=== PATIENT | female | born 1960 | race Caucasian/White ===

== ENCOUNTER → 2018-02-24 13:02 | Outpatient (CLI) | payer OTHER, SELFPAY | PROVIDERS: PCP Family Medicine; Visit Provider Family Medicine | DX: M85.851 Other specified disorders of bone density and structure, right thigh (principal) | CPT/HCPCS: 77080 ==

== ENCOUNTER → 2018-08-31 10:33 | Outpatient (CLI) | payer OTHER, SELFPAY ==
--- NOTE | 2018-08-31 | DI.CT.S_ITS ---
PROCEDURE: CT SOFT TISSUE NECK WO/W CON INDICATIONS: LEFT SIDED CHRONIC SIALOADENITIS TECHNIQUE: Before and after the administration of intravenous contrast, 2.0 mm axial sections acquired through the neck and down to the pierre. Additional 2.0 mm coronal and sagittal reformats were generated of the contrast enhanced images. For radiation dose reduction, the following was used: automated exposure control. COMPARISON: None. FINDINGS: Image quality: Excellent. Parotid and submandibular glands: Parotid and submandibular glands are normal in size. A couple of small soft tissue nodules are present within right parotid gland. No sialolithiasis. Thyroid: Thyroid gland is normal in morphology. Small low density nodules in thyroid lobes are noted bilaterally. Lymph nodes: No enlarged lymph nodes seen throughout the neck. Vessels: Visualized vasculature appears patent. Neck spaces: The oropharynx, nasopharynx, and pharynx demonstrate no mucosal lesions. The vocal cords, false vocal cords, pyriform sinuses, epiglottis, vallecula, and tongue base all appear normal. Extramucosal spaces appear unremarkable. Glands: The parotid and submandibular glands appear normal. Miscellaneous: Visualized lungs appear clear. Superficial soft tissues appear normal. Bones: No suspicious bony lesions. There is moderate degenerative disc disease at C5-6. Visualized sinuses and mastoids appear unremarkable. IMPRESSION: 1. No sialolithiasis. 2. Small soft tissue nodules are present in the right parotid gland. Differential diagnoses include benign parotid tumors such as pleomorphic adenomas, small intraparotid lymph nodes and less likely malignant parotid neoplasms. Dictated by: Sussy Aguilar M.D. on 08/31/2018 at 13:08 Approved by: Sussy Aguilar M.D. on 08/31/2018 at 14:32
== END ==
PROVIDERS: PCP Family Medicine; Visit Provider Otolaryngology
DX: K11.23 Chronic sialoadenitis (principal); M50.322 Other cervical disc degeneration at C5-C6 level
CPT/HCPCS: 70492; Q9967

== ENCOUNTER 2019-09-05 16:45 | Outpatient (RCR) | payer OTHER, SELFPAY ==
--- NOTE | 2019-04-18 17:35 | PT.OIE ---
Current Diagnoses Medial epicondylitis, right elbow (04/18/19) Lateral epicondylitis, right elbow (04/18/19) Provider Visit Care Team Role Provider Type Taj Farley MD Primary Care Provider Physician Specialty: Family Practice Address: [address] [place], [address] Email: [email or web address] Kurt Huber DO Attending Provider Non-Staff Specialty: Orthopedics Address: [address] [place] [address], [id number] Email: Physical Therapy Initial Evaluation PT-OP-A Visit Information Start: 04/18/19 15:54 Freq: Status: Active Protocol: Document 04/18/19 16:47 EA (Rec: 04/18/19 17:22 EA [id number]) Out-Patient Physical Therapy Visit Information Visit Information Visit Type Initial Evaluation Visit Start Time 14:30 Visit Stop Time 15:05 Total Visit Minutes 35 Visit Number 1 Evaluation Information Evaluation Date 04/18/19 PT-OP-B Current Condition Start: 04/18/19 15:54 Freq: Status: Active Protocol: Document 04/18/19 16:47 EA (Rec: 04/18/19 17:22 EA [id number]) Current Condition History of Current Condition Onset Date 07/2018 Current Complaints gripping and lifting difficulty due to right elbow pain History of Current Condition Patient reports multiple injection to left elbow years ago due to tennis elbow diagnosis. She reports this condition recurs again last July/2018 but got better on October 2018 after steroid shots. She reports on 2018 she injured her elbow at work by banging her elbow at the wall and made re- aggravated the condition. She went to see her doctor few days after the injury and diagnoses to have left tennis elbow. Prior Treatments and Tests X-rays recently with not fracture identified per patient No formal PT treatment reports Future Testing and Treatments Planned Doctor's follow up next week. 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 Functional Limitations- Mobility/Gait Limited with hair combing, fixing upper undergarment Functional Limitations- Work/School Unable to comeback to work yet due to limitation Functional Limitations- Recreation/ Unable to perform cooking/baking Hobbies Personal Factors Other Personal Factors That May Effect Chronicity of the condition Therapy/Recovery PT-OP-C Subjective Start: 04/18/19 15:54 Freq: Status: Active Protocol: Document 04/18/19 16:47 EA (Rec: 04/18/19 17:22 EA [id number]) OP-PT Subjective Patient Comments Patient Comments I can't use my hair pin. She states that pain is somewhat burning and increased if I reach over my head or fix my hair. Patient Reported Progress Worse Patient Questionnaires Quick Dash- Upper Extremity Quick Dash UE Score 86 Quick Dash UE Impairment 80 to 99% Impaired (Score 80- 99) PT-OP-F Manual Assessment Start: 04/18/19 15:54 Freq: Status: Active Protocol: Document 04/18/19 16:47 EA (Rec: 04/18/19 17:22 EA [id number]) Manual Assessments Soft Tissue Assessment Soft Tissue Mobility Assessment Tight wrist extensors, radial deviators, pronators, R Joint Mobility Assessment Joint Mobility Assessment Normal PT-OP-J Posture/Palpation/Skin Start: 04/18/19 15:54 Freq: Status: Active Protocol: Document 04/18/19 16:47 EA (Rec: 04/18/19 17:22 EA [id number]) Posture Evaluation Comments Posture Comments WFL. Elbow slightly bent in standing Skin Assessment Other Assessments Skin Assessment Comments No signs of acute inflammation or skin discoloration noted. PT-OP-K Range of Motion Start: 04/18/19 15:54 Freq: Status: Active Protocol: Document 04/18/19 16:47 EA (Rec: 04/18/19 17:22 EA [id number]) Elbow/Forearm Range of Motion Elbow/Forearm Right Active Elbow Flexion (degrees) 135 Elbow Extension (degrees) 0 Elbow Hyperextension 5 Pronation (degrees) 80 Supination (degrees) 90 Wrist Goniometric Range of Motion Wrist Left Wrist ROM WFL Yes Right Wrist ROM WFL No Flexion Active (degrees) 45 Extension Active (degrees) 30 Ulnar Deviation Active (degrees) 30 Radial Deviation Active (degrees) 30 PT-OP-L Special Tests Start: 04/18/19 15:54 Freq: Status: Active Protocol: Document 04/18/19 16:47 EA (Rec: 04/18/19 17:22 EA [id number]) Special Tests Wrist/Hand Special Tests Lateral Epicondylitis Extended Test Results + PT-OP-M Strength Start: 04/18/19 15:54 Freq: Status: Active Protocol: Document 04/18/19 16:47 EA (Rec: 04/18/19 17:22 EA [id number]) Elbow/Forearm Strength Elbow and Forearm Manual Muscle Testing Left Flexion (C6) 5 Normal Extension (C7) 5 Normal Pronation 5 Normal Supination 5 Normal Right Flexion (C6) 4 Good Extension (C7) 4 Good Supination 3+ Fair+ Wrist Strength Wrist Manual Muscle Testing Left Reason Not Measured WFL Right Flexion (C7) 4- Good- Extension (C6) 3+ Fair+ Ulnar Deviation 3+ Fair+ Radial Deviation 3+ Fair+ PT-OP-Q Treatments Start: 04/18/19 15:54 Freq: Status: Active Protocol: Document 04/18/19 16:47 EA (Rec: 04/18/19 17:22 EA [id number]) Self-Care/Home Management Treatment Education Patient Education Home Exercise Program Joint Protection Pain Management Safety PT-OP-T Assessment and Plan Start: 04/18/19 15:54 Freq: Status: Active Protocol: Document 04/18/19 15:55 EA (Rec: 04/18/19 15:57 EA [id number]) Physical Therapy Assessment Rehab Potential Rehabilitation Potential Good Evaluation Complexity Number of Personal Factors/Comorbidities 0 Number of Body Systems Impaired 1-2 Clinical Presentation at Evaluation Evolving Impairments Impairments Activity Tolerance Functional Activities Pain ROM Soft Tissue Mobility Strength Goals Four Impairment Impaired ROM Safekeeping Clerk Goal (LTG) Patient will reach full wrist AROM to enable patient perform hand task without limitation LTG Duration 4 wks Three Impairment Right elbow Pain 7/10 Safekeeping Clerk Goal (LTG) Patient will subjectively report pain score of 2/10 to enable patient perform home task that requires wrist motions without limitation. LTG Duration 5 wks Two Impairment QuickDash score 89/100 Halfway Goal (LTG) Patient will have quickDash score of <25/100 LTG Duration 5 wks One Impairment No HEP in place Safekeeping Clerk Goal (LTG) Patient will perform HEP safely and independently. LTG Duration 3 wks Assessment Summary Assessment Pleasant 58 y/o F patient with referring diagnosis of right lateral epicondylitis. Today patient exhibited difficulty of right wrist motion in most directions. Lateral epicondylitis special tests and signs and symptoms are consistent with a referring diagnosis. Due to impaired wrist extensor function, patient unable to perform daily dominant hand tasks that requires wrist extension/ deviations that is supposed to be normal at her age. Patient would benefit to skilled PT with emphasis of regaining ROM, strengthening, and regular preventative education. Patient exhibits good potential for recovery and will likely get back to PLOF. Physical Therapy Plan Frequency and Duration Frequency of Treatment 2x/Week Duration of Treatment 8 wks Plan of Care Start Date 04/18/19 Plan of Care End Date 06/13/19 Therapeutic Interventions Therapeutic Interventions Home Exercise Program Joint Mobilizations Manual Therapy Patient/Caregiver Education Self-Care/Home Management Soft Tissue Mobilization Taping Therapeutic Exercises Modalities Cold Pack/Ice Massage Electric Stimulation Hot Packs Ultrasound Next Visit Focus/Plan Next Note Type Treatment Note
--- NOTE | 2019-04-18 17:35 | PT.OPPOC ---
Current Diagnoses Medial epicondylitis, right elbow (04/18/19) Lateral epicondylitis, right elbow (04/18/19) Provider Visit Care Team Role Provider Type Taj Farley MD Primary Care Provider Physician Specialty: Family Practice Address: [address] [place], [address] Email: [email or web address] Kurt Huber DO Attending Provider Non-Staff Specialty: Orthopedics Address: [address] [place] [address], [id number] Email: Plan Of Care PT-OP-T Assessment and Plan Start: 04/18/19 15:54 Freq: Status: Active Protocol: Document 04/18/19 15:55 EA (Rec: 04/18/19 15:57 EA [id number]) Physical Therapy Assessment Rehab Potential Rehabilitation Potential Good Evaluation Complexity Number of Personal Factors/Comorbidities 0 Number of Body Systems Impaired 1-2 Clinical Presentation at Evaluation Evolving Impairments Impairments Activity Tolerance Functional Activities Pain ROM Soft Tissue Mobility Strength Goals Four Impairment Impaired ROM Care Home Goal (LTG) Patient will reach full wrist AROM to enable patient perform hand task without limitation LTG Duration 4 wks Three Impairment Right elbow Pain 7/10 Hole Filler Goal (LTG) Patient will subjectively report pain score of 2/10 to enable patient perform home task that requires wrist motions without limitation. LTG Duration 5 wks Two Impairment QuickDash score 89/100 Hole Filler Goal (LTG) Patient will have quickDash score of <25/100 LTG Duration 5 wks One Impairment No HEP in place Care Home Goal (LTG) Patient will perform HEP safely and independently. LTG Duration 3 wks Assessment Summary Assessment Pleasant 58 y/o F patient with referring diagnosis of right lateral epicondylitis. Today patient exhibited difficulty of right wrist motion in most directions. Lateral epicondylitis special tests and signs and symptoms are consistent with a referring diagnosis. Due to impaired wrist extensor function, patient unable to perform daily dominant hand tasks that requires wrist extension/ deviations that is supposed to be normal at her age. Patient would benefit to skilled PT with emphasis of regaining ROM, strengthening, and regular preventative education. Patient exhibits good potential for recovery and will likely get back to PLOF. Physical Therapy Plan Frequency and Duration Frequency of Treatment 2x/Week Duration of Treatment 8 wks Plan of Care Start Date 04/18/19 Plan of Care End Date 06/13/19 Therapeutic Interventions Therapeutic Interventions Home Exercise Program Joint Mobilizations Manual Therapy Patient/Caregiver Education Self-Care/Home Management Soft Tissue Mobilization Taping Therapeutic Exercises Modalities Cold Pack/Ice Massage Electric Stimulation Hot Packs Ultrasound Next Visit Focus/Plan Next Note Type Treatment Note Plan of Care Dates Plan of Care Start Date 04/18/19 Plan of Care End Date 06/13/19 Please Sign and Return: I have reviewed this Plan of Care and certify that the skilled therapy services above are required to meet the patient?s needs. Physician Signature Date Printed Name and Credentials Clinical Instructor Signature Printed Name and Credentials
--- NOTE | 2019-04-24 15:15 | PT.OTN ---
Current Diagnoses Medial epicondylitis, right elbow (04/24/19) Lateral epicondylitis, right elbow (04/24/19) Physical Therapy Treatment Note PT-OP-A Visit Information Start: 04/18/19 15:54 Freq: Status: Active Protocol: Document 04/24/19 14:30 DCW (Rec: 04/24/19 15:15 DCW [id number]) Out-Patient Physical Therapy Visit Information Visit Information Visit Type Treatment Note Visit Start Time 14:30 Visit Stop Time 15:15 Total Visit Minutes 45 Visit Number 2 Evaluation Information Evaluation Date 04/18/19 PT-OP-B Current Condition Start: 04/18/19 15:54 Freq: Status: Active Protocol: Document 04/18/19 16:47 EA (Rec: 04/18/19 17:22 EA [id number]) Current Condition History of Current Condition Onset Date 07/2018 Current Complaints gripping and lifting difficulty due to right elbow pain History of Current Condition Patient reports multiple injection to left elbow years ago due to tennis elbow diagnosis. She reports this condition recurs again last July/2018 but got better on October 2018 after steroid shots. She reports on 2018 she injured her elbow at work by banging her elbow at the wall and made re- aggravated the condition. She went to see her doctor few days after the injury and diagnoses to have left tennis elbow. Prior Treatments and Tests X-rays recently with not fracture identified per patient No formal PT treament reports Future Testing and Treatments Planned Doctor's follow up next week. 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 Functional Limitations- Mobility/Gait Limited with hair combing, fixing upper undergarment Functional Limitations- Work/School Unable to comeback to work yet due to limitation Functional Limitations- Recreation/ Unable to perform cooking/ Hobbies baking Personal Factors Other Personal Factors That May Effect Chronicity of the condition Therapy/Recovery PT-OP-C Subjective Start: 04/18/19 15:54 Freq: Status: Active Protocol: Document 04/24/19 14:30 DCW (Rec: 04/24/19 15:15 DCW [id number]) OP-PT Subjective Patient Comments Patient Comments I squeezed my toothpaste tube today, which is a big milestone. PT-OP-F Manual Assessment Start: 04/18/19 15:54 Freq: Status: Active Protocol: Document 04/18/19 16:47 EA (Rec: 04/18/19 17:22 EA [id number]) Manual Assessments Soft Tissue Assessment Soft Tissue Mobility Assessment Tight wrist extensors, radial deviators, pronators, R Joint Mobility Assessment Joint Mobility Assessment Normal PT-OP-J Posture/Palpation/Skin Start: 04/18/19 15:54 Freq: Status: Active Protocol: Document 04/18/19 16:47 EA (Rec: 04/18/19 17:22 EA [id number]) Posture Evaluation Comments Posture Comments WFL. Elbow slightly bent in standing Skin Assessment Other Assessments Skin Assessment Comments No signs of acute inflammation or skin discoloration noted. PT-OP-K Range of Motion Start: 04/18/19 15:54 Freq: Status: Active Protocol: Document 04/18/19 16:47 EA (Rec: 04/18/19 17:22 EA [id number]) Elbow/Forearm Range of Motion Elbow/Forearm Right Active Elbow Flexion (degrees) 135 Elbow Extension (degrees) 0 Elbow Hyperextension 5 Pronation (degrees) 80 Supination (degrees) 90 Wrist Goniometric Range of Motion Wrist Left Wrist ROM WFL Yes Right Wrist ROM WFL No Flexion Active (degrees) 45 Extension Active (degrees) 30 Ulnar Deviation Active (degrees) 30 Radial Deviation Active (degrees) 30 PT-OP-L Special Tests Start: 04/18/19 15:54 Freq: Status: Active Protocol: Document 04/18/19 16:47 EA (Rec: 04/18/19 17:22 EA [id number]) Special Tests Wrist/Hand Special Tests Lateral Epicondylitis Extended Test Results + PT-OP-M Strength Start: 04/18/19 15:54 Freq: Status: Active Protocol: Document 04/18/19 16:47 EA (Rec: 04/18/19 17:22 EA [id number]) Elbow/Forearm Strength Elbow and Forearm Manual Muscle Testing Left Flexion (C6) 5 Normal Extension (C7) 5 Normal Pronation 5 Normal Supination 5 Normal Right Flexion (C6) 4 Good Extension (C7) 4 Good Supination 3+ Fair+ Wrist Strength Wrist Manual Muscle Testing Left Reason Not Measured WFL Right Flexion (C7) 4- Good- Extension (C6) 3+ Fair+ Ulnar Deviation 3+ Fair+ Radial Deviation 3+ Fair+ PT-OP-Q Treatments Start: 04/18/19 15:54 Freq: Status: Active Protocol: Document 04/24/19 14:30 DCW (Rec: 04/24/19 15:15 DCW [id number]) Therapeutic Exercises Sitting Exercises Landscape Painter Strengthening Sitting Exercise Name Putty Landscape Painter - Full fist, individual fingers, finger extension Side left Resistance Yellow Equipment Used T-putty Supination/Pronation Sitting Exercise Name Hammer Pronation/Supination Manual Therapy Treatment Soft Tissue Mobilization Common Extensor Tendon Body Location Common Extensor Tendon Mobilization Type Cross-Friction Sustained Pressure Intensity/Depth Superficial Taping Lat Epicondylitis Body Location R Lat Epicondylitis Type of Tape Kinesio Tape PT-OP-R Modalities Start: 04/18/19 15:54 Freq: Status: Active Protocol: Document 04/24/19 14:30 DCW (Rec: 04/24/19 15:15 DCW [id number]) Hot Pack/Cold Pack Treatment Ice Massage Location R Lat Epicondylitis Patient Position Sitting Treatment Duration (minutes) 5 PT-OP-T Assessment and Plan Start: 04/18/19 15:54 Freq: Status: Active Protocol: Document 04/24/19 14:30 DCW (Rec: 04/24/19 15:15 DCW [id number]) Physical Therapy Assessment Impairments Impairments Activity Tolerance Functional Activities Pain ROM Soft Tissue Mobility Strength Goals Four Impairment Impaired ROM Cement Grinding Mill Operator Goal (LTG) Patient will reach full wrist AROM to enable patient perform hand task without limitation LTG Duration 4 wks Three Impairment Right elbow Pain 7/10 Cement Grinding Mill Operator Goal (LTG) Patient will subjectively report pain score of 2/10 to enable patient perform home task that requires wrist motions without limitation. LTG Duration 5 wks Two Impairment QuickDash score 89/100 [facility] Goal (LTG) Patient will have quickDash score of <25/100 LTG Duration 5 wks One Impairment No HEP in place Cement Grinding Mill Operator Goal (LTG) Patient will perform HEP safely and independently. LTG Duration 3 wks Assessment Summary Assessment Pt progressing slowly with her current HEP, but beginning to see some progress. Pt motivated to try to do as much as she can to get herself better before returning to work in June. Physical Therapy Plan Frequency and Duration Frequency of Treatment 2x/Week Duration of Treatment 8 wks Plan of Care Start Date 04/18/19 Plan of Care End Date 06/13/19 Therapeutic Interventions Therapeutic Interventions Home Exercise Program Joint Mobilizations Manual Therapy Patient/Caregiver Education Self-Care/Home Management Soft Tissue Mobilization Taping Therapeutic Exercises Modalities Cold Pack/Ice Massage Electric Stimulation Hot Packs Ultrasound Next Visit Focus/Plan Next Note Type Treatment Note
--- NOTE | 2019-04-27 12:56 | PT.OTN ---
Current Diagnoses Medial epicondylitis, right elbow (04/27/19) Lateral epicondylitis, right elbow (04/27/19) Physical Therapy Treatment Note PT-OP-A Visit Information Start: 04/18/19 15:54 Freq: Status: Active Protocol: Document 04/27/19 10:30 AMB (Rec: 04/27/19 11:18 AMB [email or web address]) Out-Patient Physical Therapy Visit Information Visit Information Visit Type Treatment Note Visit Start Time 10:30 Visit Stop Time 11:15 Total Visit Minutes 45 Visit Number 3 PT-OP-B Current Condition Start: 04/18/19 15:54 Freq: Status: Active Protocol: Document 04/18/19 16:47 EA (Rec: 04/18/19 17:22 EA [id number]) Current Condition History of Current Condition Onset Date 07/2018 Current Complaints gripping and lifting difficulty due to right elbow pain History of Current Condition Patient reports multiple injection to left elbow years ago due to tennis elbow diagnosis. She reports this condition recurs again last July/2018 but got better on October 2018 after steroid shots. She reports on 2018 she injured her elbow at work by banging her elbow at the wall and made re- aggravated the condition. She went to see her doctor few days after the injury and diagnoses to have left tennis elbow. Prior Treatments and Tests X-rays recently with not fracture identified per patient No formal PT treament reports Future Testing and Treatments Planned Doctor's follow up next week. 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 Functional Limitations- Mobility/Gait Limited with hair combing, fixing upper undergarment Functional Limitations- Work/School Unable to comeback to work yet due to limitation Functional Limitations- Recreation/ Unable to perform cooking/ Hobbies baking Personal Factors Other Personal Factors That May Effect Chronicity of the condition Therapy/Recovery PT-OP-C Subjective Start: 04/18/19 15:54 Freq: Status: Active Protocol: Document 04/27/19 10:30 AMB (Rec: 04/27/19 11:18 AMB [email or web address]) OP-PT Subjective Patient Comments Patient Comments Pt has noticed that extending her elbow and opening her hand continue to be painful She saw the ortho surgeon who increased the number of reps of her exercises, but told her to avoid lifting weights for now. PT-OP-F Manual Assessment Start: 04/18/19 15:54 Freq: Status: Active Protocol: Document 04/18/19 16:47 EA (Rec: 04/18/19 17:22 EA [id number]) Manual Assessments Soft Tissue Assessment Soft Tissue Mobility Assessment Tight wrist extensors, radial deviators, pronators, R Joint Mobility Assessment Joint Mobility Assessment Normal PT-OP-J Posture/Palpation/Skin Start: 04/18/19 15:54 Freq: Status: Active Protocol: Document 04/18/19 16:47 EA (Rec: 04/18/19 17:22 EA [id number]) Posture Evaluation Comments Posture Comments WFL. Elbow slightly bent in standing Skin Assessment Other Assessments Skin Assessment Comments No signs of acute inflammation or skin discoloration noted. PT-OP-K Range of Motion Start: 04/18/19 15:54 Freq: Status: Active Protocol: Document 04/18/19 16:47 EA (Rec: 04/18/19 17:22 EA [id number]) Elbow/Forearm Range of Motion Elbow/Forearm Right Active Elbow Flexion (degrees) 135 Elbow Extension (degrees) 0 Elbow Hyperextension 5 Pronation (degrees) 80 Supination (degrees) 90 Wrist Goniometric Range of Motion Wrist Left Wrist ROM WFL Yes Right Wrist ROM WFL No Flexion Active (degrees) 45 Extension Active (degrees) 30 Ulnar Deviation Active (degrees) 30 Radial Deviation Active (degrees) 30 PT-OP-L Special Tests Start: 04/18/19 15:54 Freq: Status: Active Protocol: Document 04/18/19 16:47 EA (Rec: 04/18/19 17:22 EA [id number]) Special Tests Wrist/Hand Special Tests Lateral Epicondylitis Extended Test Results + PT-OP-M Strength Start: 04/18/19 15:54 Freq: Status: Active Protocol: Document 04/18/19 16:47 EA (Rec: 04/18/19 17:22 EA [id number]) Elbow/Forearm Strength Elbow and Forearm Manual Muscle Testing Left Flexion (C6) 5 Normal Extension (C7) 5 Normal Pronation 5 Normal Supination 5 Normal Right Flexion (C6) 4 Good Extension (C7) 4 Good Supination 3+ Fair+ Wrist Strength Wrist Manual Muscle Testing Left Reason Not Measured WFL Right Flexion (C7) 4- Good- Extension (C6) 3+ Fair+ Ulnar Deviation 3+ Fair+ Radial Deviation 3+ Fair+ PT-OP-Q Treatments Start: 04/18/19 15:54 Freq: Status: Active Protocol: Document 04/27/19 12:37 AMB (Rec: 04/27/19 12:56 AMB [email or web address]) Therapeutic Exercises Sitting Exercises 2 Sitting Exercise Name wrist extensor stretch Reps/Minutes 30x2 1 Sitting Exercise Name wrist extension Resistance AROM Reps/Minutes 2x8 Supination/Pronation Sitting Exercise Name Pronation/Supination Resistance AROM Reps/Minutes 2x8 Manual Therapy Treatment Soft Tissue Mobilization Common Extensor Tendon Body Location Common Extensor Tendon Mobilization Type Cross-Friction Sustained Pressure Intensity/Depth Superficial Taping Lat Epicondylitis Body Location R Lat Epicondylitis Type of Tape Kinesio Tape PT-OP-R Modalities Start: 04/18/19 15:54 Freq: Status: Active Protocol: Document 04/27/19 12:37 AMB (Rec: 04/27/19 12:56 AMB [email or web address]) Hot Pack/Cold Pack Treatment Ice Massage Location R Lat Epicondylitis Patient Position Sitting Treatment Duration (minutes) 5 Ultrasound Therapy Treatment Right Forearm Treatment Duration (minutes) 7 Patient Position Sitting Coupling Medium Ultrasound Gel Frequency Setting (mHz) 3 Mode Setting Pulsed Duty Cycle 50% Intensity Setting (w/cm2) 1.2 PT-OP-T Assessment and Plan Start: 04/18/19 15:54 Freq: Status: Active Protocol: Document 04/27/19 10:30 AMB (Rec: 04/27/19 11:18 AMB [email or web address]) Physical Therapy Assessment Assessment Summary Assessment Pt overall seeing progress but concerned that she needs to go back to work in 7 weeks and the repetitive strains that that will entail. Physical Therapy Plan Next Visit Focus/Plan Next Note Type Treatment Note Next Visit Plan Continue with ultrasound, manual therapy, slowly progress HEP
--- NOTE | 2019-04-30 12:57 | PT.OTN ---
Current Diagnoses Medial epicondylitis, right elbow (04/30/19) Lateral epicondylitis, right elbow (04/30/19) Physical Therapy Treatment Note PT-OP-A Visit Information Start: 04/18/19 15:54 Freq: Status: Active Protocol: Document 04/30/19 09:45 AMB (Rec: 04/30/19 11:25 AMB [id number]) Out-Patient Physical Therapy Visit Information Visit Information Visit Type Treatment Note Visit Start Time 09:45 Visit Stop Time 10:30 Total Visit Minutes 45 Visit Number 4 PT-OP-B Current Condition Start: 04/18/19 15:54 Freq: Status: Active Protocol: Document 04/18/19 16:47 EA (Rec: 04/18/19 17:22 EA [id number]) Current Condition History of Current Condition Onset Date 07/2018 Current Complaints gripping and lifting difficulty due to right elbow pain History of Current Condition Patient reports multiple injection to left elbow years ago due to tennis elbow diagnosis. She reports this condition recurs again last July/2018 but got better on October 2018 after steroid shots. She reports on 2018 she injured her elbow at work by banging her elbow at the wall and made re- aggravated the condition. She went to see her doctor few days after the injury and diagnoses to have left tennis elbow. Prior Treatments and Tests X-rays recently with not fracture identified per patient No formal PT treament reports Future Testing and Treatments Planned Doctor's follow up next week. 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 PT-OP-F Manual Assessment Start: 04/18/19 15:54 Freq: Status: Active Protocol: Document 04/18/19 16:47 EA (Rec: 04/18/19 17:22 EA [id number]) Manual Assessments Soft Tissue Assessment Soft Tissue Mobility Assessment Tight wrist extensors, radial deviators, pronators, R Joint Mobility Assessment Joint Mobility Assessment Normal PT-OP-J Posture/Palpation/Skin Start: 04/18/19 15:54 Freq: Status: Active Protocol: Document 04/18/19 16:47 EA (Rec: 04/18/19 17:22 EA [id number]) Posture Evaluation Comments Posture Comments WFL. Elbow slightly bent in standing Skin Assessment Other Assessments Skin Assessment Comments No signs of acute inflammation or skin discoloration noted. PT-OP-K Range of Motion Start: 04/18/19 15:54 Freq: Status: Active Protocol: Document 04/18/19 16:47 EA (Rec: 04/18/19 17:22 EA [id number]) Elbow/Forearm Range of Motion Elbow/Forearm Right Active Elbow Flexion (degrees) 135 Elbow Extension (degrees) 0 Elbow Hyperextension 5 Pronation (degrees) 80 Supination (degrees) 90 Wrist Goniometric Range of Motion Wrist Left Wrist ROM WFL Yes Right Wrist ROM WFL No Flexion Active (degrees) 45 Extension Active (degrees) 30 Ulnar Deviation Active (degrees) 30 Radial Deviation Active (degrees) 30 PT-OP-L Special Tests Start: 04/18/19 15:54 Freq: Status: Active Protocol: Document 04/18/19 16:47 EA (Rec: 04/18/19 17:22 EA [id number]) Special Tests Wrist/Hand Special Tests Lateral Epicondylitis Extended Test Results + PT-OP-M Strength Start: 04/18/19 15:54 Freq: Status: Active Protocol: Document 04/18/19 16:47 EA (Rec: 04/18/19 17:22 EA [id number]) Elbow/Forearm Strength Elbow and Forearm Manual Muscle Testing Left Flexion (C6) 5 Normal Extension (C7) 5 Normal Pronation 5 Normal Supination 5 Normal Right Flexion (C6) 4 Good Extension (C7) 4 Good Supination 3+ Fair+ Wrist Strength Wrist Manual Muscle Testing Left Reason Not Measured WFL Right Flexion (C7) 4- Good- Extension (C6) 3+ Fair+ Ulnar Deviation 3+ Fair+ Radial Deviation 3+ Fair+ PT-OP-Q Treatments Start: 04/18/19 15:54 Freq: Status: Active Protocol: Document 04/30/19 09:45 AMB (Rec: 04/30/19 12:56 AMB [email or web address]) Therapeutic Exercises Sitting Exercises 3 Sitting Exercise Name 3-way bicep curl Resistance AROM Comments 10 ea 2 Sitting Exercise Name wrist extensor stretch Reps/Minutes 30x2 1 Sitting Exercise Name wrist extension Resistance AROM Reps/Minutes 2x10 Supination/Pronation Sitting Exercise Name Pronation/Supination Resistance AROM Reps/Minutes 2x10 Manual Therapy Treatment Soft Tissue Mobilization Common Extensor Tendon Body Location Common Extensor Tendon Mobilization Type Cross-Friction Sustained Pressure Intensity/Depth Superficial Taping Lat Epicondylitis Body Location R Lat Epicondylitis Type of Tape Kinesio Tape PT-OP-R Modalities Start: 04/18/19 15:54 Freq: Status: Active Protocol: Document 04/30/19 09:45 AMB (Rec: 04/30/19 12:56 AMB [email or web address]) Ultrasound Therapy Treatment Right Forearm Treatment Duration (minutes) 7 Patient Position Sitting Coupling Medium Ultrasound Gel Frequency Setting (mHz) 3 Mode Setting Pulsed Duty Cycle 50% Intensity Setting (w/cm2) 1.2 PT-OP-T Assessment and Plan Start: 04/18/19 15:54 Freq: Status: Active Protocol: Document 04/30/19 09:45 AMB (Rec: 04/30/19 12:56 AMB [email or web address]) Physical Therapy Assessment Assessment Summary Assessment Added 3-way bicep curl AROM today pt tolerated well with the exception of end range flexion which increased pain. Overall pt is improving but slowly. Physical Therapy Plan Next Visit Focus/Plan Next Note Type Treatment Note Next Visit Plan Continue with ultrasound, manual therapy, slowly progress HEP
--- NOTE | 2019-05-03 15:24 | PT.OTN ---
Current Diagnoses Medial epicondylitis, right elbow (05/03/19) Lateral epicondylitis, right elbow (05/03/19) Physical Therapy Treatment Note PT-OP-A Visit Information Start: 04/18/19 15:54 Freq: Status: Active Protocol: Document 05/03/19 10:30 AMB (Rec: 05/03/19 12:57 AMB [email or web address]) Out-Patient Physical Therapy Visit Information Visit Information Visit Type Treatment Note Visit Start Time 09:45 Visit Stop Time 10:30 Total Visit Minutes 45 Visit Number 5 PT-OP-B Current Condition Start: 04/18/19 15:54 Freq: Status: Active Protocol: Document 04/18/19 16:47 EA (Rec: 04/18/19 17:22 EA [id number]) Current Condition History of Current Condition Onset Date 07/2018 Current Complaints gripping and lifting difficulty due to right elbow pain History of Current Condition Patient reports multiple injection to left elbow years ago due to tennis elbow diagnosis. She reports this condition recurs again last July/2018 but got better on October 2018 after steroid shots. She reports on 2018 she injured her elbow at work by banging her elbow at the wall and made re- aggravated the condition. She went to see her doctor few days after the injury and diagnoses to have left tennis elbow. Prior Treatments and Tests X-rays recently with not fracture identified per patient No formal PT treament reports Future Testing and Treatments Planned Doctor's follow up next week. 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 Functional Limitations- Mobility/Gait Limited with hair combing, fixing upper undergarment Functional Limitations- Work/School Unable to comeback to work yet due to limitation Functional Limitations- Recreation/ Unable to perform cooking/ Hobbies baking Personal Factors Other Personal Factors That May Effect Chronicity of the condition Therapy/Recovery PT-OP-C Subjective Start: 04/18/19 15:54 Freq: Status: Active Protocol: Document 05/03/19 10:30 AMB (Rec: 05/03/19 12:57 AMB [email or web address]) OP-PT Subjective Patient Comments Patient Comments Pt feels that she may have overdone it because she gripped a gatorade yesterday and it really hurt, she also used the yellow theraputty for about 15 minutes and that increased her pain PT-OP-F Manual Assessment Start: 04/18/19 15:54 Freq: Status: Active Protocol: Document 04/18/19 16:47 EA (Rec: 04/18/19 17:22 EA [id number]) Manual Assessments Soft Tissue Assessment Soft Tissue Mobility Assessment Tight wrist extensors, radial deviators, pronators, R Joint Mobility Assessment Joint Mobility Assessment Normal PT-OP-J Posture/Palpation/Skin Start: 04/18/19 15:54 Freq: Status: Active Protocol: Document 04/18/19 16:47 EA (Rec: 04/18/19 17:22 EA [id number]) Posture Evaluation Comments Posture Comments WFL. Elbow slightly bent in standing Skin Assessment Other Assessments Skin Assessment Comments No signs of acute inflammation or skin discoloration noted. PT-OP-K Range of Motion Start: 04/18/19 15:54 Freq: Status: Active Protocol: Document 04/18/19 16:47 EA (Rec: 04/18/19 17:22 EA [id number]) Elbow/Forearm Range of Motion Elbow/Forearm Right Active Elbow Flexion (degrees) 135 Elbow Extension (degrees) 0 Elbow Hyperextension 5 Pronation (degrees) 80 Supination (degrees) 90 Wrist Goniometric Range of Motion Wrist Left Wrist ROM WFL Yes Right Wrist ROM WFL No Flexion Active (degrees) 45 Extension Active (degrees) 30 Ulnar Deviation Active (degrees) 30 Radial Deviation Active (degrees) 30 PT-OP-L Special Tests Start: 04/18/19 15:54 Freq: Status: Active Protocol: Document 04/18/19 16:47 EA (Rec: 04/18/19 17:22 EA [id number]) Special Tests Wrist/Hand Special Tests Lateral Epicondylitis Extended Test Results + PT-OP-M Strength Start: 04/18/19 15:54 Freq: Status: Active Protocol: Document 04/18/19 16:47 EA (Rec: 04/18/19 17:22 EA [id number]) Elbow/Forearm Strength Elbow and Forearm Manual Muscle Testing Left Flexion (C6) 5 Normal Extension (C7) 5 Normal Pronation 5 Normal Supination 5 Normal Right Flexion (C6) 4 Good Extension (C7) 4 Good Supination 3+ Fair+ Wrist Strength Wrist Manual Muscle Testing Left Reason Not Measured WFL Right Flexion (C7) 4- Good- Extension (C6) 3+ Fair+ Ulnar Deviation 3+ Fair+ Radial Deviation 3+ Fair+ PT-OP-Q Treatments Start: 04/18/19 15:54 Freq: Status: Active Protocol: Document 05/03/19 10:30 AMB (Rec: 05/03/19 12:57 AMB [email or web address]) Therapeutic Exercises Sitting Exercises 4 Sitting Exercise Name wrist flexion Resistance AROM Reps/Minutes 2x10 2 Sitting Exercise Name wrist extensor stretch Reps/Minutes 30x2 1 Sitting Exercise Name wrist extension Resistance AROM Reps/Minutes 2x10 Supination/Pronation Sitting Exercise Name Pronation/Supination Resistance AROM Reps/Minutes 2x10 Manual Therapy Treatment Soft Tissue Mobilization Common Extensor Tendon Body Location Common Extensor Tendon Mobilization Type Cross-Friction Sustained Pressure Intensity/Depth Superficial Joint Mobilizations 1 Joint radioulnar Direction PAs Grade II Other Other Manual Treatments PROM for elbow flexion PT-OP-R Modalities Start: 04/18/19 15:54 Freq: Status: Active Protocol: Document 05/03/19 10:30 AMB (Rec: 05/03/19 13:01 AMB [email or web address]) Hot Pack/Cold Pack Treatment Cold Pack Location R elbow Patient Position Sitting Treatment Duration (minutes) 7 Ultrasound Therapy Treatment Right Forearm Treatment Duration (minutes) 7 Patient Position Sitting Coupling Medium Ultrasound Gel Frequency Setting (mHz) 3 Mode Setting Pulsed Duty Cycle 50% Intensity Setting (w/cm2) 1.2 PT-OP-T Assessment and Plan Start: 04/18/19 15:54 Freq: Status: Active Protocol: Document 05/03/19 10:30 AMB (Rec: 05/03/19 12:57 AMB [email or web address]) Physical Therapy Assessment Assessment Summary Assessment Reassured pt that she has not permanently injured arm and to continue to try to move elbow through full ROM. Try to use theraputty for brief periods of time throughout day rather than all at once. Physical Therapy Plan Next Visit Focus/Plan Next Note Type Treatment Note Next Visit Plan Pt's ortho instructed her to increase number of reps, but not weight at this time.
--- NOTE | 2019-05-08 16:40 | PT.OTN ---
Current Diagnoses Medial epicondylitis, right elbow (05/08/19) Lateral epicondylitis, right elbow (05/08/19) Physical Therapy Treatment Note PT-OP-A Visit Information Start: 04/18/19 15:54 Freq: Status: Active Protocol: Document 05/08/19 16:25 GGD (Rec: 05/08/19 16:40 GGD [email or web address]) Out-Patient Physical Therapy Visit Information Visit Information Visit Type Treatment Note Visit Start Time 15:15 Visit Stop Time 16:05 Total Visit Minutes 50 Visit Number 6 Number of STEAM FINISHER Visits 1 PT-OP-B Current Condition Start: 04/18/19 15:54 Freq: Status: Active Protocol: Document 04/18/19 16:47 EA (Rec: 04/18/19 17:22 EA [id number]) Current Condition History of Current Condition Onset Date 07/2018 Current Complaints gripping and lifting difficulty due to right elbow pain History of Current Condition Patient reports multiple injection to left elbow years ago due to tennis elbow diagnosis. She reports this condition recurs again last July/2018 but got better on October 2018 after steroid shots. She reports on 2018 she injured her elbow at work by banging her elbow at the wall and made re- aggravated the condition. She went to see her doctor few days after the injury and diagnoses to have left tennis elbow. Prior Treatments and Tests X-rays recently with not fracture identified per patient No formal PT treament reports Future Testing and Treatments Planned Doctor's follow up next week. 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 Functional Limitations- Mobility/Gait Limited with hair combing, fixing upper undergarment Functional Limitations- Work/School Unable to comeback to work yet due to limitation Functional Limitations- Recreation/ Unable to perform cooking/ Hobbies baking Personal Factors Other Personal Factors That May Effect Chronicity of the condition Therapy/Recovery PT-OP-C Subjective Start: 04/18/19 15:54 Freq: Status: Active Protocol: Document 05/08/19 16:25 GGD (Rec: 05/08/19 16:40 GGD [email or web address]) OP-PT Subjective Patient Comments Patient Comments Pt states she feeling better this week. She is now able lift her coffee cup. PT-OP-F Manual Assessment Start: 04/18/19 15:54 Freq: Status: Active Protocol: Document 04/18/19 16:47 EA (Rec: 04/18/19 17:22 EA [id number]) Manual Assessments Soft Tissue Assessment Soft Tissue Mobility Assessment Tight wrist extensors, radial deviators, pronators, R Joint Mobility Assessment Joint Mobility Assessment Normal PT-OP-J Posture/Palpation/Skin Start: 04/18/19 15:54 Freq: Status: Active Protocol: Document 04/18/19 16:47 EA (Rec: 04/18/19 17:22 EA [id number]) Posture Evaluation Comments Posture Comments WFL. Elbow slightly bent in standing Skin Assessment Other Assessments Skin Assessment Comments No signs of acute inflammation or skin discoloration noted. PT-OP-K Range of Motion Start: 04/18/19 15:54 Freq: Status: Active Protocol: Document 04/18/19 16:47 EA (Rec: 04/18/19 17:22 EA [id number]) Elbow/Forearm Range of Motion Elbow/Forearm Right Active Elbow Flexion (degrees) 135 Elbow Extension (degrees) 0 Elbow Hyperextension 5 Pronation (degrees) 80 Supination (degrees) 90 Wrist Goniometric Range of Motion Wrist Left Wrist ROM WFL Yes Right Wrist ROM WFL No Flexion Active (degrees) 45 Extension Active (degrees) 30 Ulnar Deviation Active (degrees) 30 Radial Deviation Active (degrees) 30 PT-OP-L Special Tests Start: 04/18/19 15:54 Freq: Status: Active Protocol: Document 04/18/19 16:47 EA (Rec: 04/18/19 17:22 EA [id number]) Special Tests Wrist/Hand Special Tests Lateral Epicondylitis Extended Test Results + PT-OP-M Strength Start: 04/18/19 15:54 Freq: Status: Active Protocol: Document 04/18/19 16:47 EA (Rec: 04/18/19 17:22 EA [id number]) Elbow/Forearm Strength Elbow and Forearm Manual Muscle Testing Left Flexion (C6) 5 Normal Extension (C7) 5 Normal Pronation 5 Normal Supination 5 Normal Right Flexion (C6) 4 Good Extension (C7) 4 Good Supination 3+ Fair+ Wrist Strength Wrist Manual Muscle Testing Left Reason Not Measured WFL Right Flexion (C7) 4- Good- Extension (C6) 3+ Fair+ Ulnar Deviation 3+ Fair+ Radial Deviation 3+ Fair+ PT-OP-Q Treatments Start: 04/18/19 15:54 Freq: Status: Active Protocol: Document 05/08/19 16:25 GGD (Rec: 05/08/19 16:40 GGD [email or web address]) Therapeutic Exercises Sitting Exercises 4 Sitting Exercise Name wrist flexion Resistance AROM Reps/Minutes 2x10 Comments 5 x with level 1 band 3 Sitting Exercise Name 3-way bicep curl Resistance AROM Comments 10 ea 2 Sitting Exercise Name wrist extensor stretch Reps/Minutes 30x2 1 Sitting Exercise Name wrist extension Resistance AROM Reps/Minutes 2x10 Comments 5x with level 1 band Supination/Pronation Sitting Exercise Name Pronation/Supination Resistance AROM Reps/Minutes 2x10 Manual Therapy Treatment Soft Tissue Mobilization Common Extensor Tendon Body Location Common Extensor Tendon Mobilization Type Cross-Friction Sustained Pressure Intensity/Depth Superficial Joint Mobilizations 1 Joint radioulnar Direction PAs Grade II Other Other Manual Treatments PROM for elbow flexion PT-OP-R Modalities Start: 04/18/19 15:54 Freq: Status: Active Protocol: Document 05/08/19 16:25 GGD (Rec: 05/08/19 16:40 GGD [email or web address]) Hot Pack/Cold Pack Treatment Cold Pack Location R elbow Patient Position Sitting Treatment Duration (minutes) 10 Ultrasound Therapy Treatment Right Forearm Treatment Duration (minutes) 8 Patient Position Sitting Coupling Medium Ultrasound Gel Frequency Setting (mHz) 3 Mode Setting Pulsed Duty Cycle 50% Intensity Setting (w/cm2) 1.2 PT-OP-T Assessment and Plan Start: 04/18/19 15:54 Freq: Status: Active Protocol: Document 05/08/19 16:25 GGD (Rec: 05/08/19 16:40 GGD [email or web address]) Physical Therapy Assessment Assessment Summary Assessment Pt had improve tolerance to exercise. She is tender with palpation. She tolerated light strengthening with theraband without ict trainer. She was unable to tolerate griping exercise. Physical Therapy Plan Frequency and Duration Frequency of Treatment 2x/Week Duration of Treatment 8 wks Plan of Care Start Date 04/18/19 Plan of Care End Date 06/13/19 Next Visit Focus/Plan Next Note Type Treatment Note Next Visit Plan Pt's ortho instructed her to increase number of reps, but not weight at this time.
--- NOTE | 2019-05-10 16:28 | PT.OTN ---
Current Diagnoses Medial epicondylitis, right elbow (05/10/19) Lateral epicondylitis, right elbow (05/10/19) Physical Therapy Treatment Note PT-OP-A Visit Information Start: 04/18/19 15:54 Freq: Status: Active Protocol: Document 05/10/19 15:15 HH (Rec: 05/10/19 16:28 HH [email or web address]) Out-Patient Physical Therapy Visit Information Visit Information Visit Type Treatment Note Visit Start Time 15:15 Visit Stop Time 16:00 Total Visit Minutes 45 Visit Number 7 Number of DIRECTOR CORRECTIONAL AGENCY Visits 0 PT-OP-B Current Condition Start: 04/18/19 15:54 Freq: Status: Active Protocol: Document 04/18/19 16:47 EA (Rec: 04/18/19 17:22 EA [id number]) Current Condition History of Current Condition Onset Date 07/2018 Current Complaints gripping and lifting difficulty due to right elbow pain History of Current Condition Patient reports multiple injection to left elbow years ago due to tennis elbow diagnosis. She reports this condition recurs again last July/2018 but got better on October 2018 after steroid shots. She reports on 2018 she injured her elbow at work by banging her elbow at the wall and made re- aggravated the condition. She went to see her doctor few days after the injury and diagnoses to have left tennis elbow. Prior Treatments and Tests X-rays recently with not fracture identified per patient No formal PT treament reports Future Testing and Treatments Planned Doctor's follow up next week. 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 Functional Limitations- Mobility/Gait Limited with hair combing, fixing upper undergarment Functional Limitations- Work/School Unable to comeback to work yet due to limitation Functional Limitations- Recreation/ Unable to perform cooking/ Hobbies baking Personal Factors Other Personal Factors That May Effect Chronicity of the condition Therapy/Recovery PT-OP-C Subjective Start: 04/18/19 15:54 Freq: Status: Active Protocol: Document 05/10/19 15:15 HH (Rec: 05/10/19 16:28 HH [email or web address]) OP-PT Subjective Patient Comments Patient Comments Pt states she feeling better this week. She states her biceps got very sore with twitching sensation for the past few days. PT-OP-F Manual Assessment Start: 04/18/19 15:54 Freq: Status: Active Protocol: Document 04/18/19 16:47 EA (Rec: 04/18/19 17:22 EA [id number]) Manual Assessments Soft Tissue Assessment Soft Tissue Mobility Assessment Tight wrist extensors, radial deviators, pronators, R Joint Mobility Assessment Joint Mobility Assessment Normal PT-OP-J Posture/Palpation/Skin Start: 04/18/19 15:54 Freq: Status: Active Protocol: Document 04/18/19 16:47 EA (Rec: 04/18/19 17:22 EA [id number]) Posture Evaluation Comments Posture Comments WFL. Elbow slightly bent in standing Skin Assessment Other Assessments Skin Assessment Comments No signs of acute inflammation or skin discoloration noted. PT-OP-K Range of Motion Start: 04/18/19 15:54 Freq: Status: Active Protocol: Document 04/18/19 16:47 EA (Rec: 04/18/19 17:22 EA [id number]) Elbow/Forearm Range of Motion Elbow/Forearm Right Active Elbow Flexion (degrees) 135 Elbow Extension (degrees) 0 Elbow Hyperextension 5 Pronation (degrees) 80 Supination (degrees) 90 Wrist Goniometric Range of Motion Wrist Left Wrist ROM WFL Yes Right Wrist ROM WFL No Flexion Active (degrees) 45 Extension Active (degrees) 30 Ulnar Deviation Active (degrees) 30 Radial Deviation Active (degrees) 30 PT-OP-L Special Tests Start: 04/18/19 15:54 Freq: Status: Active Protocol: Document 04/18/19 16:47 EA (Rec: 04/18/19 17:22 EA [id number]) Special Tests Wrist/Hand Special Tests Lateral Epicondylitis Extended Test Results + PT-OP-M Strength Start: 04/18/19 15:54 Freq: Status: Active Protocol: Document 04/18/19 16:47 EA (Rec: 04/18/19 17:22 EA [id number]) Elbow/Forearm Strength Elbow and Forearm Manual Muscle Testing Left Flexion (C6) 5 Normal Extension (C7) 5 Normal Pronation 5 Normal Supination 5 Normal Right Flexion (C6) 4 Good Extension (C7) 4 Good Supination 3+ Fair+ Wrist Strength Wrist Manual Muscle Testing Left Reason Not Measured WFL Right Flexion (C7) 4- Good- Extension (C6) 3+ Fair+ Ulnar Deviation 3+ Fair+ Radial Deviation 3+ Fair+ PT-OP-Q Treatments Start: 04/18/19 15:54 Freq: Status: Active Protocol: Document 05/10/19 15:15 HH (Rec: 05/10/19 16:28 HH [email or web address]) Therapeutic Exercises Sitting Exercises wrist flexion ext 2 Sitting Exercise Name concentric/ eccentric Equipment Used manual resistance Reps/Minutes 10 secs hold x 3 Comments full range wrist flexion ext Reps/Minutes 10 secs hold x 3 Comments isometrics at neutral Supination/Pronation Sitting Exercise Name Pronation/Supination Reps/Minutes 10 secs hold x 3 Comments isometrics at neutral Manual Therapy Treatment Soft Tissue Mobilization Common Extensor Tendon Body Location Common Extensor Tendon Mobilization Type Instrument Assisted Intensity/Depth Superficial Nerve Glides PNF D1 Body Position Standing Reps/Duration 10 mins Comments cues on pronation supination and flexion radial nerve glide Body Position Supine Reps/Duration 5 mins Comments with cervical lateral flexion PT-OP-R Modalities Start: 04/18/19 15:54 Freq: Status: Active Protocol: Document 05/08/19 16:25 GGD (Rec: 05/08/19 16:40 GGD [email or web address]) Hot Pack/Cold Pack Treatment Cold Pack Location R elbow Patient Position Sitting Treatment Duration (minutes) 10 Ultrasound Therapy Treatment Right Forearm Treatment Duration (minutes) 8 Patient Position Sitting Coupling Medium Ultrasound Gel Frequency Setting (mHz) 3 Mode Setting Pulsed Duty Cycle 50% Intensity Setting (w/cm2) 1.2 PT-OP-T Assessment and Plan Start: 04/18/19 15:54 Freq: Status: Active Protocol: Document 05/10/19 15:15 HH (Rec: 05/10/19 16:28 HH [email or web address]) Physical Therapy Assessment Assessment Summary Assessment Pt gary session very well with less pain during passive wrist flexion and making a invasive physician. Introduced PNF D1 pattern to facilitate nerve glide to her as HEP Physical Therapy Plan Next Visit Focus/Plan Next Note Type Treatment Note Next Visit Plan Pt's ortho instructed her to increase number of reps, but not weight at this time.
--- NOTE | 2019-05-15 16:06 | PT.OTN ---
Current Diagnoses Medial epicondylitis, right elbow (05/15/19) Lateral epicondylitis, right elbow (05/15/19) Physical Therapy Treatment Note PT-OP-A Visit Information Start: 04/18/19 15:54 Freq: Status: Active Protocol: Document 05/15/19 09:45 AMB (Rec: 05/15/19 13:01 AMB [email or web address]) Out-Patient Physical Therapy Visit Information Visit Information Visit Type Treatment Note Visit Start Time 09:45 Visit Stop Time 10:30 Total Visit Minutes 45 Visit Number 8 Number of THIRD HAND Visits 0 PT-OP-B Current Condition Start: 04/18/19 15:54 Freq: Status: Active Protocol: Document 04/18/19 16:47 EA (Rec: 04/18/19 17:22 EA [id number]) Current Condition History of Current Condition Onset Date 07/2018 Current Complaints gripping and lifting difficulty due to right elbow pain History of Current Condition Patient reports multiple injection to left elbow years ago due to tennis elbow diagnosis. She reports this condition recurs again last July/2018 but got better on October 2018 after steroid shots. She reports on 2018 she injured her elbow at work by banging her elbow at the wall and made re- aggravated the condition. She went to see her doctor few days after the injury and diagnoses to have left tennis elbow. Prior Treatments and Tests X-rays recently with not fracture identified per patient No formal PT treament reports Future Testing and Treatments Planned Doctor's follow up next week. 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 Functional Limitations- Mobility/Gait Limited with hair combing, fixing upper undergarment Functional Limitations- Work/School Unable to comeback to work yet due to limitation Functional Limitations- Recreation/ Unable to perform cooking/ Hobbies baking Personal Factors Other Personal Factors That May Effect Chronicity of the condition Therapy/Recovery PT-OP-C Subjective Start: 04/18/19 15:54 Freq: Status: Active Protocol: Document 05/15/19 09:45 AMB (Rec: 05/15/19 13:01 AMB [email or web address]) OP-PT Subjective Patient Comments Patient Comments Pt comes to her appointment very upset and frustrated. She states I just want to cut off my arm, this is taking away my career. She has an TRACY on Tuesday scheduled, but is still dealing with this not being an established L&I claim yet. She woke up with bad pain at 3am, and reports pain was about 7/10 when she got up this morning, current pain 5/10 when not moving. PT-OP-F Manual Assessment Start: 04/18/19 15:54 Freq: Status: Active Protocol: Document 04/18/19 16:47 EA (Rec: 04/18/19 17:22 EA [id number]) Manual Assessments Soft Tissue Assessment Soft Tissue Mobility Assessment Tight wrist extensors, radial deviators, pronators, R Joint Mobility Assessment Joint Mobility Assessment Normal PT-OP-J Posture/Palpation/Skin Start: 04/18/19 15:54 Freq: Status: Active Protocol: Document 04/18/19 16:47 EA (Rec: 04/18/19 17:22 EA [id number]) Posture Evaluation Comments Posture Comments WFL. Elbow slightly bent in standing Skin Assessment Other Assessments Skin Assessment Comments No signs of acute inflammation or skin discoloration noted. PT-OP-K Range of Motion Start: 04/18/19 15:54 Freq: Status: Active Protocol: Document 04/18/19 16:47 EA (Rec: 04/18/19 17:22 EA [id number]) Elbow/Forearm Range of Motion Elbow/Forearm Right Active Elbow Flexion (degrees) 135 Elbow Extension (degrees) 0 Elbow Hyperextension 5 Pronation (degrees) 80 Supination (degrees) 90 Wrist Goniometric Range of Motion Wrist Left Wrist ROM WFL Yes Right Wrist ROM WFL No Flexion Active (degrees) 45 Extension Active (degrees) 30 Ulnar Deviation Active (degrees) 30 Radial Deviation Active (degrees) 30 PT-OP-L Special Tests Start: 04/18/19 15:54 Freq: Status: Active Protocol: Document 04/18/19 16:47 EA (Rec: 04/18/19 17:22 EA [id number]) Special Tests Wrist/Hand Special Tests Lateral Epicondylitis Extended Test Results + PT-OP-M Strength Start: 04/18/19 15:54 Freq: Status: Active Protocol: Document 04/18/19 16:47 EA (Rec: 04/18/19 17:22 EA [id number]) Elbow/Forearm Strength Elbow and Forearm Manual Muscle Testing Left Flexion (C6) 5 Normal Extension (C7) 5 Normal Pronation 5 Normal Supination 5 Normal Right Flexion (C6) 4 Good Extension (C7) 4 Good Supination 3+ Fair+ Wrist Strength Wrist Manual Muscle Testing Left Reason Not Measured WFL Right Flexion (C7) 4- Good- Extension (C6) 3+ Fair+ Ulnar Deviation 3+ Fair+ Radial Deviation 3+ Fair+ PT-OP-Q Treatments Start: 04/18/19 15:54 Freq: Status: Active Protocol: Document 05/15/19 09:45 AMB (Rec: 05/15/19 16:05 AMB [email or web address]) Therapeutic Exercises Sitting Exercises 2 Sitting Exercise Name wrist extensor stretch Reps/Minutes 30x2 1 Sitting Exercise Name wrist extension Resistance AROM Reps/Minutes 2x10 Supination/Pronation Sitting Exercise Name Pronation/Supination Reps/Minutes 10 secs hold x 3 Comments isometrics at neutral Manual Therapy Treatment Soft Tissue Mobilization Common Extensor Tendon Body Location Common Extensor Tendon Mobilization Type Myofascial Release Strumming Intensity/Depth Superficial Taping Lat Epicondylitis Body Location R Lat Epicondylitis Type of Tape Kinesio Tape PT-OP-R Modalities Start: 04/18/19 15:54 Freq: Status: Active Protocol: Document 05/15/19 09:45 AMB (Rec: 05/15/19 16:05 AMB [email or web address]) Ultrasound Therapy Treatment Right Forearm Treatment Duration (minutes) 8 Patient Position Sitting Coupling Medium Ultrasound Gel Frequency Setting (mHz) 3 Mode Setting Pulsed Duty Cycle 50% Intensity Setting (w/cm2) 1.2 PT-OP-T Assessment and Plan Start: 04/18/19 15:54 Freq: Status: Active Protocol: Document 05/15/19 09:45 AMB (Rec: 05/15/19 16:05 AMB [email or web address]) Physical Therapy Assessment Assessment Summary Assessment While pt had previously been stating she was feeling like she was getting better, today she came in very upset that she is not getting better yet. She did not report pain at rest by the end of the session . Significant education in pain management performed today. Physical Therapy Plan Next Visit Focus/Plan Next Note Type Treatment Note Next Visit Plan Check in with pt next visit, as this last visit was significantly different than prior visits
--- NOTE | 2019-05-17 10:30 | PT.OTN ---
Current Diagnoses Medial epicondylitis, right elbow (05/17/19) Lateral epicondylitis, right elbow (05/17/19) Physical Therapy Treatment Note PT-OP-A Visit Information Start: 04/18/19 15:54 Freq: Status: Active Protocol: Document 05/17/19 08:15 AMB (Rec: 05/17/19 10:30 AMB [email or web address]) Out-Patient Physical Therapy Visit Information Visit Information Visit Type Treatment Note Visit Start Time 09:45 Visit Stop Time 10:30 Total Visit Minutes 45 Visit Number 9 Number of DRUG INSPECTOR Visits 0 PT-OP-B Current Condition Start: 04/18/19 15:54 Freq: Status: Active Protocol: Document 04/18/19 16:47 EA (Rec: 04/18/19 17:22 EA [id number]) Current Condition History of Current Condition Onset Date 07/2018 Current Complaints gripping and lifting difficulty due to right elbow pain History of Current Condition Patient reports multiple injection to left elbow years ago due to tennis elbow diagnosis. She reports this condition recurs again last July/2018 but got better on October 2018 after steroid shots. She reports on 2018 she injured her elbow at work by banging her elbow at the wall and made re- aggravated the condition. She went to see her doctor few days after the injury and diagnoses to have left tennis elbow. Prior Treatments and Tests X-rays recently with not fracture identified per patient No formal PT treament reports Future Testing and Treatments Planned Doctor's follow up next week. 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 Functional Limitations- Mobility/Gait Limited with hair combing, fixing upper undergarment Functional Limitations- Work/School Unable to comeback to work yet due to limitation Functional Limitations- Recreation/ Unable to perform cooking/ Hobbies baking Personal Factors Other Personal Factors That May Effect Chronicity of the condition Therapy/Recovery PT-OP-C Subjective Start: 04/18/19 15:54 Freq: Status: Active Protocol: Document 05/17/19 08:15 AMB (Rec: 05/17/19 10:30 AMB [id number]) OP-PT Subjective Patient Comments Patient Comments Pt is doing better today, but states she has not done her exercises yet today because they hurt. PT-OP-F Manual Assessment Start: 04/18/19 15:54 Freq: Status: Active Protocol: Document 04/18/19 16:47 EA (Rec: 04/18/19 17:22 EA [id number]) Manual Assessments Soft Tissue Assessment Soft Tissue Mobility Assessment Tight wrist extensors, radial deviators, pronators, R Joint Mobility Assessment Joint Mobility Assessment Normal PT-OP-J Posture/Palpation/Skin Start: 04/18/19 15:54 Freq: Status: Active Protocol: Document 04/18/19 16:47 EA (Rec: 04/18/19 17:22 EA [id number]) Posture Evaluation Comments Posture Comments WFL. Elbow slightly bent in standing Skin Assessment Other Assessments Skin Assessment Comments No signs of acute inflammation or skin discoloration noted. PT-OP-K Range of Motion Start: 04/18/19 15:54 Freq: Status: Active Protocol: Document 04/18/19 16:47 EA (Rec: 04/18/19 17:22 EA [id number]) Elbow/Forearm Range of Motion Elbow/Forearm Right Active Elbow Flexion (degrees) 135 Elbow Extension (degrees) 0 Elbow Hyperextension 5 Pronation (degrees) 80 Supination (degrees) 90 Wrist Goniometric Range of Motion Wrist Left Wrist ROM WFL Yes Right Wrist ROM WFL No Flexion Active (degrees) 45 Extension Active (degrees) 30 Ulnar Deviation Active (degrees) 30 Radial Deviation Active (degrees) 30 PT-OP-L Special Tests Start: 04/18/19 15:54 Freq: Status: Active Protocol: Document 04/18/19 16:47 EA (Rec: 04/18/19 17:22 EA [id number]) Special Tests Wrist/Hand Special Tests Lateral Epicondylitis Extended Test Results + PT-OP-M Strength Start: 04/18/19 15:54 Freq: Status: Active Protocol: Document 04/18/19 16:47 EA (Rec: 04/18/19 17:22 EA [id number]) Elbow/Forearm Strength Elbow and Forearm Manual Muscle Testing Left Flexion (C6) 5 Normal Extension (C7) 5 Normal Pronation 5 Normal Supination 5 Normal Right Flexion (C6) 4 Good Extension (C7) 4 Good Supination 3+ Fair+ Wrist Strength Wrist Manual Muscle Testing Left Reason Not Measured WFL Right Flexion (C7) 4- Good- Extension (C6) 3+ Fair+ Ulnar Deviation 3+ Fair+ Radial Deviation 3+ Fair+ PT-OP-Q Treatments Start: 04/18/19 15:54 Freq: Status: Active Protocol: Document 05/17/19 08:15 AMB (Rec: 05/17/19 10:30 AMB [id number]) Therapeutic Exercises Sitting Exercises wrist flexion ext 2 Sitting Exercise Name concentric/ eccentric Equipment Used manual resistance Reps/Minutes 10 secs hold x 3 Comments full range wrist flexion ext Reps/Minutes 10 secs hold x 3 Comments isometrics at neutral 2 Sitting Exercise Name wrist extensor stretch Reps/Minutes 30x2 1 Sitting Exercise Name wrist extension Resistance AROM Reps/Minutes 2x10 Supination/Pronation Sitting Exercise Name Pronation/Supination Reps/Minutes 10 secs hold x 3 Comments isometrics at neutral Manual Therapy Treatment Soft Tissue Mobilization Common Extensor Tendon Body Location Common Extensor Tendon Taping Lat Epicondylitis Body Location R Lat Epicondylitis Type of Tape Kinesio Tape Nerve Glides PNF D1 Body Position Standing Reps/Duration 10 mins Comments cues on pronation supination and flexion PT-OP-R Modalities Start: 04/18/19 15:54 Freq: Status: Active Protocol: Document 05/17/19 08:15 AMB (Rec: 05/17/19 10:30 AMB [id number]) Ultrasound Therapy Treatment Right Forearm Treatment Duration (minutes) 8 Patient Position Sitting Coupling Medium Ultrasound Gel Frequency Setting (mHz) 3 Mode Setting Pulsed Duty Cycle 50% Intensity Setting (w/cm2) 1.2 PT-OP-T Assessment and Plan Start: 04/18/19 15:54 Freq: Status: Active Protocol: Document 05/17/19 08:15 AMB (Rec: 05/17/19 10:30 AMB [email or web address]) Physical Therapy Assessment Assessment Summary Assessment Pt had been trying to do her exercises 4-5x/day per her ortho surgeon, but advised her today, to do a few exercises at a time every hour to break them up more so that she can tolerate her daily activities without so much pain. Getting an TRACY Tuesday. 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
--- NOTE | 2019-05-21 12:01 | PT.OTN ---
Current Diagnoses Medial epicondylitis, right elbow (05/21/19) Lateral epicondylitis, right elbow (05/21/19) Physical Therapy Treatment Note PT-OP-A Visit Information Start: 04/18/19 15:54 Freq: Status: Active Protocol: Document 05/21/19 11:15 DCW (Rec: 05/21/19 12:01 DCW [id number]) Out-Patient Physical Therapy Visit Information Visit Information Visit Type Treatment Note Visit Start Time 11:15 Visit Stop Time 12:00 Total Visit Minutes 45 Visit Number 10 Number of PBX TECHNICIAN Visits 0 PT-OP-B Current Condition Start: 04/18/19 15:54 Freq: Status: Active Protocol: Document 04/18/19 16:47 EA (Rec: 04/18/19 17:22 EA [id number]) Current Condition History of Current Condition Onset Date 07/2018 Current Complaints gripping and lifting difficulty due to right elbow pain History of Current Condition Patient reports multiple injection to left elbow years ago due to tennis elbow diagnosis. She reports this condition recurs again last July/2018 but got better on October 2018 after steroid shots. She reports on 2018 she injured her elbow at work by banging her elbow at the wall and made re- aggravated the condition. She went to see her doctor few days after the injury and diagnoses to have left tennis elbow. Prior Treatments and Tests X-rays recently with not fracture identified per patient No formal PT treament reports Future Testing and Treatments Planned Doctor's follow up next week. 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 Functional Limitations- Mobility/Gait Limited with hair combing, fixing upper undergarment Functional Limitations- Work/School Unable to comeback to work yet due to limitation Functional Limitations- Recreation/ Unable to perform cooking/ Hobbies baking Personal Factors Other Personal Factors That May Effect Chronicity of the condition Therapy/Recovery PT-OP-C Subjective Start: 04/18/19 15:54 Freq: Status: Active Protocol: Document 05/21/19 11:15 DCW (Rec: 05/21/19 12:01 DCW [id number]) OP-PT Subjective Patient Comments Patient Comments Pt notes that following a longer car ride (>30 min), holding her arm with sustained elbow flexion results in a lot of stiffness and pain. 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 PT-OP-F Manual Assessment Start: 04/18/19 15:54 Freq: Status: Active Protocol: Document 04/18/19 16:47 EA (Rec: 04/18/19 17:22 EA [id number]) Manual Assessments Soft Tissue Assessment Soft Tissue Mobility Assessment Tight wrist extensors, radial deviators, pronators, R Joint Mobility Assessment Joint Mobility Assessment Normal PT-OP-J Posture/Palpation/Skin Start: 04/18/19 15:54 Freq: Status: Active Protocol: Document 04/18/19 16:47 EA (Rec: 04/18/19 17:22 EA [id number]) Posture Evaluation Comments Posture Comments WFL. Elbow slightly bent in standing Skin Assessment Other Assessments Skin Assessment Comments No signs of acute inflammation or skin discoloration noted. PT-OP-K Range of Motion Start: 04/18/19 15:54 Freq: Status: Active Protocol: Document 04/18/19 16:47 EA (Rec: 04/18/19 17:22 EA [id number]) Elbow/Forearm Range of Motion Elbow/Forearm Right Active Elbow Flexion (degrees) 135 Elbow Extension (degrees) 0 Elbow Hyperextension 5 Pronation (degrees) 80 Supination (degrees) 90 Wrist Goniometric Range of Motion Wrist Left Wrist ROM WFL Yes Right Wrist ROM WFL No Flexion Active (degrees) 45 Extension Active (degrees) 30 Ulnar Deviation Active (degrees) 30 Radial Deviation Active (degrees) 30 PT-OP-L Special Tests Start: 04/18/19 15:54 Freq: Status: Active Protocol: Document 04/18/19 16:47 EA (Rec: 04/18/19 17:22 EA [id number]) Special Tests Wrist/Hand Special Tests Lateral Epicondylitis Extended Test Results + PT-OP-M Strength Start: 04/18/19 15:54 Freq: Status: Active Protocol: Document 04/18/19 16:47 EA (Rec: 04/18/19 17:22 EA [id number]) Elbow/Forearm Strength Elbow and Forearm Manual Muscle Testing Left Flexion (C6) 5 Normal Extension (C7) 5 Normal Pronation 5 Normal Supination 5 Normal Right Flexion (C6) 4 Good Extension (C7) 4 Good Supination 3+ Fair+ Wrist Strength Wrist Manual Muscle Testing Left Reason Not Measured WFL Right Flexion (C7) 4- Good- Extension (C6) 3+ Fair+ Ulnar Deviation 3+ Fair+ Radial Deviation 3+ Fair+ PT-OP-Q Treatments Start: 04/18/19 15:54 Freq: Status: Active Protocol: Document 05/21/19 11:15 DCW (Rec: 05/21/19 12:01 DCW [id number]) Therapeutic Exercises Sitting Exercises wrist flexion ext 2 Sitting Exercise Name concentric/ eccentric Equipment Used manual resistance Reps/Minutes 10 secs hold x 3 Comments full range wrist flexion ext Reps/Minutes 10 secs hold x 3 Comments isometrics at neutral 2 Sitting Exercise Name wrist extensor stretch Reps/Minutes 30x2 1 Sitting Exercise Name wrist extension Resistance AROM Reps/Minutes 2x10 Supination/Pronation Sitting Exercise Name Pronation/Supination Reps/Minutes 10 secs hold x 3 Comments isometrics at neutral Manual Therapy Treatment Soft Tissue Mobilization Common Extensor Tendon Body Location Common Extensor Tendon Mobilization Type Cross-Friction Sustained Pressure Intensity/Depth Superficial Joint Mobilizations 1 Joint radioulnar Direction PAs Grade II Taping Lat Epicondylitis Body Location R Lat Epicondylitis Type of Tape Kinesio Tape PT-OP-R Modalities Start: 04/18/19 15:54 Freq: Status: Active Protocol: Document 05/21/19 11:15 DCW (Rec: 05/21/19 12:01 DCW [id number]) Hot Pack/Cold Pack Treatment Ice Massage Location R Lateral Epicondyle Patient Position Sitting Treatment Duration (minutes) 5 Ultrasound Therapy Treatment Right Forearm Treatment Duration (minutes) 8 Patient Position Sitting Coupling Medium Ultrasound Gel Frequency Setting (mHz) 3 Mode Setting Pulsed Duty Cycle 50% Intensity Setting (w/cm2) 1.2 PT-OP-T Assessment and Plan Start: 04/18/19 15:54 Freq: Status: Active Protocol: Document 05/21/19 11:15 DCW (Rec: 05/21/19 12:01 DCW [id number]) Physical Therapy Assessment Goals Four Impairment Impaired ROM Pattern Fitter Goal (LTG) Patient will reach full wrist AROM to enable patient perform hand task without limitation LTG Duration 4 wks Three Impairment Right elbow Pain 7/10 [facility] Goal (LTG) Patient will subjectively report pain score of 2/10 to enable patient perform home task that requires wrist motions without limitation. LTG Duration 5 wks Two Impairment QuickDash score 89/100 Pattern Fitter Goal (LTG) Patient will have quickDash score of <25/100 LTG Duration 5 wks One Impairment No HEP in place Pattern Fitter Goal (LTG) Patient will perform HEP safely and independently. 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
--- NOTE | 2019-05-23 12:01 | PT.OTN ---
Current Diagnoses Medial epicondylitis, right elbow (05/23/19) Lateral epicondylitis, right elbow (05/23/19) Physical Therapy Treatment Note PT-OP-A Visit Information Start: 04/18/19 15:54 Freq: Status: Active Protocol: Document 05/23/19 11:06 EA (Rec: 05/23/19 11:14 EA [id number]) Out-Patient Physical Therapy Visit Information Visit Information Visit Type Treatment Note Visit Start Time 10:30 Visit Stop Time 11:19 Total Visit Minutes 49 Visit Number 11 PT-OP-B Current Condition Start: 04/18/19 15:54 Freq: Status: Active Protocol: Document 04/18/19 16:47 EA (Rec: 04/18/19 17:22 EA [id number]) Current Condition History of Current Condition Onset Date 07/2018 Current Complaints gripping and lifting difficulty due to right elbow pain History of Current Condition Patient reports multiple injection to left elbow years ago due to tennis elbow diagnosis. She reports this condition recurs again last July/2018 but got better on October 2018 after steroid shots. She reports on 2018 she injured her elbow at work by banging her elbow at the wall and made re- aggravated the condition. She went to see her doctor few days after the injury and diagnoses to have left tennis elbow. Prior Treatments and Tests X-rays recently with not fracture identified per patient No formal PT treament reports Future Testing and Treatments Planned Doctor's follow up next week. 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 Functional Limitations- Mobility/Gait Limited with hair combing, fixing upper undergarment Functional Limitations- Work/School Unable to comeback to work yet due to limitation Functional Limitations- Recreation/ Unable to perform cooking/ Hobbies baking Personal Factors Other Personal Factors That May Effect Chronicity of the condition Therapy/Recovery PT-OP-C Subjective Start: 04/18/19 15:54 Freq: Status: Active Protocol: Document 05/23/19 11:06 EA (Rec: 05/23/19 11:14 EA [id number]) OP-PT Subjective Patient Comments Patient Comments Pt reports able to use right hand to shift gears when driving; states she has not been doing that in a long time . PT-OP-F Manual Assessment Start: 04/18/19 15:54 Freq: Status: Active Protocol: Document 04/18/19 16:47 EA (Rec: 04/18/19 17:22 EA [id number]) Manual Assessments Soft Tissue Assessment Soft Tissue Mobility Assessment Tight wrist extensors, radial deviators, pronators, R Joint Mobility Assessment Joint Mobility Assessment Normal PT-OP-J Posture/Palpation/Skin Start: 04/18/19 15:54 Freq: Status: Active Protocol: Document 04/18/19 16:47 EA (Rec: 04/18/19 17:22 EA [id number]) Posture Evaluation Comments Posture Comments WFL. Elbow slightly bent in standing Skin Assessment Other Assessments Skin Assessment Comments No signs of acute inflammation or skin discoloration noted. PT-OP-K Range of Motion Start: 04/18/19 15:54 Freq: Status: Active Protocol: Document 04/18/19 16:47 EA (Rec: 04/18/19 17:22 EA [id number]) Elbow/Forearm Range of Motion Elbow/Forearm Right Active Elbow Flexion (degrees) 135 Elbow Extension (degrees) 0 Elbow Hyperextension 5 Pronation (degrees) 80 Supination (degrees) 90 Wrist Goniometric Range of Motion Wrist Left Wrist ROM WFL Yes Right Wrist ROM WFL No Flexion Active (degrees) 45 Extension Active (degrees) 30 Ulnar Deviation Active (degrees) 30 Radial Deviation Active (degrees) 30 PT-OP-L Special Tests Start: 04/18/19 15:54 Freq: Status: Active Protocol: Document 04/18/19 16:47 EA (Rec: 04/18/19 17:22 EA [id number]) Special Tests Wrist/Hand Special Tests Lateral Epicondylitis Extended Test Results + PT-OP-M Strength Start: 04/18/19 15:54 Freq: Status: Active Protocol: Document 04/18/19 16:47 EA (Rec: 04/18/19 17:22 EA [id number]) Elbow/Forearm Strength Elbow and Forearm Manual Muscle Testing Left Flexion (C6) 5 Normal Extension (C7) 5 Normal Pronation 5 Normal Supination 5 Normal Right Flexion (C6) 4 Good Extension (C7) 4 Good Supination 3+ Fair+ Wrist Strength Wrist Manual Muscle Testing Left Reason Not Measured WFL Right Flexion (C7) 4- Good- Extension (C6) 3+ Fair+ Ulnar Deviation 3+ Fair+ Radial Deviation 3+ Fair+ PT-OP-Q Treatments Start: 04/18/19 15:54 Freq: Status: Active Protocol: Document 05/23/19 11:06 EA (Rec: 05/23/19 11:14 EA [id number]) Therapeutic Exercises Sitting Exercises wrist flexion ext 2 Sitting Exercise Name concentric/ eccentric Equipment Used manual resistance Reps/Minutes 10 secs hold x 3 Comments full range wrist flexion ext Reps/Minutes 10 secs hold x 3 Comments isometrics at neutral 4 Sitting Exercise Name Elbow flexion Reps/Minutes 2# x 12 reps Comments patient to stab elbow fo reduce discomfort 3 Sitting Exercise Name Wrist flexion Equipment Used 1-2 # Reps/Minutes x12 reps x 2 2 Sitting Exercise Name wrist extensor stretch Reps/Minutes 30x2 1 Sitting Exercise Name wrist extension Resistance AROM Reps/Minutes 2x10 Supination/Pronation Sitting Exercise Name Pronation/Supination Resistance 1-2# Reps/Minutes 10 secs hold x 2 Manual Therapy Treatment Soft Tissue Mobilization Common Extensor Tendon Body Location Common Extensor Tendon Mobilization Type Cross-Friction Sustained Pressure Intensity/Depth Superficial Joint Mobilizations 1 Joint radioulnar Direction PAs Grade II PT-OP-R Modalities Start: 04/18/19 15:54 Freq: Status: Active Protocol: Document 05/23/19 11:06 EA (Rec: 05/23/19 11:14 EA [id number]) Hot Pack/Cold Pack Treatment Cold Pack Location R elbow Patient Position Sitting Treatment Duration (minutes) 10 PT-OP-T Assessment and Plan Start: 04/18/19 15:54 Freq: Status: Active Protocol: Document 05/23/19 11:06 EA (Rec: 05/23/19 11:14 EA [id number]) Physical Therapy Assessment Assessment Summary Assessment Pt cont. to show improvement as resistance isotonic exercises is gradually tolerated except with wrist extension which patient refused to perform due to increased of pain. 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
--- NOTE | 2019-05-28 12:04 | PT.OTN ---
Current Diagnoses Medial epicondylitis, right elbow (05/28/19) Lateral epicondylitis, right elbow (05/28/19) Physical Therapy Treatment Note PT-OP-A Visit Information Start: 04/18/19 15:54 Freq: Status: Active Protocol: Document 05/28/19 11:15 DCW (Rec: 05/28/19 12:03 DCW [id number]) Out-Patient Physical Therapy Visit Information Visit Information Visit Type Treatment Note Visit Start Time 11:15 Visit Stop Time 12:00 Total Visit Minutes 45 Visit Number 12 Number of WINDOWS APPLICATION ADMINISTRATOR Visits 0 PT-OP-B Current Condition Start: 04/18/19 15:54 Freq: Status: Active Protocol: Document 04/18/19 16:47 EA (Rec: 04/18/19 17:22 EA [id number]) Current Condition History of Current Condition Onset Date 07/2018 Current Complaints gripping and lifting difficulty due to right elbow pain History of Current Condition Patient reports multiple injection to left elbow years ago due to tennis elbow diagnosis. She reports this condition recurs again last July/2018 but got better on October 2018 after steroid shots. She reports on 2018 she injured her elbow at work by banging her elbow at the wall and made re- aggravated the condition. She went to see her doctor few days after the injury and diagnoses to have left tennis elbow. Prior Treatments and Tests X-rays recently with not fracture identified per patient No formal PT treament reports Future Testing and Treatments Planned Doctor's follow up next week. 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 Functional Limitations- Mobility/Gait Limited with hair combing, fixing upper undergarment Functional Limitations- Work/School Unable to comeback to work yet due to limitation Functional Limitations- Recreation/ Unable to perform cooking/ Hobbies baking Personal Factors Other Personal Factors That May Effect Chronicity of the condition Therapy/Recovery PT-OP-C Subjective Start: 04/18/19 15:54 Freq: Status: Active Protocol: Document 05/28/19 11:15 DCW (Rec: 05/28/19 12:03 DCW [id number]) OP-PT Subjective Patient Comments Patient Comments Pt feels like it has plateaued recently, just not getting any better or worse at all, and is ready for the next jump forward in function. PT-OP-F Manual Assessment Start: 04/18/19 15:54 Freq: Status: Active Protocol: Document 04/18/19 16:47 EA (Rec: 04/18/19 17:22 EA [id number]) Manual Assessments Soft Tissue Assessment Soft Tissue Mobility Assessment Tight wrist extensors, radial deviators, pronators, R Joint Mobility Assessment Joint Mobility Assessment Normal PT-OP-J Posture/Palpation/Skin Start: 04/18/19 15:54 Freq: Status: Active Protocol: Document 04/18/19 16:47 EA (Rec: 04/18/19 17:22 EA [id number]) Posture Evaluation Comments Posture Comments WFL. Elbow slightly bent in standing Skin Assessment Other Assessments Skin Assessment Comments No signs of acute inflammation or skin discoloration noted. PT-OP-K Range of Motion Start: 04/18/19 15:54 Freq: Status: Active Protocol: Document 04/18/19 16:47 EA (Rec: 04/18/19 17:22 EA [id number]) Elbow/Forearm Range of Motion Elbow/Forearm Right Active Elbow Flexion (degrees) 135 Elbow Extension (degrees) 0 Elbow Hyperextension 5 Pronation (degrees) 80 Supination (degrees) 90 Wrist Goniometric Range of Motion Wrist Left Wrist ROM WFL Yes Right Wrist ROM WFL No Flexion Active (degrees) 45 Extension Active (degrees) 30 Ulnar Deviation Active (degrees) 30 Radial Deviation Active (degrees) 30 PT-OP-L Special Tests Start: 04/18/19 15:54 Freq: Status: Active Protocol: Document 04/18/19 16:47 EA (Rec: 04/18/19 17:22 EA [id number]) Special Tests Wrist/Hand Special Tests Lateral Epicondylitis Extended Test Results + PT-OP-M Strength Start: 04/18/19 15:54 Freq: Status: Active Protocol: Document 04/18/19 16:47 EA (Rec: 04/18/19 17:22 EA [id number]) Elbow/Forearm Strength Elbow and Forearm Manual Muscle Testing Left Flexion (C6) 5 Normal Extension (C7) 5 Normal Pronation 5 Normal Supination 5 Normal Right Flexion (C6) 4 Good Extension (C7) 4 Good Supination 3+ Fair+ Wrist Strength Wrist Manual Muscle Testing Left Reason Not Measured WFL Right Flexion (C7) 4- Good- Extension (C6) 3+ Fair+ Ulnar Deviation 3+ Fair+ Radial Deviation 3+ Fair+ PT-OP-Q Treatments Start: 04/18/19 15:54 Freq: Status: Active Protocol: Document 05/28/19 11:15 DCW (Rec: 05/28/19 12:03 DCW [id number]) Therapeutic Exercises Sitting Exercises wrist flexion ext 2 Sitting Exercise Name concentric/ eccentric Equipment Used manual resistance Reps/Minutes 10 secs hold x 3 Comments full range wrist flexion ext Reps/Minutes 10 secs hold x 3 Comments isometrics at neutral Manual Therapy Treatment Soft Tissue Mobilization Common Extensor Tendon Body Location Common Extensor Tendon Mobilization Type Cross-Friction Sustained Pressure Intensity/Depth Superficial Joint Mobilizations 1 Joint radioulnar Direction PAs Grade II Taping Lat Epicondylitis Body Location R Lat Epicondylitis Type of Tape Kinesio Tape PT-OP-R Modalities Start: 04/18/19 15:54 Freq: Status: Active Protocol: Document 05/28/19 11:15 DCW (Rec: 05/28/19 12:03 DCW [id number]) Hot Pack/Cold Pack Treatment Ice Massage Location R Lateral Epicondyle Patient Position Sitting Treatment Duration (minutes) 5 Ultrasound Therapy Treatment Right Forearm Treatment Duration (minutes) 8 Patient Position Sitting Coupling Medium Ultrasound Gel Frequency Setting (mHz) 3 Mode Setting Pulsed Duty Cycle 50% Intensity Setting (w/cm2) 1.2 PT-OP-T Assessment and Plan Start: 04/18/19 15:54 Freq: Status: Active Protocol: Document 05/28/19 11:15 DCW (Rec: 05/28/19 12:03 DCW [id number]) Physical Therapy Assessment Goals Four Impairment Impaired ROM Market Development Manager Goal (LTG) Patient will reach full wrist AROM to enable patient perform hand task without limitation LTG Duration 4 wks Three Impairment Right elbow Pain 7/10 Market Development Manager Goal (LTG) Patient will subjectively report pain score of 2/10 to enable patient perform home task that requires wrist motions without limitation. LTG Duration 5 wks Two Impairment QuickDash score 89/100 [facility] Goal (LTG) Patient will have quickDash score of <25/100 LTG Duration 5 wks One Impairment No HEP in place [facility] Goal (LTG) Patient will perform HEP safely and independently. LTG Duration 3 wks Assessment Summary Assessment Pt much more tender to isotonic resistance today, becoming obviously frustrated at her lack of progress. 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
--- NOTE | 2019-06-05 11:16 | PT.OTN ---
Current Diagnoses Medial epicondylitis, right elbow (06/05/19) Lateral epicondylitis, right elbow (06/05/19) Physical Therapy Treatment Note PT-OP-A Visit Information Start: 04/18/19 15:54 Freq: Status: Active Protocol: Document 06/05/19 10:30 DCW (Rec: 06/05/19 11:15 DCW [id number]) Out-Patient Physical Therapy Visit Information Visit Information Visit Type Treatment Note Visit Start Time 10:30 Visit Stop Time 11:15 Total Visit Minutes 45 Visit Number 13 Number of CHAIN PEGGER Visits 0 PT-OP-B Current Condition Start: 04/18/19 15:54 Freq: Status: Active Protocol: Document 04/18/19 16:47 EA (Rec: 04/18/19 17:22 EA [id number]) Current Condition History of Current Condition Onset Date 07/2018 Current Complaints gripping and lifting difficulty due to right elbow pain History of Current Condition Patient reports multiple injection to left elbow years ago due to tennis elbow diagnosis. She reports this condition recurs again last July/2018 but got better on October 2018 after steroid shots. She reports on 2018 she injured her elbow at work by banging her elbow at the wall and made re- aggravated the condition. She went to see her doctor few days after the injury and diagnoses to have left tennis elbow. Prior Treatments and Tests X-rays recently with not fracture identified per patient No formal PT treament reports Future Testing and Treatments Planned Doctor's follow up next week. 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 Functional Limitations- Mobility/Gait Limited with hair combing, fixing upper undergarment Functional Limitations- Work/School Unable to comeback to work yet due to limitation Functional Limitations- Recreation/ Unable to perform cooking/ Hobbies baking Personal Factors Other Personal Factors That May Effect Chronicity of the condition Therapy/Recovery PT-OP-C Subjective Start: 04/18/19 15:54 Freq: Status: Active Protocol: Document 06/05/19 10:30 DCW (Rec: 06/05/19 11:15 DCW [id number]) OP-PT Subjective Patient Comments Patient Comments I had a really good three days, but then I spent 4 hours doing stuff on the computer, and now it's really fired up. I've been up since three this morning because it just wouldn 't stop hurting. PT-OP-F Manual Assessment Start: 04/18/19 15:54 Freq: Status: Active Protocol: Document 04/18/19 16:47 EA (Rec: 04/18/19 17:22 EA [id number]) Manual Assessments Soft Tissue Assessment Soft Tissue Mobility Assessment Tight wrist extensors, radial deviators, pronators, R Joint Mobility Assessment Joint Mobility Assessment Normal PT-OP-J Posture/Palpation/Skin Start: 04/18/19 15:54 Freq: Status: Active Protocol: Document 04/18/19 16:47 EA (Rec: 04/18/19 17:22 EA [id number]) Posture Evaluation Comments Posture Comments WFL. Elbow slightly bent in standing Skin Assessment Other Assessments Skin Assessment Comments No signs of acute inflammation or skin discoloration noted. PT-OP-K Range of Motion Start: 04/18/19 15:54 Freq: Status: Active Protocol: Document 04/18/19 16:47 EA (Rec: 04/18/19 17:22 EA [id number]) Elbow/Forearm Range of Motion Elbow/Forearm Right Active Elbow Flexion (degrees) 135 Elbow Extension (degrees) 0 Elbow Hyperextension 5 Pronation (degrees) 80 Supination (degrees) 90 Wrist Goniometric Range of Motion Wrist Left Wrist ROM WFL Yes Right Wrist ROM WFL No Flexion Active (degrees) 45 Extension Active (degrees) 30 Ulnar Deviation Active (degrees) 30 Radial Deviation Active (degrees) 30 PT-OP-L Special Tests Start: 04/18/19 15:54 Freq: Status: Active Protocol: Document 04/18/19 16:47 EA (Rec: 04/18/19 17:22 EA [id number]) Special Tests Wrist/Hand Special Tests Lateral Epicondylitis Extended Test Results + PT-OP-M Strength Start: 04/18/19 15:54 Freq: Status: Active Protocol: Document 04/18/19 16:47 EA (Rec: 04/18/19 17:22 EA [id number]) Elbow/Forearm Strength Elbow and Forearm Manual Muscle Testing Left Flexion (C6) 5 Normal Extension (C7) 5 Normal Pronation 5 Normal Supination 5 Normal Right Flexion (C6) 4 Good Extension (C7) 4 Good Supination 3+ Fair+ Wrist Strength Wrist Manual Muscle Testing Left Reason Not Measured WFL Right Flexion (C7) 4- Good- Extension (C6) 3+ Fair+ Ulnar Deviation 3+ Fair+ Radial Deviation 3+ Fair+ PT-OP-Q Treatments Start: 04/18/19 15:54 Freq: Status: Active Protocol: Document 06/05/19 10:30 DCW (Rec: 06/05/19 11:15 DCW [id number]) Therapeutic Exercises Sitting Exercises wrist flexion ext 2 Sitting Exercise Name concentric/ eccentric Equipment Used manual resistance Reps/Minutes 10 secs hold x 3 Comments full range wrist flexion ext Reps/Minutes 10 secs hold x 3 Comments isometrics at neutral Manual Therapy Treatment Soft Tissue Mobilization Common Extensor Tendon Body Location Common Extensor Tendon Mobilization Type Cross-Friction,Sustained Pressure Intensity/Depth Superficial Joint Mobilizations 1 Joint radioulnar Direction PAs Grade II PT-OP-R Modalities Start: 04/18/19 15:54 Freq: Status: Active Protocol: Document 06/05/19 10:30 DCW (Rec: 06/05/19 11:15 DCW [id number]) Hot Pack/Cold Pack Treatment Ice Massage Location R Lateral Epicondyle Patient Position Sitting Treatment Duration (minutes) 5 Ultrasound Therapy Treatment Right Forearm Treatment Duration (minutes) 8 Patient Position Sitting Coupling Medium Ultrasound Gel Frequency Setting (mHz) 3 Mode Setting Pulsed Duty Cycle 50% Intensity Setting (w/cm2) 1.2 PT-OP-T Assessment and Plan Start: 04/18/19 15:54 Freq: Status: Active Protocol: Document 06/05/19 10:30 DCW (Rec: 06/05/19 11:15 DCW [id number]) Physical Therapy Assessment Goals Four Impairment Impaired ROM Sorter Lumber Straightener Goal (LTG) Patient will reach full wrist AROM to enable patient perform hand task without limitation LTG Duration 4 wks Three Impairment Right elbow Pain 7/10 Sorter Lumber Straightener Goal (LTG) Patient will subjectively report pain score of 2/10 to enable patient perform home task that requires wrist motions without limitation. LTG Duration 5 wks Two Impairment QuickDash score 89/100 Correction Goal (LTG) Patient will have quickDash score of <25/100 LTG Duration 5 wks One Impairment No HEP in place Sorter Lumber Straightener Goal (LTG) Patient will perform HEP safely and independently. LTG Duration 3 wks Assessment Summary Assessment Pt is showing progress, less tenderness with isotonic resistance. Discussed importance of proper ergonomics and posture when sitting at her computer, pt admits that she sits at a desk that is too high and with her elbows out to the side. 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
--- NOTE | 2019-06-07 11:30 | PT.OTN ---
Current Diagnoses Medial epicondylitis, right elbow (06/07/19) Lateral epicondylitis, right elbow (06/07/19) Physical Therapy Treatment Note PT-OP-A Visit Information Start: 04/18/19 15:54 Freq: Status: Active Protocol: Document 06/07/19 10:30 DCW (Rec: 06/07/19 11:30 DCW [id number]) Out-Patient Physical Therapy Visit Information Visit Information Visit Type Treatment Note Visit Start Time 10:30 Visit Stop Time 11:15 Total Visit Minutes 45 Visit Number 14 Number of IS TECHNICIAN Visits 0 PT-OP-B Current Condition Start: 04/18/19 15:54 Freq: Status: Active Protocol: Document 04/18/19 16:47 EA (Rec: 04/18/19 17:22 EA [id number]) Current Condition History of Current Condition Onset Date 07/2018 Current Complaints gripping and lifting difficulty due to right elbow pain History of Current Condition Patient reports multiple injection to left elbow years ago due to tennis elbow diagnosis. She reports this condition recurs again last July/2018 but got better on October 2018 after steroid shots. She reports on 2018 she injured her elbow at work by banging her elbow at the wall and made re- aggravated the condition. She went to see her doctor few days after the injury and diagnoses to have left tennis elbow. Prior Treatments and Tests X-rays recently with not fracture identified per patient No formal PT treament reports Future Testing and Treatments Planned Doctor's follow up next week. 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 Functional Limitations- Mobility/Gait Limited with hair combing, fixing upper undergarment Functional Limitations- Work/School Unable to comeback to work yet due to limitation Functional Limitations- Recreation/ Unable to perform cooking/ Hobbies baking Personal Factors Other Personal Factors That May Effect Chronicity of the condition Therapy/Recovery PT-OP-C Subjective Start: 04/18/19 15:54 Freq: Status: Active Protocol: Document 06/07/19 10:30 DCW (Rec: 06/07/19 11:30 DCW [id number]) OP-PT Subjective Patient Comments Patient Comments Pt recently saw Dr Huber, who reportedly told her she seems to be getting worse, changed her lifting restriction back to 1#, and recommended a Tenex procedure. Pt is very upset by this, feels like she is going to lose her job if she cannot lift more than one pound, and PT-OP-F Manual Assessment Start: 04/18/19 15:54 Freq: Status: Active Protocol: Document 04/18/19 16:47 EA (Rec: 04/18/19 17:22 EA [id number]) Manual Assessments Soft Tissue Assessment Soft Tissue Mobility Assessment Tight wrist extensors, radial deviators, pronators, R Joint Mobility Assessment Joint Mobility Assessment Normal PT-OP-J Posture/Palpation/Skin Start: 04/18/19 15:54 Freq: Status: Active Protocol: Document 04/18/19 16:47 EA (Rec: 04/18/19 17:22 EA [id number]) Posture Evaluation Comments Posture Comments WFL. Elbow slightly bent in standing Skin Assessment Other Assessments Skin Assessment Comments No signs of acute inflammation or skin discoloration noted. PT-OP-K Range of Motion Start: 04/18/19 15:54 Freq: Status: Active Protocol: Document 04/18/19 16:47 EA (Rec: 04/18/19 17:22 EA [id number]) Elbow/Forearm Range of Motion Elbow/Forearm Right Active Elbow Flexion (degrees) 135 Elbow Extension (degrees) 0 Elbow Hyperextension 5 Pronation (degrees) 80 Supination (degrees) 90 Wrist Goniometric Range of Motion Wrist Left Wrist ROM WFL Yes Right Wrist ROM WFL No Flexion Active (degrees) 45 Extension Active (degrees) 30 Ulnar Deviation Active (degrees) 30 Radial Deviation Active (degrees) 30 PT-OP-L Special Tests Start: 04/18/19 15:54 Freq: Status: Active Protocol: Document 04/18/19 16:47 EA (Rec: 04/18/19 17:22 EA [id number]) Special Tests Wrist/Hand Special Tests Lateral Epicondylitis Extended Test Results + PT-OP-M Strength Start: 04/18/19 15:54 Freq: Status: Active Protocol: Document 04/18/19 16:47 EA (Rec: 04/18/19 17:22 EA [id number]) Elbow/Forearm Strength Elbow and Forearm Manual Muscle Testing Left Flexion (C6) 5 Normal Extension (C7) 5 Normal Pronation 5 Normal Supination 5 Normal Right Flexion (C6) 4 Good Extension (C7) 4 Good Supination 3+ Fair+ Wrist Strength Wrist Manual Muscle Testing Left Reason Not Measured WFL Right Flexion (C7) 4- Good- Extension (C6) 3+ Fair+ Ulnar Deviation 3+ Fair+ Radial Deviation 3+ Fair+ PT-OP-Q Treatments Start: 04/18/19 15:54 Freq: Status: Active Protocol: Document 06/07/19 10:30 DCW (Rec: 06/07/19 11:30 DCW [id number]) Therapeutic Exercises Sitting Exercises Welfare Officer Strengthening Sitting Exercise Name Flexibar (Red) Comments Twisting, Flexing Manual Therapy Treatment Soft Tissue Mobilization Common Extensor Tendon Body Location Common Extensor Tendon Mobilization Type Cross-Friction,Sustained Pressure Intensity/Depth Superficial Joint Mobilizations 1 Joint radioulnar Direction PAs Grade II Self-Care/Home Management Treatment Activities Self-Care/Home Management Activities Occupational lifting assessment - Floor to waist lifting (10#), Carrying (5#), Waist to shoulder lifting (1#) PT-OP-R Modalities Start: 04/18/19 15:54 Freq: Status: Active Protocol: Document 06/07/19 10:30 DCW (Rec: 06/07/19 11:30 DCW [id number]) Hot Pack/Cold Pack Treatment Ice Massage Location R Lateral Epicondyle Patient Position Sitting Treatment Duration (minutes) 5 PT-OP-T Assessment and Plan Start: 04/18/19 15:54 Freq: Status: Active Protocol: Document 06/07/19 10:30 DCW (Rec: 06/07/19 11:30 DCW [id number]) Physical Therapy Assessment Goals Four Impairment Impaired ROM Mcfp Goal (LTG) Patient will reach full wrist AROM to enable patient perform hand task without limitation LTG Duration 4 wks Three Impairment Right elbow Pain 7/10 Furniture Maker Goal (LTG) Patient will subjectively report pain score of 2/10 to enable patient perform home task that requires wrist motions without limitation. LTG Duration 5 wks Two Impairment QuickDash score 89/100 Furniture Maker Goal (LTG) Patient will have quickDash score of <25/100 LTG Duration 5 wks One Impairment No HEP in place Furniture Maker Goal (LTG) Patient will perform HEP safely and independently. LTG Duration 3 wks Assessment Summary Assessment Pt frustrated by new lifting restrictions, felt that they were too restrictive and she would not be able to go back to her job. Requested to attempt to try lifting more weight so that she could request Dr Huber to relax her restrictions a little bit. 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
--- NOTE | 2019-06-11 11:16 | PT.OTN ---
Current Diagnoses Medial epicondylitis, right elbow (06/11/19) Lateral epicondylitis, right elbow (06/11/19) Physical Therapy Treatment Note PT-OP-A Visit Information Start: 04/18/19 15:54 Freq: Status: Active Protocol: Document 06/11/19 10:30 DCW (Rec: 06/11/19 11:16 DCW [id number]) Out-Patient Physical Therapy Visit Information Visit Information Visit Type Treatment Note Visit Start Time 10:30 Visit Stop Time 11:15 Total Visit Minutes 45 Visit Number 15 Number of DATA REPORTING ANALYST Visits 0 PT-OP-B Current Condition Start: 04/18/19 15:54 Freq: Status: Active Protocol: Document 04/18/19 16:47 EA (Rec: 04/18/19 17:22 EA [id number]) Current Condition History of Current Condition Onset Date 07/2018 Current Complaints gripping and lifting difficulty due to right elbow pain History of Current Condition Patient reports multiple injection to left elbow years ago due to tennis elbow diagnosis. She reports this condition recurs again last July/2018 but got better on October 2018 after steroid shots. She reports on 2018 she injured her elbow at work by banging her elbow at the wall and made re- aggravated the condition. She went to see her doctor few days after the injury and diagnoses to have left tennis elbow. Prior Treatments and Tests X-rays recently with not fracture identified per patient No formal PT treament reports Future Testing and Treatments Planned Doctor's follow up next week. 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 Functional Limitations- Mobility/Gait Limited with hair combing, fixing upper undergarment Functional Limitations- Work/School Unable to comeback to work yet due to limitation Functional Limitations- Recreation/ Unable to perform cooking/ Hobbies baking Personal Factors Other Personal Factors That May Effect Chronicity of the condition Therapy/Recovery PT-OP-C Subjective Start: 04/18/19 15:54 Freq: Status: Active Protocol: Document 06/11/19 10:30 DCW (Rec: 06/11/19 11:16 DCW [id number]) OP-PT Subjective Patient Comments Patient Comments Pt notes she can still make it mad, but it seems to recover more quickly than it used to. PT-OP-F Manual Assessment Start: 04/18/19 15:54 Freq: Status: Active Protocol: Document 04/18/19 16:47 EA (Rec: 04/18/19 17:22 EA [id number]) Manual Assessments Soft Tissue Assessment Soft Tissue Mobility Assessment Tight wrist extensors, radial deviators, pronators, R Joint Mobility Assessment Joint Mobility Assessment Normal PT-OP-J Posture/Palpation/Skin Start: 04/18/19 15:54 Freq: Status: Active Protocol: Document 04/18/19 16:47 EA (Rec: 04/18/19 17:22 EA [id number]) Posture Evaluation Comments Posture Comments WFL. Elbow slightly bent in standing Skin Assessment Other Assessments Skin Assessment Comments No signs of acute inflammation or skin discoloration noted. PT-OP-K Range of Motion Start: 04/18/19 15:54 Freq: Status: Active Protocol: Document 04/18/19 16:47 EA (Rec: 04/18/19 17:22 EA [id number]) Elbow/Forearm Range of Motion Elbow/Forearm Right Active Elbow Flexion (degrees) 135 Elbow Extension (degrees) 0 Elbow Hyperextension 5 Pronation (degrees) 80 Supination (degrees) 90 Wrist Goniometric Range of Motion Wrist Left Wrist ROM WFL Yes Right Wrist ROM WFL No Flexion Active (degrees) 45 Extension Active (degrees) 30 Ulnar Deviation Active (degrees) 30 Radial Deviation Active (degrees) 30 PT-OP-L Special Tests Start: 04/18/19 15:54 Freq: Status: Active Protocol: Document 04/18/19 16:47 EA (Rec: 04/18/19 17:22 EA [id number]) Special Tests Wrist/Hand Special Tests Lateral Epicondylitis Extended Test Results + PT-OP-M Strength Start: 04/18/19 15:54 Freq: Status: Active Protocol: Document 04/18/19 16:47 EA (Rec: 04/18/19 17:22 EA [id number]) Elbow/Forearm Strength Elbow and Forearm Manual Muscle Testing Left Flexion (C6) 5 Normal Extension (C7) 5 Normal Pronation 5 Normal Supination 5 Normal Right Flexion (C6) 4 Good Extension (C7) 4 Good Supination 3+ Fair+ Wrist Strength Wrist Manual Muscle Testing Left Reason Not Measured WFL Right Flexion (C7) 4- Good- Extension (C6) 3+ Fair+ Ulnar Deviation 3+ Fair+ Radial Deviation 3+ Fair+ PT-OP-Q Treatments Start: 04/18/19 15:54 Freq: Status: Active Protocol: Document 06/11/19 10:30 DCW (Rec: 06/11/19 11:16 DCW [id number]) Therapeutic Exercises Sitting Exercises 1 Sitting Exercise Name 4-way wrist strengthening Side right Resistance Lv 1 Equipment Used T-band Photogrammetric Tech Strengthening Sitting Exercise Name Flexibar (Red) Comments Twisting, Flexing Supination/Pronation Sitting Exercise Name Pronation/Supination Resistance Hammer Manual Therapy Treatment Soft Tissue Mobilization Common Extensor Tendon Body Location Common Extensor Tendon Mobilization Type Cross-Friction,Sustained Pressure Intensity/Depth Superficial Joint Mobilizations 1 Joint radioulnar Direction PAs Grade II PT-OP-R Modalities Start: 04/18/19 15:54 Freq: Status: Active Protocol: Document 06/11/19 10:30 DCW (Rec: 06/11/19 11:16 DCW [id number]) Hot Pack/Cold Pack Treatment Ice Massage Location R Lateral Epicondyle Patient Position Sitting Treatment Duration (minutes) 5 Ultrasound Therapy Treatment Right Forearm Treatment Duration (minutes) 8 Patient Position Sitting Coupling Medium Ultrasound Gel Frequency Setting (mHz) 3 Mode Setting Pulsed Duty Cycle 50% Intensity Setting (w/cm2) 1.2 PT-OP-T Assessment and Plan Start: 04/18/19 15:54 Freq: Status: Active Protocol: Document 06/11/19 10:30 DCW (Rec: 06/11/19 11:16 DCW [id number]) Physical Therapy Assessment Goals Four Impairment Impaired ROM Retirement Goal (LTG) Patient will reach full wrist AROM to enable patient perform hand task without limitation LTG Duration 4 wks Three Impairment Right elbow Pain 7/10 Customer Data Technician Goal (LTG) Patient will subjectively report pain score of 2/10 to enable patient perform home task that requires wrist motions without limitation. LTG Duration 5 wks Two Impairment QuickDash score 89/100 Retirement Goal (LTG) Patient will have quickDash score of <25/100 LTG Duration 5 wks One Impairment No HEP in place Retirement Goal (LTG) Patient will perform HEP safely and independently. LTG Duration 3 wks Assessment Summary Assessment Pt tolerated addition of light strengthening exercises well, no increased pain. Physical Therapy Plan Frequency and Duration Frequency of Treatment 2x/Week Duration of Treatment 8 wks Plan of Care Start Date 04/18/19 Plan of Care End Date 06/13/19 Next Visit Focus/Plan Next Note Type Treatment Note Next Visit Plan Progress isometrics and stretching as tolerance allows , continue to improve supervisor grove.
--- NOTE | 2019-06-22 15:27 | PT.OTN ---
Current Diagnoses Medial epicondylitis, right elbow (06/22/19) Lateral epicondylitis, right elbow (06/22/19) Physical Therapy Treatment Note PT-OP-A Visit Information Start: 04/18/19 15:54 Freq: Status: Active Protocol: Document 06/22/19 14:32 HH (Rec: 06/22/19 15:27 HH [email or web address]) Out-Patient Physical Therapy Visit Information Visit Information Visit Type Treatment Note Visit Start Time 14:32 Visit Stop Time 15:18 Total Visit Minutes 46 Visit Number 16 Number of BODY WIRER Visits 0 PT-OP-B Current Condition Start: 04/18/19 15:54 Freq: Status: Active Protocol: Document 04/18/19 16:47 EA (Rec: 04/18/19 17:22 EA [id number]) Current Condition History of Current Condition Onset Date 07/2018 Current Complaints gripping and lifting difficulty due to right elbow pain History of Current Condition Patient reports multiple injection to left elbow years ago due to tennis elbow diagnosis. She reports this condition recurs again last July/2018 but got better on October 2018 after steroid shots. She reports on 2018 she injured her elbow at work by banging her elbow at the wall and made re- aggravated the condition. She went to see her doctor few days after the injury and diagnoses to have left tennis elbow. Prior Treatments and Tests X-rays recently with not fracture identified per patient No formal PT treament reports Future Testing and Treatments Planned Doctor's follow up next week. 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 Functional Limitations- Mobility/Gait Limited with hair combing, fixing upper undergarment Functional Limitations- Work/School Unable to comeback to work yet due to limitation Functional Limitations- Recreation/ Unable to perform cooking/ Hobbies baking Personal Factors Other Personal Factors That May Effect Chronicity of the condition Therapy/Recovery PT-OP-C Subjective Start: 04/18/19 15:54 Freq: Status: Active Protocol: Document 06/22/19 14:32 HH (Rec: 06/22/19 15:27 HH [email or web address]) OP-PT Subjective Patient Comments Patient Comments Im the same and i decided to do sx [facility] tx with Dr. Grande next 06/27 that he found out i have bone spur and scar tissue on my elbow and there will be no PT for 3 weeks so i could start PT from 07/17. Patient Reported Progress Same PT-OP-F Manual Assessment Start: 04/18/19 15:54 Freq: Status: Active Protocol: Document 04/18/19 16:47 EA (Rec: 04/18/19 17:22 EA [id number]) Manual Assessments Soft Tissue Assessment Soft Tissue Mobility Assessment Tight wrist extensors, radial deviators, pronators, R Joint Mobility Assessment Joint Mobility Assessment Normal PT-OP-J Posture/Palpation/Skin Start: 04/18/19 15:54 Freq: Status: Active Protocol: Document 04/18/19 16:47 EA (Rec: 04/18/19 17:22 EA [id number]) Posture Evaluation Comments Posture Comments WFL. Elbow slightly bent in standing Skin Assessment Other Assessments Skin Assessment Comments No signs of acute inflammation or skin discoloration noted. PT-OP-K Range of Motion Start: 04/18/19 15:54 Freq: Status: Active Protocol: Document 04/18/19 16:47 EA (Rec: 04/18/19 17:22 EA [id number]) Elbow/Forearm Range of Motion Elbow/Forearm Right Active Elbow Flexion (degrees) 135 Elbow Extension (degrees) 0 Elbow Hyperextension 5 Pronation (degrees) 80 Supination (degrees) 90 Wrist Goniometric Range of Motion Wrist Left Wrist ROM WFL Yes Right Wrist ROM WFL No Flexion Active (degrees) 45 Extension Active (degrees) 30 Ulnar Deviation Active (degrees) 30 Radial Deviation Active (degrees) 30 PT-OP-L Special Tests Start: 04/18/19 15:54 Freq: Status: Active Protocol: Document 04/18/19 16:47 EA (Rec: 04/18/19 17:22 EA [id number]) Special Tests Wrist/Hand Special Tests Lateral Epicondylitis Extended Test Results + PT-OP-M Strength Start: 04/18/19 15:54 Freq: Status: Active Protocol: Document 07/17/19 16:47 EA (Rec: 04/18/19 17:22 EA [id number]) Elbow/Forearm Strength Elbow and Forearm Manual Muscle Testing Left Flexion (C6) 5 Normal Extension (C7) 5 Normal Pronation 5 Normal Supination 5 Normal Right Flexion (C6) 4 Good Extension (C7) 4 Good Supination 3+ Fair+ Wrist Strength Wrist Manual Muscle Testing Left Reason Not Measured WFL Right Flexion (C7) 4- Good- Extension (C6) 3+ Fair+ Ulnar Deviation 3+ Fair+ Radial Deviation 3+ Fair+ PT-OP-Q Treatments Start: 04/18/19 15:54 Freq: Status: Active Protocol: Document 06/22/19 14:32 HH (Rec: 06/22/19 15:27 HH [email or web address]) Therapeutic Exercises Sitting Exercises active pron and sup Sitting Exercise Name with shoulder ER and IR Side bilateral Reps/Minutes 4 mins 1 Sitting Exercise Name 4-way wrist strengthening Side right Resistance Lv 1 Equipment Used T-band Delivery Rn Strengthening Sitting Exercise Name Flexibar (Red) Reps/Minutes 10 secs holdx 5 for each motion Comments Twisting, Flexing Supination/Pronation Sitting Exercise Name Pronation/Supination Resistance Hammer Reps/Minutes 6 circles x 5 Manual Therapy Treatment Soft Tissue Mobilization Common Extensor Tendon Body Location Common Extensor Tendon Mobilization Type Cross-Friction,Sustained Pressure Intensity/Depth Superficial PT-OP-R Modalities Start: 04/18/19 15:54 Freq: Status: Active Protocol: Document 06/22/19 14:32 HH (Rec: 06/22/19 15:27 [email or web address]) Ultrasound Therapy Treatment Right Forearm Treatment Duration (minutes) 8 Patient Position Sitting Coupling Medium Ultrasound Gel Frequency Setting (mHz) 3 Mode Setting Pulsed Duty Cycle 50% Intensity Setting (w/cm2) 1.2 PT-OP-T Assessment and Plan Start: 04/18/19 15:54 Freq: Status: Active Protocol: Document 06/22/19 14:32 HH (Rec: 06/22/19 15:27 [email or web address]) Physical Therapy Assessment Goals Four Impairment Impaired ROM Fpc Goal (LTG) Patient will reach full wrist AROM to enable patient perform hand task without limitation LTG Duration 4 wks Three Impairment Right elbow Pain 7/10 Fpc Goal (LTG) Patient will subjectively report pain score of 2/10 to enable patient perform home task that requires wrist motions without limitation. LTG Duration 5 wks Two Impairment QuickDash score 89/100 Fpc Goal (LTG) Patient will have quickDash score of <25/100 LTG Duration 5 wks One Impairment No HEP in place Fpc Goal (LTG) Patient will perform HEP safely and independently. LTG Duration 3 wks Assessment Summary Assessment Pt gary ligth strengthening ex with c/o soreness only. Pt will receive [facility] Tx next tue and no PT until 07/17 . Post op guidelines is in the chart Physical Therapy Plan Next Visit Focus/Plan Next Note Type Re-Evaluation Next Visit Plan follow post op guidelines at 3 weeks: being stretching and eccentric ex no lifting objects with arm/ hand >5 pounds for 6 weeks may gradually resume normal use of arm/hand at 6 weeks ast ol and subject to physician approval
--- NOTE | 2019-07-17 16:54 | PT.OTN ---
Current Diagnoses Medial epicondylitis, right elbow (07/17/19) Lateral epicondylitis, right elbow (07/17/19) Physical Therapy Treatment Note PT-OP-A Visit Information Start: 04/18/19 15:54 Freq: Status: Active Protocol: Document 07/17/19 16:00 DCW (Rec: 07/17/19 16:54 DCW [id number]) Out-Patient Physical Therapy Visit Information Visit Information Visit Type Treatment Note Visit Start Time 16:00 Visit Stop Time 16:45 Total Visit Minutes 45 Visit Number 17 Number of MARKET CONSULTANT Visits 0 Evaluation Information Evaluation Date 04/18/19 PT-OP-B Current Condition Start: 04/18/19 15:54 Freq: Status: Active Protocol: Document 07/17/19 16:00 DCW (Rec: 07/17/19 16:13 DCW [id number]) Current Condition History of Current Condition Onset Date 07/2018 Current Complaints gripping and lifting difficulty due to right elbow pain History of Current Condition Patient reports multiple injection to left elbow years ago due to tennis elbow diagnosis. She reports this condition recurs again last July/2018 but got better on October 2018 after steroid shots. She reports on 2018 she injured her elbow at work by banging her elbow at the wall and made re- aggravated the condition. She went to see her doctor few days after the injury and diagnoses to have left tennis elbow. ADDENDUM 07/17/19: Three weeks ago, pt underwent a [facility] procedure for her Lateral epicondylitis. Per procedure protocol, pt was off therapy for three weeks, and can now begin stretching and modalities, hold off on strengthening for two more weeks. Prior Treatments and Tests X-rays recently with not fracture identified per patient [facility] on 06/27/19 PT-OP-C Subjective Start: 04/18/19 15:54 Freq: Status: Active Protocol: Document 06/22/19 14:32 HH (Rec: 06/22/19 15:27 HH [email or web address]) OP-PT Subjective Patient Comments Patient Comments Im the same and i decided to do sx [facility] tx with Dr. Grande next wed 06/27 that he found out i have bone spur and scar tissue on my elbow and there will be no PT for 3 weeks so i could start PT from 07/17. Patient Reported Progress Same PT-OP-F Manual Assessment Start: 04/18/19 15:54 Freq: Status: Active Protocol: Document 07/17/19 16:00 DCW (Rec: 07/17/19 16:13 DCW [id number]) Manual Assessments Soft Tissue Assessment Soft Tissue Mobility Assessment Edema and increased tone along lateral extensors origin PT-OP-J Posture/Palpation/Skin Start: 04/18/19 15:54 Freq: Status: Active Protocol: Document 04/18/19 16:47 EA (Rec: 04/18/19 17:22 EA [id number]) Posture Evaluation Comments Posture Comments WFL. Elbow slightly bent in standing Skin Assessment Other Assessments Skin Assessment Comments No signs of acute inflammation or skin discoloration noted. PT-OP-K Range of Motion Start: 04/18/19 15:54 Freq: Status: Active Protocol: Document 07/17/19 16:00 DCW (Rec: 07/17/19 16:13 DCW [id number]) Elbow/Forearm Range of Motion Elbow/Forearm Right Active Elbow Flexion (degrees) 135 Elbow Extension (degrees) 0 Elbow Hyperextension 5 Pronation (degrees) 80 Supination (degrees) 90 Elbow/Forearm ROM Limitations Comments Pain with full flexion Wrist Goniometric Range of Motion Wrist Right Flexion Active (degrees) 80 Extension Active (degrees) 50 Ulnar Deviation Active (degrees) 30 Radial Deviation Active (degrees) 45 PT-OP-L Special Tests Start: 04/18/19 15:54 Freq: Status: Active Protocol: Document 04/18/19 16:47 EA (Rec: 04/18/19 17:22 EA [id number]) Special Tests Wrist/Hand Special Tests Lateral Epicondylitis Extended Test Results + PT-OP-M Strength Start: 04/18/19 15:54 Freq: Status: Active Protocol: Document 07/17/19 16:00 DCW (Rec: 07/17/19 16:13 DCW [id number]) Wrist Strength Wrist Manual Muscle Testing Right Flexion (C7) 5 Normal Extension (C6) 4+ Good+ Ulnar Deviation 4+ Good+ Radial Deviation 4+ Good+ Hand Dairy Specialist/Pinch Strength Hand Strength Right Dairy Specialist (lbs) 21.67 Comments 3-trial avg (20, 25, 20 lbs) Left Dairy Specialist (lbs) 57.3 Comments 3-trial avg (55, 57, 60 lbs) PT-OP-Q Treatments Start: 04/18/19 15:54 Freq: Status: Active Protocol: Document 07/17/19 16:00 DCW (Rec: 07/17/19 16:54 DCW [id number]) Manual Therapy Treatment Soft Tissue Mobilization Common Extensor Tendon Body Location Common Extensor Tendon Mobilization Type Cross-Friction,Sustained Pressure Intensity/Depth Superficial Joint Mobilizations 1 Joint radioulnar Direction PAs Grade II PT-OP-R Modalities Start: 04/18/19 15:54 Freq: Status: Active Protocol: Document 07/17/19 16:00 DCW (Rec: 07/17/19 16:54 DCW [id number]) Hot Pack/Cold Pack Treatment Ice Massage Location R Lateral Epicondyle Patient Position Sitting Treatment Duration (minutes) 5 Ultrasound Therapy Treatment Right Forearm Treatment Duration (minutes) 8 Patient Position Sitting Coupling Medium Ultrasound Gel Frequency Setting (mHz) 3 Mode Setting Pulsed Duty Cycle 50% Intensity Setting (w/cm2) 1.2 PT-OP-T Assessment and Plan Start: 04/18/19 15:54 Freq: Status: Active Protocol: Document 07/17/19 16:00 DCW (Rec: 07/17/19 16:54 DCW [id number]) Physical Therapy Assessment Goals Four Impairment Impaired ROM Internal Controls Consultant Goal (LTG) Patient will reach full wrist AROM to enable patient perform hand task without limitation LTG Duration 4 wks Three Impairment Right elbow Pain 7/10 Group Home Goal (LTG) Patient will subjectively report pain score of 2/10 to enable patient perform home task that requires wrist motions without limitation. LTG Duration 5 wks Two Impairment QuickDash score 89/100 Internal Controls Consultant Goal (LTG) Patient will have quickDash score of <25/100 LTG Duration 5 wks One Impairment No HEP in place Internal Controls Consultant Goal (LTG) Patient will perform HEP safely and independently. LTG Duration 3 wks Assessment Summary Assessment Pt doing very well three weeks s/p Tenex procedure. Pt showing increased elbow and wrist ROM, trench digger helper strength, and decreased tenderness. Per [facility]ex protocol, pt to work on stretching and modalities for the next two weeks, and then transition to strengthening. Physical Therapy Plan Frequency and Duration Frequency of Treatment 2x/Week Duration of Treatment 8 weeks Plan of Care Start Date 07/17/19 Plan of Care End Date 12/10/19 Next Visit Focus/Plan Next Note Type Treatment Note Next Visit Plan Stretching and modalities, transition to strengthening in two weeks.
--- NOTE | 2019-07-17 16:55 | PT.OPPOC ---
Current Diagnoses Medial epicondylitis, right elbow (07/17/19) Lateral epicondylitis, right elbow (07/17/19) Visit Care Team Role Provider Type Taj Farley MD Primary Care Provider Non-Staff Specialty: [facility] Address: [address] [place], [address] Email: [email or web address] Kurt Huber DO Attending Provider Non-Staff Specialty: Orthopedics Address: [facility] [place], [address] Email: Plan Of Care PT-OP-T Assessment and Plan Start: 04/18/19 15:54 Freq: Status: Active Protocol: Document 07/17/19 16:00 DCW (Rec: 07/17/19 16:54 DCW [id number]) Physical Therapy Assessment Goals Four Impairment Impaired ROM Longterm Goal (LTG) Patient will reach full wrist AROM to enable patient perform hand task without limitation LTG Duration 4 wks Three Impairment Right elbow Pain 7/10 Cnc Machine Setter Goal (LTG) Patient will subjectively report pain score of 2/10 to enable patient perform home task that requires wrist motions without limitation. LTG Duration 5 wks Two Impairment QuickDash score 89/100 Cnc Machine Setter Goal (LTG) Patient will have quickDash score of <25/100 LTG Duration 5 wks One Impairment No HEP in place Cnc Machine Setter Goal (LTG) Patient will perform HEP safely and independently. LTG Duration 3 wks Assessment Summary Assessment Pt doing very well three weeks s/p Tenex procedure. Pt showing increased elbow and wrist ROM, test administrator strength, and decreased tenderness. Per Tenex protocol, pt to work on stretching and modalities for the next two weeks, and then transition to strengthening. Physical Therapy Plan Frequency and Duration Frequency of Treatment 2x/Week Duration of Treatment 8 weeks Plan of Care Start Date 07/17/19 Plan of Care End Date 09/11/19 Next Visit Focus/Plan Next Note Type Treatment Note Next Visit Plan Stretching and modalities, transition to strengthening in two weeks. Plan of Care Dates Plan of Care Start Date 07/17/19 Plan of Care End Date 09/11/19
--- NOTE | 2019-07-24 17:46 | PT.OTN ---
Current Diagnoses Medial epicondylitis, right elbow (07/24/19) Lateral epicondylitis, right elbow (07/24/19) Physical Therapy Treatment Note PT-OP-A Visit Information Start: 04/18/19 15:54 Freq: Status: Active Protocol: Document 07/24/19 16:00 DCW (Rec: 07/24/19 16:45 DCW [id number]) Out-Patient Physical Therapy Visit Information Visit Information Visit Type Treatment Note Visit Start Time 16:00 Visit Stop Time 16:45 Total Visit Minutes 45 Visit Number 18 Number of BODY DESIGN CHECKER Visits 0 Evaluation Information Evaluation Date 04/18/19 PT-OP-B Current Condition Start: 04/18/19 15:54 Freq: Status: Active Protocol: Document 07/17/19 16:00 DCW (Rec: 07/17/19 16:13 DCW [id number]) Current Condition History of Current Condition Onset Date 07/2018 Current Complaints gripping and lifting difficulty due to right elbow pain History of Current Condition Patient reports multiple injection to left elbow years ago due to tennis elbow diagnosis. She reports this condition recurs again last July/2018 but got better on October 2018 after steroid shots. She reports on 2018 she injured her elbow at work by banging her elbow at the wall and made re- aggravated the condition. She went to see her doctor few days after the injury and diagnoses to have left tennis elbow. ADDENDUM 07/17/19: Three weeks ago, pt underwent a Tenex procedure for her Lateral epicondylitis. Per procedure protocol, pt was off therapy for three weeks, and can now begin stretching and modalities, hold off on strengthening for two more weeks. Prior Treatments and Tests X-rays recently with not fracture identified per patient Tenex on 06/27/19 PT-OP-C Subjective Start: 04/18/19 15:54 Freq: Status: Active Protocol: Document 07/24/19 16:00 DCW (Rec: 07/24/19 16:45 DCW [id number]) OP-PT Subjective Patient Comments Patient Comments Dr. Huber transferred my care to Dr. Grande, the one who did the Tenex procedure. Pt notes that she was told pt should work on getting her arm straight, and start strengthening next week. PT-OP-F Manual Assessment Start: 04/18/19 15:54 Freq: Status: Active Protocol: Document 07/17/19 16:00 DCW (Rec: 07/17/19 16:13 DCW [id number]) Manual Assessments Soft Tissue Assessment Soft Tissue Mobility Assessment Edema and increased tone along lateral extensors origin PT-OP-J Posture/Palpation/Skin Start: 04/18/19 15:54 Freq: Status: Active Protocol: Document 04/18/19 16:47 EA (Rec: 04/18/19 17:22 EA [id number]) Posture Evaluation Comments Posture Comments WFL. Elbow slightly bent in standing Skin Assessment Other Assessments Skin Assessment Comments No signs of acute inflammation or skin discoloration noted. PT-OP-K Range of Motion Start: 04/18/19 15:54 Freq: Status: Active Protocol: Document 07/17/19 16:00 DCW (Rec: 07/17/19 16:13 DCW [id number]) Elbow/Forearm Range of Motion Elbow/Forearm Right Active Elbow Flexion (degrees) 135 Elbow Extension (degrees) 0 Elbow Hyperextension 5 Pronation (degrees) 80 Supination (degrees) 90 Elbow/Forearm ROM Limitations Comments Pain with full flexion Wrist Goniometric Range of Motion Wrist Right Flexion Active (degrees) 80 Extension Active (degrees) 50 Ulnar Deviation Active (degrees) 30 Radial Deviation Active (degrees) 45 PT-OP-L Special Tests Start: 04/18/19 15:54 Freq: Status: Active Protocol: Document 04/18/19 16:47 EA (Rec: 04/18/19 17:22 EA [id number]) Special Tests Wrist/Hand Special Tests Lateral Epicondylitis Extended Test Results + PT-OP-M Strength Start: 04/18/19 15:54 Freq: Status: Active Protocol: Document 07/17/19 16:00 DCW (Rec: 07/17/19 16:13 DCW [id number]) Wrist Strength Wrist Manual Muscle Testing Right Flexion (C7) 5 Normal Extension (C6) 4+ Good+ Ulnar Deviation 4+ Good+ Radial Deviation 4+ Good+ Hand Loan Processing Supervisor/Pinch Strength Hand Strength Right Loan Processing Supervisor (lbs) 21.67 Comments 3-trial avg (20, 25, 20 lbs) Left Loan Processing Supervisor (lbs) 57.3 Comments 3-trial avg (55, 57, 60 lbs) PT-OP-Q Treatments Start: 04/18/19 15:54 Freq: Status: Active Protocol: Document 07/24/19 16:00 DCW (Rec: 07/24/19 17:46 DCW [id number]) Manual Therapy Treatment Soft Tissue Mobilization Biceps Body Location Biceps Mobilization Type Myofascial Release,Sustained Pressure,Trigger Point Release ,Other Common Extensor Tendon Body Location Common Extensor Tendon Mobilization Type Cross-Friction,Sustained Pressure Intensity/Depth Superficial Joint Mobilizations 1 Joint radioulnar Direction PAs Grade II Nerve Glides radial nerve glide Body Position Sitting Reps/Duration 5 mins Comments with cervical lateral flexion PT-OP-R Modalities Start: 04/18/19 15:54 Freq: Status: Active Protocol: Document 07/24/19 16:00 DCW (Rec: 07/24/19 17:46 DCW [id number]) Hot Pack/Cold Pack Treatment Ice Massage Location R Lateral Epicondyle Patient Position Sitting Treatment Duration (minutes) 5 Ultrasound Therapy Treatment Right Forearm Treatment Duration (minutes) 8 Patient Position Sitting Coupling Medium Ultrasound Gel Frequency Setting (mHz) 3 Mode Setting Pulsed Duty Cycle 50% Intensity Setting (w/cm2) 1.2 PT-OP-T Assessment and Plan Start: 04/18/19 15:54 Freq: Status: Active Protocol: Document 07/24/19 16:00 DCW (Rec: 07/24/19 17:46 DCW [id number]) Physical Therapy Assessment Goals Four Impairment Impaired ROM Detention Goal (LTG) Patient will reach full wrist AROM to enable patient perform hand task without limitation LTG Duration 4 wks Three Impairment Right elbow Pain 7/10 Detention Goal (LTG) Patient will subjectively report pain score of 2/10 to enable patient perform home task that requires wrist motions without limitation. LTG Duration 5 wks Two Impairment QuickDash score 89/100 Detention Goal (LTG) Patient will have quickDash score of <25/100 LTG Duration 5 wks One Impairment No HEP in place Joint Cutter Machine Goal (LTG) Patient will perform HEP safely and independently. LTG Duration 3 wks Assessment Summary Assessment Pt responded well to stretching, right elbow getting to full extension. PT does display tightness throught biceps, likely due to recent lack of use. Physical Therapy Plan Frequency and Duration Frequency of Treatment 2x/Week Duration of Treatment 8 weeks Plan of Care Start Date 07/17/19 Plan of Care End Date 09/11/19 Next Visit Focus/Plan Next Note Type Treatment Note Next Visit Plan Stretching and modalities, transition to strengthening in two weeks.
--- NOTE | 2019-08-08 16:01 | PT.OTN ---
Current Diagnoses Medial epicondylitis, right elbow (08/08/19) Lateral epicondylitis, right elbow (08/08/19) Physical Therapy Treatment Note PT-OP-A Visit Information Start: 04/18/19 15:54 Freq: Status: Active Protocol: Document 08/08/19 15:15 DCW (Rec: 08/08/19 16:01 DCW [id number]) Out-Patient Physical Therapy Visit Information Visit Information Visit Type Treatment Note Visit Start Time 15:15 Visit Stop Time 16:00 Total Visit Minutes 45 Visit Number 19 Number of MANAGER ELECTRICAL Visits 0 Evaluation Information Evaluation Date 04/18/19 PT-OP-B Current Condition Start: 04/18/19 15:54 Freq: Status: Active Protocol: Document 07/17/19 16:00 DCW (Rec: 07/17/19 16:13 DCW [id number]) Current Condition History of Current Condition Onset Date 07/2018 Current Complaints gripping and lifting difficulty due to right elbow pain History of Current Condition Patient reports multiple injection to left elbow years ago due to tennis elbow diagnosis. She reports this condition recurs again last July/2018 but got better on October 2018 after steroid shots. She reports on 2018 she injured her elbow at work by banging her elbow at the wall and made re- aggravated the condition. She went to see her doctor few days after the injury and diagnoses to have left tennis elbow. ADDENDUM 07/17/19: Three weeks ago, pt underwent a Tenex procedure for her Lateral epicondylitis. Per procedure protocol, pt was off therapy for three weeks, and can now begin stretching and modalities, hold off on strengthening for two more weeks. Prior Treatments and Tests X-rays recently with not fracture identified per patient Tenex on 06/27/19 PT-OP-C Subjective Start: 04/18/19 15:54 Freq: Status: Active Protocol: Document 08/08/19 15:15 DCW (Rec: 08/08/19 16:01 DCW [id number]) OP-PT Subjective Patient Comments Patient Comments Pt feels like she has been improving a lot since the Tenex, ready to work on strengthening. PT-OP-F Manual Assessment Start: 04/18/19 15:54 Freq: Status: Active Protocol: Document 07/17/19 16:00 DCW (Rec: 07/17/19 16:13 DCW [id number]) Manual Assessments Soft Tissue Assessment Soft Tissue Mobility Assessment Edema and increased tone along lateral extensors origin PT-OP-J Posture/Palpation/Skin Start: 04/18/19 15:54 Freq: Status: Active Protocol: Document 04/18/19 16:47 EA (Rec: 04/18/19 17:22 EA [id number]) Posture Evaluation Comments Posture Comments WFL. Elbow slightly bent in standing Skin Assessment Other Assessments Skin Assessment Comments No signs of acute inflammation or skin discoloration noted. PT-OP-K Range of Motion Start: 04/18/19 15:54 Freq: Status: Active Protocol: Document 07/17/19 16:00 DCW (Rec: 07/17/19 16:13 DCW [id number]) Elbow/Forearm Range of Motion Elbow/Forearm Right Active Elbow Flexion (degrees) 135 Elbow Extension (degrees) 0 Elbow Hyperextension 5 Pronation (degrees) 80 Supination (degrees) 90 Elbow/Forearm ROM Limitations Comments Pain with full flexion Wrist Goniometric Range of Motion Wrist Right Flexion Active (degrees) 80 Extension Active (degrees) 50 Ulnar Deviation Active (degrees) 30 Radial Deviation Active (degrees) 45 PT-OP-L Special Tests Start: 04/18/19 15:54 Freq: Status: Active Protocol: Document 04/18/19 16:47 EA (Rec: 04/18/19 17:22 EA [id number]) Special Tests Wrist/Hand Special Tests Lateral Epicondylitis Extended Test Results + PT-OP-M Strength Start: 04/18/19 15:54 Freq: Status: Active Protocol: Document 08/08/19 15:15 DCW (Rec: 08/08/19 16:01 DCW [id number]) Hand Senior C Software Engineer/Pinch Strength Hand Strength Right Senior C Software Engineer (lbs) 45.00 Comments 3-trial avg (45, 45,45 lbs) PT-OP-Q Treatments Start: 04/18/19 15:54 Freq: Status: Active Protocol: Document 08/08/19 15:15 DCW (Rec: 08/08/19 16:01 DCW [id number]) Therapeutic Exercises Sitting Exercises wrist flexion ext Sitting Exercise Name Wrist Ext Side right Resistance 4# 4 Sitting Exercise Name Biceps Curls Side right Equipment Used 4# 3 Sitting Exercise Name Wrist flexion Equipment Used 4# Reps/Minutes x12 reps x 2 2 Sitting Exercise Name wrist extensor stretch Reps/Minutes 30x2 1 Sitting Exercise Name Ulnar Deviation Side right Resistance 4# Senior C Software Engineer Strengthening Sitting Exercise Name Thera-Putty Side right Resistance Green Supination/Pronation Sitting Exercise Name Pronation/Supination Resistance Hammer Standing Exercises Internal Rotation Standing Exercise Name Shoulder IR Side right Resistance Lv 1 Equipment Used T-band External Rotation Standing Exercise Name Shoulder ER Side right Resistance Lv 1 Equipment Used T-band Abduction Standing Exercise Name Shoulder Abduction Side right Resistance Lv 1 Equipment Used T-band Flexion Standing Exercise Name Shoulder flexion Side right Resistance Lv 1 Equipment Used T-band PT-OP-R Modalities Start: 04/18/19 15:54 Freq: Status: Active Protocol: Document 07/24/19 16:00 DCW (Rec: 07/24/19 17:46 DCW [id number]) Hot Pack/Cold Pack Treatment Ice Massage Location R Lateral Epicondyle Patient Position Sitting Treatment Duration (minutes) 5 Ultrasound Therapy Treatment Right Forearm Treatment Duration (minutes) 8 Patient Position Sitting Coupling Medium Ultrasound Gel Frequency Setting (mHz) 3 Mode Setting Pulsed Duty Cycle 50% Intensity Setting (w/cm2) 1.2 PT-OP-T Assessment and Plan Start: 04/18/19 15:54 Freq: Status: Active Protocol: Document 08/08/19 15:15 DCW (Rec: 08/08/19 16:01 DCW [id number]) Physical Therapy Assessment Impairments Impairments Activity Tolerance,Functional Activities,Pain,ROM,Soft Tissue Mobility,Strength Goals Four Impairment Impaired ROM Automatic Paint Sprayer Operator Goal (LTG) Patient will reach full wrist AROM to enable patient perform hand task without limitation LTG Duration 4 wks Three Impairment Right elbow Pain 7/10 Automatic Paint Sprayer Operator Goal (LTG) Patient will subjectively report pain score of 2/10 to enable patient perform home task that requires wrist motions without limitation. LTG Duration 5 wks Two Impairment QuickDash score 89/100 Automatic Paint Sprayer Operator Goal (LTG) Patient will have quickDash score of <25/100 LTG Duration 5 wks One Impairment No HEP in place Skilled Nursing Goal (LTG) Patient will perform HEP safely and independently. 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 Physical Therapy Plan Frequency and Duration Frequency of Treatment 2x/Week Duration of Treatment 8 weeks Plan of Care Start Date 07/17/19 Plan of Care End Date 09/11/19 Next Visit Focus/Plan Next Note Type Treatment Note Next Visit Plan Strengthening on wrist, elbow, and shoulder, begin to transition to HEP
--- NOTE | 2019-08-21 16:46 | PT.OTN ---
Current Diagnoses Medial epicondylitis, right elbow (08/21/19) Lateral epicondylitis, right elbow (08/21/19) Physical Therapy Treatment Note PT-OP-A Visit Information Start: 04/18/19 15:54 Freq: Status: Active Protocol: Document 08/21/19 16:00 DCW (Rec: 08/21/19 16:46 DCW [id number]) Out-Patient Physical Therapy Visit Information Visit Information Visit Type Treatment Note Visit Start Time 16:00 Visit Stop Time 16:45 Total Visit Minutes 45 Visit Number 20 Number of STATE ATTORNEY Visits 0 Evaluation Information Evaluation Date 04/18/19 PT-OP-B Current Condition Start: 04/18/19 15:54 Freq: Status: Active Protocol: Document 07/17/19 16:00 DCW (Rec: 07/17/19 16:13 DCW [id number]) Current Condition History of Current Condition Onset Date 07/2018 Current Complaints gripping and lifting difficulty due to right elbow pain History of Current Condition Patient reports multiple injection to left elbow years ago due to tennis elbow diagnosis. She reports this condition recurs again last July/2018 but got better on October 2018 after steroid shots. She reports on 2018 she injured her elbow at work by banging her elbow at the wall and made re- aggravated the condition. She went to see her doctor few days after the injury and diagnoses to have left tennis elbow. ADDENDUM 07/17/19: Three weeks ago, pt underwent a Tenex procedure for her Lateral epicondylitis. Per procedure protocol, pt was off therapy for three weeks, and can now begin stretching and modalities, hold off on strengthening for two more weeks. Prior Treatments and Tests X-rays recently with not fracture identified per patient Tenex on 06/27/19 PT-OP-C Subjective Start: 04/18/19 15:54 Freq: Status: Active Protocol: Document 08/21/19 16:00 DCW (Rec: 08/21/19 16:46 DCW [id number]) OP-PT Subjective Patient Comments Patient Comments Pt reports she felt fairly sore following her last appointment, with the addition of strengthening exercises, but felt better after a few days. Notes she has not been doing well recently, work has just been murder on it, despite the fact that she is supposed to be on light duty. PT-OP-F Manual Assessment Start: 04/18/19 15:54 Freq: Status: Active Protocol: Document 07/17/19 16:00 DCW (Rec: 07/17/19 16:13 DCW [id number]) Manual Assessments Soft Tissue Assessment Soft Tissue Mobility Assessment Edema and increased tone along lateral extensors origin PT-OP-J Posture/Palpation/Skin Start: 04/18/19 15:54 Freq: Status: Active Protocol: Document 04/18/19 16:47 EA (Rec: 04/18/19 17:22 EA [id number]) Posture Evaluation Comments Posture Comments WFL. Elbow slightly bent in standing Skin Assessment Other Assessments Skin Assessment Comments No signs of acute inflammation or skin discoloration noted. PT-OP-K Range of Motion Start: 04/18/19 15:54 Freq: Status: Active Protocol: Document 07/17/19 16:00 DCW (Rec: 07/17/19 16:13 DCW [id number]) Elbow/Forearm Range of Motion Elbow/Forearm Right Active Elbow Flexion (degrees) 135 Elbow Extension (degrees) 0 Elbow Hyperextension 5 Pronation (degrees) 80 Supination (degrees) 90 Elbow/Forearm ROM Limitations Comments Pain with full flexion Wrist Goniometric Range of Motion Wrist Right Flexion Active (degrees) 80 Extension Active (degrees) 50 Ulnar Deviation Active (degrees) 30 Radial Deviation Active (degrees) 45 PT-OP-L Special Tests Start: 04/18/19 15:54 Freq: Status: Active Protocol: Document 04/18/19 16:47 EA (Rec: 04/18/19 17:22 EA [id number]) Special Tests Wrist/Hand Special Tests Lateral Epicondylitis Extended Test Results + PT-OP-M Strength Start: 04/18/19 15:54 Freq: Status: Active Protocol: Document 08/08/19 15:15 DCW (Rec: 08/08/19 16:01 DCW [id number]) Hand Tractor Engine Assembler/Pinch Strength Hand Strength Right Tractor Engine Assembler (lbs) 45.00 Comments 3-trial avg (45, 45,45 lbs) PT-OP-Q Treatments Start: 04/18/19 15:54 Freq: Status: Active Protocol: Document 08/21/19 16:00 DCW (Rec: 08/21/19 16:46 DCW [id number]) Manual Therapy Treatment Soft Tissue Mobilization Biceps Body Location Biceps Mobilization Type Myofascial Release,Sustained Pressure,Trigger Point Release ,Other Common Extensor Tendon Body Location Common Extensor Tendon Mobilization Type Cross-Friction,Sustained Pressure Intensity/Depth Superficial Joint Mobilizations 1 Joint radioulnar Direction PAs Grade II Nerve Glides radial nerve glide Body Position Sitting Reps/Duration 5 mins Comments with cervical lateral flexion PT-OP-R Modalities Start: 04/18/19 15:54 Freq: Status: Active Protocol: Document 07/24/19 16:00 DCW (Rec: 07/24/19 17:46 DCW [id number]) Hot Pack/Cold Pack Treatment Ice Massage Location R Lateral Epicondyle Patient Position Sitting Treatment Duration (minutes) 5 Ultrasound Therapy Treatment Right Forearm Treatment Duration (minutes) 8 Patient Position Sitting Coupling Medium Ultrasound Gel Frequency Setting (mHz) 3 Mode Setting Pulsed Duty Cycle 50% Intensity Setting (w/cm2) 1.2 PT-OP-T Assessment and Plan Start: 04/18/19 15:54 Freq: Status: Active Protocol: Document 08/21/19 16:00 DCW (Rec: 08/21/19 16:46 DCW [id number]) Physical Therapy Assessment Assessment Summary Assessment Returned focus to manual therapy and stretching today. Pt has been overusing her arm at work, came in very sore today. Discussed with patient importance of rest and following lifting restrictions (lifting as tolerated.) Physical Therapy Plan Frequency and Duration Frequency of Treatment 2x/Week Duration of Treatment 8 weeks Plan of Care Start Date 07/17/19 Plan of Care End Date 09/11/19 Next Visit Focus/Plan Next Note Type Treatment Note Next Visit Plan Strengthening on wrist, elbow, and shoulder, begin to transition to HEP
--- NOTE | 2019-09-05 17:17 | PT.OTN ---
Current Diagnoses Medial epicondylitis, right elbow (09/05/19) Lateral epicondylitis, right elbow (09/05/19) Physical Therapy Treatment Note PT-OP-A Visit Information Start: 04/18/19 15:54 Freq: Status: Active Protocol: Document 09/05/19 16:45 DCW (Rec: 09/05/19 17:16 DCW [id number]) Out-Patient Physical Therapy Visit Information Visit Information Visit Type Discharge Summary Visit Start Time 16:45 Visit Stop Time 17:10 Total Visit Minutes 25 Visit Number 21 Number of CASER SHOE PARTS Visits 0 Evaluation Information Evaluation Date 04/18/19 PT-OP-B Current Condition Start: 04/18/19 15:54 Freq: Status: Active Protocol: Document 07/17/19 16:00 DCW (Rec: 07/17/19 16:13 DCW [id number]) Current Condition History of Current Condition Onset Date 07/2018 Current Complaints gripping and lifting difficulty due to right elbow pain History of Current Condition Patient reports multiple injection to left elbow years ago due to tennis elbow diagnosis. She reports this condition recurs again last July/2018 but got better on October 2018 after steroid shots. She reports on 2018 she injured her elbow at work by banging her elbow at the wall and made re- aggravated the condition. She went to see her doctor few days after the injury and diagnoses to have left tennis elbow. ADDENDUM 07/17/19: Three weeks ago, pt underwent a Tenex procedure for her Lateral epicondylitis. Per procedure protocol, pt was off therapy for three weeks, and can now begin stretching and modalities, hold off on strengthening for two more weeks. Prior Treatments and Tests X-rays recently with not fracture identified per patient Tenex on 06/27/19 PT-OP-C Subjective Start: 04/18/19 15:54 Freq: Status: Active Protocol: Document 09/05/19 16:45 DCW (Rec: 09/05/19 17:17 DCW [id number]) OP-PT Subjective Patient Comments Patient Comments Pt notes she is much better than last visit, but probably not as good as I was a month ago. PT-OP-F Manual Assessment Start: 04/18/19 15:54 Freq: Status: Active Protocol: Document 09/05/19 16:45 DCW (Rec: 09/05/19 16:57 DCW [id number]) Manual Assessments Soft Tissue Assessment Soft Tissue Mobility Assessment Tone WNL PT-OP-J Posture/Palpation/Skin Start: 04/18/19 15:54 Freq: Status: Active Protocol: Document 09/05/19 16:45 DCW (Rec: 09/05/19 16:57 DCW [id number]) Posture Evaluation Comments Posture Comments WNL PT-OP-K Range of Motion Start: 04/18/19 15:54 Freq: Status: Active Protocol: Document 09/05/19 16:45 DCW (Rec: 09/05/19 16:57 DCW [id number]) Elbow/Forearm Range of Motion Elbow/Forearm Right Active Elbow Flexion (degrees) 135 Elbow Extension (degrees) 0 Elbow Hyperextension 5 Pronation (degrees) 80 Supination (degrees) 90 Elbow/Forearm ROM Limitations Comments Mild stretch/soreness with full extension, mild pain with full flexion Wrist Goniometric Range of Motion Wrist Right Flexion Active (degrees) 80 Extension Active (degrees) 50 Ulnar Deviation Active (degrees) 30 Radial Deviation Active (degrees) 45 PT-OP-L Special Tests Start: 04/18/19 15:54 Freq: Status: Active Protocol: Document 04/18/19 16:47 EA (Rec: 04/18/19 17:22 EA [id number]) Special Tests Wrist/Hand Special Tests Lateral Epicondylitis Extended Test Results + PT-OP-M Strength Start: 04/18/19 15:54 Freq: Status: Active Protocol: Document 09/05/19 16:45 DCW (Rec: 09/05/19 16:57 DCW [id number]) Elbow/Forearm Strength Elbow and Forearm Manual Muscle Testing Right Flexion (C6) 4+ Good+ Extension (C7) 4 Good Pronation 4- Good- Supination 4+ Good+ Wrist Strength Wrist Manual Muscle Testing Right Flexion (C7) 5 Normal Extension (C6) 5 Normal Ulnar Deviation 5 Normal Radial Deviation 5 Normal Hand Flow Match Sofa Cutter/Pinch Strength Hand Strength Right Flow Match Sofa Cutter (lbs) 40.00 Comments 3-trial avg (45, 40, 35 lbs) PT-OP-Q Treatments Start: 04/18/19 15:54 Freq: Status: Active Protocol: Document 09/05/19 16:45 DCW (Rec: 12/04/19 17:16 DCW [id number]) Manual Therapy Treatment Soft Tissue Mobilization Biceps Body Location Biceps Mobilization Type Myofascial Release,Sustained Pressure,Trigger Point Release ,Other Common Extensor Tendon Body Location Common Extensor Tendon Mobilization Type Cross-Friction,Sustained Pressure Intensity/Depth Superficial PT-OP-R Modalities Start: 04/18/19 15:54 Freq: Status: Active Protocol: Document 07/24/19 16:00 DCW (Rec: 07/24/19 17:46 DCW [id number]) Hot Pack/Cold Pack Treatment Ice Massage Location R Lateral Epicondyle Patient Position Sitting Treatment Duration (minutes) 5 Ultrasound Therapy Treatment Right Forearm Treatment Duration (minutes) 8 Patient Position Sitting Coupling Medium Ultrasound Gel Frequency Setting (mHz) 3 Mode Setting Pulsed Duty Cycle 50% Intensity Setting (w/cm2) 1.2 PT-OP-T Assessment and Plan Start: 04/18/19 15:54 Freq: Status: Active Protocol: Document 09/05/19 16:45 DCW (Rec: 09/05/19 17:16 DCW [id number]) Physical Therapy Assessment Impairments Impairments Activity Tolerance,Functional Activities,Pain,ROM,Soft Tissue Mobility,Strength Goals Four Impairment Impaired ROM Undercutter Operator Goal (LTG) Patient will reach full wrist AROM to enable patient perform hand task without limitation LTG Duration Partially met Three Impairment Right elbow Pain 7/10 [facility] Goal (LTG) Patient will subjectively report pain score of 2/10 to enable patient perform home task that requires wrist motions without limitation. LTG Duration Met Two Impairment QuickDash score 89/100 Undercutter Operator Goal (LTG) Patient will have quickDash score of <25/100 LTG Duration 5 wks One Impairment No HEP in place [facility] Goal (LTG) Patient will perform HEP safely and independently. LTG Duration Met Progress Towards Goals Progress Comments Goals largely met Assessment Summary Assessment Pt doing much better, able to return to work with assistance for heavier lifting. Pt insurance authorization is expiring, and pt feels that it is a good time to discharge. Pt will continue her HEP independently. Pt understands necessity of rest and avoidance of overuse and repetitive motions, but also admits that her job makes this difficult. Physical Therapy Plan Frequency and Duration Frequency of Treatment 2x/Week Duration of Treatment 8 weeks Plan of Care Start Date 07/17/19 Plan of Care End Date 09/11/19 Next Visit Focus/Plan Next Note Type Treatment Note Next Visit Plan Strengthening on wrist, elbow, and shoulder, begin to transition to HEP
== END 2020-03-03 11:17 ==
LOC: PHYS 16:45
PROVIDERS: PCP Family Medicine; Visit Provider Orthopaedic Surgery
DX: M77.11 Lateral epicondylitis, right elbow (principal); M77.01 Medial epicondylitis, right elbow
CPT/HCPCS: 97035; 97110; 97112; 97140; 97161; 97535

== ENCOUNTER → 2019-11-17 12:26 | Outpatient (CLI) | payer OTHER, SELFPAY ==
--- NOTE | 2019-11-17 | DI.MRI.S_ITS ---
PROCEDURE: MR ELBOW RT WO CON INDICATIONS: Lateral epicondylitis, right elbow TECHNIQUE: Noncontrast coronal proton density fast spin echo and T2 fast spin echo with fat saturation, axial and sagittal T1 spin echo and T2 fast spin echo with fat saturation through the elbow. COMPARISON: None. FINDINGS: Image quality: Excellent. Lateral structures: The lateral ulnar collateral ligament and radial collateral ligament both appear thickened with heterogeneous intrasubstance signal suggestive of sprain/low-grade partial-thickness tear The overlying common extensor tendon also appears thickened with heterogeneous T2 hyperintense signal suggestive of tendinosis and low-grade partial-thickness tear. Medial structures: The ulnar collateral ligament appears intact. The overlying common flexor tendon appears normal. The ulnar nerve appears normal in size and signal within the cubital tunnel. Anterior structures: The biceps and brachialis tendons both appear intact as they insert onto the proximal radius and ulna, respectively. No bicipitoradial bursal fluid. The median and radial neurovascular bundles appear normal; no focal muscle atrophy to suggest nerve impingement. Posterior structures: The conjoint triceps tendon from the long and lateral heads appears intact. The medial head of the triceps tendon also appears normal, with direct muscle insertion onto the olecranon. No olecranon bursal fluid. Bone and cartilage: No bone marrow contusions or fractures. No osteochondral injuries. IMPRESSION: 1. Tendinosis and low-grade partial-thickness tear involving common extensor tendon origin. Sprain/low-grade partial-thickness tear involving lateral collateral ligaments. Constellation of finding is consistent with lateral epicondylitis. 2. No marrow edema. No fracture or dislocation. 3. Medial elbow tendons and ligaments are intact. Distal biceps and triceps tendons are intact. Dictated by: Maxim Kelly M.D. on 11/19/2019 at 10:21 Approved by: Maxim Kelly M.D. on 11/19/2019 at 10:34
== END ==
PROVIDERS: PCP Student in an Organized Health Care Education/Training Program; Referring Provider Orthopaedic Surgery; Visit Provider Orthopaedic Surgery
DX: M77.11 Lateral epicondylitis, right elbow (principal); S53.491A Other sprain of right elbow, initial encounter; M25.521 Pain in right elbow; G89.29 Other chronic pain
CPT/HCPCS: 73221

== ENCOUNTER → 2019-12-06 13:12 | Outpatient (CLI) | payer OTHER, SELFPAY | PROVIDERS: PCP Student in an Organized Health Care Education/Training Program; Referring Provider Student in an Organized Health Care Education/Training Program; Visit Provider Student in an Organized Health Care Education/Training Program | DX: M85.851 Other specified disorders of bone density and structure, right thigh (principal); Z78.0 Asymptomatic menopausal state; Z82.62 Family history of osteoporosis; Z90.722 Acquired absence of ovaries, bilateral; F17.200 Nicotine dependence, unspecified, uncomplicated | CPT/HCPCS: 77080 ==

== ENCOUNTER 2020-04-30 10:30 | Outpatient (RCR) | payer OTHER, SELFPAY ==
--- NOTE | 2020-03-10 12:45 | PT.OPPOC ---
Physical, Occupational & Speech Therapy At [facility] Current Diagnoses Pain in right elbow (03/10/20) Stiffness of right elbow, not elsewhere classified (03/10/20) Lateral epicondylitis, right elbow (03/10/20) Weakness (03/10/20) Encounter for other specified surgical aftercare (03/10/20) Visit Care Team Role Provider Type Palma Burns MD Family Provider Physician Primary Care Provider Specialty: Family Practice Address: [address] [place] [address], [place], [address] Email: [email or web address] Frandy Bellamy MD Attending Provider Non-Staff Referring Provider Specialty: Orthopedic Surgery Address: [address] [place] [address], [address], [place], [address] Email: Plan Of Care PT-OP-T Assessment and Plan Start: 03/12/20 11:49 Freq: Status: Active Protocol: Document 03/10/20 12:00 DCW (Rec: 03/12/20 15:53 DCW [id number]) Physical Therapy Assessment Rehab Potential Rehabilitation Potential Good Evaluation Complexity Number of Personal Factors/Comorbidities 1-2 Number of Body Systems Impaired 3 Clinical Presentation at Evaluation Stable Impairments Impairments Activity Tolerance,Edema, Functional Activities, Functional Mobility,Integument ,Pain,ROM,Soft Tissue Mobility ,Strength Goals Four Impairment Right elbow ROM limited to 45- 122? Short Term Goal (STG) Right elbow ROM to improve to at least 20? extension and 130 ? flexion STG Duration 04/09/20 Nursing Home Goal (LTG) Right elbow ROM to improve to 0? extension and 140? flexion LTG Duration 05/10/20 Three Impairment Limited wrist ROM to 38? flexion and 45? extension Short Term Goal (STG) Pt to demonstrate improved R wrist flexion/extension to 60? 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 STG Duration 04/09/20 Two Impairment QuickDash score 75% Cassandra Developer Goal (LTG) Patient will have quickDash score of <25/100 LTG Duration 05/10/20 One Impairment No HEP in place Short Term Goal (STG) Pt to be independent and compliant with an appropriate HEP STG Duration 04/09/20 Assessment Summary Assessment Pt arrives today wearing a post-surgical splint six days post-op for lateral epicondylitis debridement and tendon repair. Per referral instructions, splint was removed for initiation of ROM activities. Pt's referral also requested manufacturing of wrist brace, unfortunately this clinic does not make braces. Pt reported she had a wrist brace at home that limits her ROM and prevents excessive radial and ulnar deviation. At this time, physical therapy is to focus on wrist and elbow ROM, and advance per post-op protocol. Pt tolerated gentle PROM well, excited to start getting chairez to her normal level of function. Physical Therapy Plan Frequency and Duration Frequency of Treatment 2x/Week Duration of Treatment 10 weeks Plan of Care Start Date 03/10/20 Plan of Care End Date 05/19/20 Therapeutic Interventions Therapeutic Interventions Home Exercise Program,Joint Mobilizations,Manual Therapy, Patient/Caregiver Education, Self-Care/Home Management,Soft Tissue Mobilization,Taping, Therapeutic Activities, Therapeutic Exercises Modalities Cold Pack/Ice Massage,Electric Stimulation,Hot Packs, Ultrasound Next Visit Focus/Plan Next Note Type Treatment Note Next Visit Plan Passive ROM, advance per post- op protocol. Plan of Care Dates Plan of Care Start Date 03/10/20 Plan of Care End Date 05/19/20 Electronically Signed by: Александр Mccoy, PT 03/12/20 [id number] Please Sign and Return: I have reviewed this Plan of Care and certify that the skilled therapy services above are required to meet the patient?s needs. Physician Signature Date Printed Name and Credentials Clinical Instructor Signature Printed Name and Credentials
--- NOTE | 2020-03-10 12:45 | PT.OIE ---
Current Diagnoses Pain in right elbow (03/10/20) Stiffness of right elbow, not elsewhere classified (03/10/20) Lateral epicondylitis, right elbow (03/10/20) Weakness (03/10/20) Encounter for other specified surgical aftercare (03/10/20) Visit Care Team Role Provider Type Palma Burns MD Family Provider Physician Primary Care Provider Specialty: Family Practice Address: [address] [place] [address], [address], [place], [address] Email: [email or web address] Frandy Bellamy MD Attending Provider Non-Staff Referring Provider Specialty: Orthopedic Surgery Address: [address] [place] [address], [address], [place], [address] Email: Physical Therapy Initial Evaluation PT-OP-A Visit Information Start: 03/12/20 11:49 Freq: Status: Active Protocol: Document 03/10/20 12:00 DCW (Rec: 03/12/20 12:02 ORW [id number]) Out-Patient Physical Therapy Visit Information Visit Information Visit Type Initial Evaluation Visit Start Time 12:00 Visit Stop Time 12:45 Total Visit Minutes 45 Visit Number 1 Number of WEIGHER OPERATOR Visits 0 Evaluation Information Evaluation Date 03/10/20 PT-OP-B Current Condition Start: 03/12/20 11:49 Freq: Status: Active Protocol: Document 03/10/20 12:00 DCW (Rec: 03/12/20 12:02 [facility] [id number]) Current Condition History of Current Condition Onset Date 03/04/20 Current Complaints 6 days s/p R Lateral epicondylitis debridement and tendon repair History of Current Condition Pt is a 59 year old female presenting 6 days s/p R Lateral epicondylitis debridement and tendon repair. Pt had previously been seen at this clinic last year for assessment and treatment of tendonitis, and pt was able to return to a functional level for work, but continued to experience significant pain. A recent MRI revealed partial- thickness tears of the lateral ulnar collateral ligament and radial collateral ligament, as well as the common extensor tendon. Pt underwent surgical debridement/repair, and presents today in her post-op splint. Per orders from her surgeon, splint was removed in order to begin initiation of ROM exercises. 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 PT-OP-C Subjective Start: 03/12/20 11:49 Freq: Status: Active Protocol: Document 03/10/20 12:00 DCW (Rec: 03/12/20 15:33 DCW [id number]) OP-PT Subjective Patient Comments Patient Comments Luckily, I haven't been needing to work over this shutdown, and I've been able to do all my teaching online. Patient Questionnaires Quick Dash- Upper Extremity Quick Dash UE Score 75% Quick Dash UE Impairment 60 to 79% Impaired (Score 60- 79) OP-PT Pain Assessment Pain Assessment Grid Paper Pain Assessment Grid Completed Yes Location Right Lateral Elbow Intensity 5 Scale Used Numeric (0 - 10) PT-OP-F Manual Assessment Start: 03/12/20 11:49 Freq: Status: Active Protocol: Document 03/10/20 12:00 DCW (Rec: 03/12/20 15:33 DCW [id number]) Manual Assessments Other Manual Assessments Other Manual Assessments Mild-moderate edema and joint effusion around right elbow. Significant joint stiffness after removal of splint. PT-OP-K Range of Motion Start: 03/12/20 11:49 Freq: Status: Active Protocol: Document 03/10/20 12:00 DCW (Rec: 03/12/20 15:33 DCW [id number]) Elbow/Forearm Range of Motion Elbow/Forearm Right Active Elbow/Forearm ROM WFL No ROM Testing Position Sitting Elbow Flexion (degrees) 122 Elbow Extension (degrees) 45 Pronation (degrees) 90 Supination (degrees) 35 Wrist Goniometric Range of Motion Wrist Right Wrist ROM WFL No Flexion Passive (degrees) 38 Extension Passive (degrees) 45 Ulnar Deviation Passive (degrees) 32 Radial Deviation Passive (degrees) 28 PT-OP-M Strength Start: 03/12/20 11:49 Freq: Status: Active Protocol: Document 03/10/20 12:00 DCW (Rec: 03/12/20 15:33 DCW [id number]) Wrist Strength Wrist Manual Muscle Testing Right Reason Not Measured Orthopedic Precautions PT-OP-Q Treatments Start: 03/12/20 11:49 Freq: Status: Active Protocol: Document 03/10/20 12:00 DCW (Rec: 03/12/20 15:33 [facility] [id number]) Therapeutic Exercises Sitting Exercises 3 Sitting Exercise Name AROM wrist circles Side right 2 Sitting Exercise Name Passive forearm supination/ pronation Side right 1 Sitting Exercise Name Passive elbow flexion/ extension Side right PT-OP-T Assessment and Plan Start: 03/12/20 11:49 Freq: Status: Active Protocol: Document 03/10/20 12:00 DCW (Rec: 03/12/20 15:53 DCW [id number]) Physical Therapy Assessment Rehab Potential Rehabilitation Potential Good Evaluation Complexity Number of Personal Factors/Comorbidities 1-2 Number of Body Systems Impaired 3 Clinical Presentation at Evaluation Stable Impairments Impairments Activity Tolerance,Edema, Functional Activities, Functional Mobility,Integument ,Pain,ROM,Soft Tissue Mobility ,Strength Goals Four Impairment Right elbow ROM limited to 45- 122? Short Term Goal (STG) Right elbow ROM to improve to at least 20? extension and 130 ? flexion STG Duration 04/09/20 Licensed Practical Nurse Instructor Goal (LTG) Right elbow ROM to improve to 0? extension and 140? flexion LTG Duration 05/10/20 Three Impairment Limited wrist ROM to 38? flexion and 45? extension Short Term Goal (STG) Pt to demonstrate improved wrist flexion/extension to 60? 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 STG Duration 04/09/20 Two Impairment QuickDash score 75% Licensed Practical Nurse Instructor Goal (LTG) Patient will have quickDash score of <25/100 LTG Duration 05/10/20 One Impairment No HEP in place Short Term Goal (STG) Pt to be independent and compliant with an appropriate HEP STG Duration 04/09/20 Assessment Summary Assessment Pt arrives today wearing a post-surgical splint six days post-op for lateral epicondylitis debridement and tendon repair. Per referral instructions, splint was removed for initiation of ROM activities. Pt's referral also requested manufacturing of wrist brace, unfortunately this clinic does not make braces. Pt reported she had a wrist brace at home that limits her ROM and prevents excessive radial and ulnar deviation. At this time, physical therapy is to focus on wrist and elbow ROM, and advance per post-op protocol. Pt tolerated gentle PROM well, excited to start getting chairez to her normal level of function. Physical Therapy Plan Frequency and Duration Frequency of Treatment 2x/Week Duration of Treatment 10 weeks Plan of Care Start Date 03/10/20 Plan of Care End Date 05/19/20 Therapeutic Interventions Therapeutic Interventions Home Exercise Program,Joint Mobilizations,Manual Therapy, Patient/Caregiver Education, Self-Care/Home Management,Soft Tissue Mobilization,Taping, Therapeutic Activities, Therapeutic Exercises Modalities Cold Pack/Ice Massage,Electric Stimulation,Hot Packs, Ultrasound Next Visit Focus/Plan Next Note Type Treatment Note Next Visit Plan Passive ROM, advance per post- op protocol.
--- NOTE | 2020-03-13 13:24 | PT.OTN ---
Current Diagnoses Pain in right elbow (03/13/20) Stiffness of right elbow, not elsewhere classified (03/13/20) Lateral epicondylitis, right elbow (03/13/20) Weakness (03/13/20) Encounter for other specified surgical aftercare (03/13/20) Physical Therapy Treatment Note PT-OP-A Visit Information Start: 03/12/20 11:49 Freq: Status: Active Protocol: Document 03/13/20 09:01 HH (Rec: 03/13/20 13:24 [email or web address]) Out-Patient Physical Therapy Visit Information Visit Information Visit Type Treatment Note Visit Start Time 09:01 Visit Stop Time 09:44 Total Visit Minutes 43 Visit Number 2 Number of PROCEDURE RN Visits 0 PT-OP-B Current Condition Start: 03/12/20 11:49 Freq: Status: Active Protocol: Document 03/10/20 12:00 DCW (Rec: 03/12/20 12:02 DCW [id number]) Current Condition History of Current Condition Onset Date 03/04/20 Current Complaints 6 days s/p R Lateral epicondylitis debridement and tendon repair History of Current Condition Pt is a 59 year old female presenting 6 days s/p R Lateral epicondylitis debridement and tendon repair. Pt had previously been seen at this clinic last year for assessment and treatment of tendonitis, and pt was able to return to a functional level for work, but continued to experience significant pain. A recent MRI revealed partial- thickness tears of the lateral ulnar collateral ligament and radial collateral ligament, as well as the common extensor tendon. Pt underwent surgical debridement/repair, and presents today in her post-op splint. Per orders from her surgeon, splint was removed in order to begin initiation of ROM exercises. 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 PT-OP-C Subjective Start: 03/12/20 11:49 Freq: Status: Active Protocol: Document 03/13/20 09:01 HH (Rec: 03/13/20 13:24 HH [email or web address]) OP-PT Subjective Patient Comments Patient Comments i feel great since the surgery. My numbness and tingling in R hand has gotten better. Maxine been doing passive elbow exercise. Patient Reported Progress Improving PT-OP-F Manual Assessment Start: 03/12/20 11:49 Freq: Status: Active Protocol: Document 03/10/20 12:00 DCW (Rec: 03/12/20 15:33 DCW [id number]) Manual Assessments Other Manual Assessments Other Manual Assessments Mild-moderate edema and joint effusion around right elbow. Significant joint stiffness after removal of splint. PT-OP-K Range of Motion Start: 03/12/20 11:49 Freq: Status: Active Protocol: Document 03/10/20 12:00 DCW (Rec: 03/12/20 15:33 DCW [id number]) Elbow/Forearm Range of Motion Elbow/Forearm Right Active Elbow/Forearm ROM WFL No ROM Testing Position Sitting Elbow Flexion (degrees) 122 Elbow Extension (degrees) 45 Pronation (degrees) 90 Supination (degrees) 35 Wrist Goniometric Range of Motion Wrist Right Wrist ROM WFL No Flexion Passive (degrees) 38 Extension Passive (degrees) 45 Ulnar Deviation Passive (degrees) 32 Radial Deviation Passive (degrees) 28 PT-OP-M Strength Start: 03/12/20 11:49 Freq: Status: Active Protocol: Document 03/10/20 12:00 DCW (Rec: 03/12/20 15:33 DCW [id number]) Wrist Strength Wrist Manual Muscle Testing Right Reason Not Measured Orthopedic Precautions PT-OP-Q Treatments Start: 03/12/20 11:49 Freq: Status: Active Protocol: Document 03/13/20 09:01 HH (Rec: 03/13/20 13:24 HH [email or web address]) Therapeutic Exercises Sitting Exercises finger abd/add Sitting Exercise Name against pt resistance. Side bilateral Reps/Minutes 3 secs hold x5 active wrist flexion extension Side bilateral Reps/Minutes 5 x 3 Comments for hep shoulder shrug Side bilateral Reps/Minutes 8 x3 Comments for HEP scap squeez Sitting Exercise Name scap retraction Side bilateral Reps/Minutes 8 x 3 Comments for HEP Steward/Stewardess [employer] Strengthening Sitting Exercise Name ball squeeze Reps/Minutes 3 sec hold x 5 Comments for HEP Manual Therapy Treatment Soft Tissue Mobilization Biceps Body Location distal bicep tendon Mobilization Type Sustained Pressure,Trigger Point Release Intensity/Depth Superficial Body Position Sitting Comments with passive elbow flexion extension Common Extensor Tendon Body Location surrounding area of incision site Mobilization Type Instrument Assisted,Sustained Pressure,Trigger Point Release Intensity/Depth Superficial Body Position Sitting Comments from distal to proximal direction PT-OP-T Assessment and Plan Start: 03/12/20 11:49 Freq: Status: Active Protocol: Document 03/13/20 09:01 (Rec: 03/13/20 13:24 [email or web address]) Physical Therapy Assessment Goals Four Impairment Right elbow ROM limited to 45- 122? Short Term Goal (STG) Right elbow ROM to improve to at least 20? extension and 130 ? flexion STG Duration 04/09/20 Shelter Goal (LTG) Right elbow ROM to improve to 0? extension and 140? flexion LTG Duration 05/10/20 Three Impairment Limited wrist ROM to 38? flexion and 45? extension Short Term Goal (STG) Pt to demonstrate improved R wrist flexion/extension to 60? 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 STG Duration 04/09/20 Two Impairment QuickDash score 75% Classified Ad Taker Goal (LTG) Patient will have quickDash score of <25/100 LTG Duration 05/10/20 One Impairment No HEP in place Short Term Goal (STG) Pt to be independent and compliant with an appropriate HEP STG Duration 04/09/20 Assessment Summary Assessment Pt wears wrist splint which prevent radial and ulnar deviation. Mild swelling at surgical site and ecchymosis at medial elbow. This clinic has not received post op protocol even though leading therapist already contacted surgeon office. Initiatied conservative treatment at this point with no supination, radial and ulnar deviation or active elbow flexion and extension until further notice . Provided HEP with active wrist FL/Ext, shoulder shrugs, scap squeeze, and ball squeeze. Physical Therapy Plan Next Visit Focus/Plan Next Note Type Treatment Note Next Visit Plan Passive ROM, advance per post- op protocol.
--- NOTE | 2020-03-18 15:15 | PT.OTN ---
Current Diagnoses Pain in right elbow (03/18/20) Stiffness of right elbow, not elsewhere classified (03/18/20) Lateral epicondylitis, right elbow (03/18/20) Weakness (03/18/20) Encounter for other specified surgical aftercare (03/18/20) Physical Therapy Treatment Note PT-OP-A Visit Information Start: 03/12/20 11:49 Freq: Status: Active Protocol: Document 03/18/20 14:30 DCW (Rec: 03/18/20 15:14 DCW [id number]) Out-Patient Physical Therapy Visit Information Visit Information Visit Type Treatment Note Visit Start Time 14:30 Visit Stop Time 15:15 Total Visit Minutes 45 Visit Number 3 Number of BILINGUAL INTERPRETER Visits 0 PT-OP-B Current Condition Start: 03/12/20 11:49 Freq: Status: Active Protocol: Document 03/10/20 12:00 DCW (Rec: 03/12/20 12:02 DCW [id number]) Current Condition History of Current Condition Onset Date 03/04/20 Current Complaints 6 days s/p R Lateral epicondylitis debridement and tendon repair History of Current Condition Pt is a 59 year old female presenting 6 days s/p R Lateral epicondylitis debridement and tendon repair. Pt had previously been seen at this clinic last year for assessment and treatment of tendonitis, and pt was able to return to a functional level for work, but continued to experience significant pain. A recent MRI revealed partial- thickness tears of the lateral ulnar collateral ligament and radial collateral ligament, as well as the common extensor tendon. Pt underwent surgical debridement/repair, and presents today in her post-op splint. Per orders from her surgeon, splint was removed in order to begin initiation of ROM exercises. 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 PT-OP-C Subjective Start: 03/12/20 11:49 Freq: Status: Active Protocol: Document 03/18/20 14:30 DCW (Rec: 03/18/20 15:14 DCW [id number]) OP-PT Subjective Patient Comments Patient Comments Pt notes she has been seeing improved ROM, and she is still not having much pain. Pt also brings in an updated referral from her surgeon, which states there is no specific post-op protocol. PT-OP-F Manual Assessment Start: 03/12/20 11:49 Freq: Status: Active Protocol: Document 03/10/20 12:00 DCW (Rec: 03/12/20 15:33 DCW [id number]) Manual Assessments Other Manual Assessments Other Manual Assessments Mild-moderate edema and joint effusion around right elbow. Significant joint stiffness after removal of splint. PT-OP-K Range of Motion Start: 03/12/20 11:49 Freq: Status: Active Protocol: Document 03/10/20 12:00 DCW (Rec: 03/12/20 15:33 DCW [id number]) Elbow/Forearm Range of Motion Elbow/Forearm Right Active Elbow/Forearm ROM WFL No ROM Testing Position Sitting Elbow Flexion (degrees) 122 Elbow Extension (degrees) 45 Pronation (degrees) 90 Supination (degrees) 35 Wrist Goniometric Range of Motion Wrist Right Wrist ROM WFL No Flexion Passive (degrees) 38 Extension Passive (degrees) 45 Ulnar Deviation Passive (degrees) 32 Radial Deviation Passive (degrees) 28 PT-OP-M Strength Start: 03/12/20 11:49 Freq: Status: Active Protocol: Document 03/10/20 12:00 DCW (Rec: 03/12/20 15:33 DCW [id number]) Wrist Strength Wrist Manual Muscle Testing Right Reason Not Measured Orthopedic Precautions PT-OP-Q Treatments Start: 03/12/20 11:49 Freq: Status: Active Protocol: Document 03/18/20 14:30 DCW (Rec: 03/18/20 15:14 DCW [id number]) Therapeutic Exercises Sitting Exercises 5 Sitting Exercise Name Biceps curls finger abd/add Sitting Exercise Name against pt resistance. Side bilateral Reps/Minutes 3 secs hold x5 active wrist flexion extension Side right Equipment Used 1# wrist flexion ext Sitting Exercise Name Wrist flexion/extension stretch Reps/Minutes 30 hold 4 Sitting Exercise Name Shoulder flexion Side right Resistance 1# Manual Therapy Treatment Soft Tissue Mobilization Biceps Body Location distal bicep tendon Mobilization Type Sustained Pressure,Trigger Point Release Intensity/Depth Superficial Body Position Sitting Comments with passive elbow flexion extension Common Extensor Tendon Body Location surrounding area of incision site Mobilization Type Instrument Assisted,Sustained Pressure,Trigger Point Release Intensity/Depth Superficial Body Position Sitting Comments from distal to proximal direction PT-OP-T Assessment and Plan Start: 03/12/20 11:49 Freq: Status: Active Protocol: Document 03/18/20 14:30 DCW (Rec: 03/18/20 15:14 DCW [id number]) Physical Therapy Assessment Impairments Impairments Activity Tolerance,Edema, Functional Activities, Functional Mobility,Integument ,Pain,ROM,Soft Tissue Mobility ,Strength Goals Four Impairment Right elbow ROM limited to 45- 122? Short Term Goal (STG) Right elbow ROM to improve to at least 20? extension and 130 ? flexion STG Duration 04/09/20 Clinical Researcher Goal (LTG) Right elbow ROM to improve to 0? extension and 140? flexion LTG Duration 05/10/20 Three Impairment Limited wrist ROM to 38? flexion and 45? extension Short Term Goal (STG) Pt to demonstrate improved R wrist flexion/extension to 60? 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 STG Duration 04/09/20 Two Impairment QuickDash score 75% Correction Goal (LTG) Patient will have quickDash score of <25/100 LTG Duration 05/10/20 One Impairment No HEP in place Short Term Goal (STG) Pt to be independent and compliant with an appropriate HEP STG Duration 04/09/20 Assessment Summary Assessment Minimal edema and pain at this time, good mobility and no pain with any movement except for end-range flexion. Pt tolerated gentle ROM and strengthening exercises with no complaints. Physical Therapy Plan Frequency and Duration Frequency of Treatment 2x/Week Duration of Treatment 10 weeks Plan of Care Start Date 03/10/20 Plan of Care End Date 05/19/20 Therapeutic Interventions Therapeutic Interventions Home Exercise Program,Joint Mobilizations,Manual Therapy, Patient/Caregiver Education, Self-Care/Home Management,Soft Tissue Mobilization,Taping, Therapeutic Activities, Therapeutic Exercises Modalities Cold Pack/Ice Massage,Electric Stimulation,Hot Packs, Ultrasound Next Visit Focus/Plan Next Note Type Treatment Note Next Visit Plan Passive/Active ROM, Gentle strengthening
--- NOTE | 2020-03-20 15:16 | PT.OTN ---
Current Diagnoses Pain in right elbow (03/20/20) Stiffness of right elbow, not elsewhere classified (03/20/20) Lateral epicondylitis, right elbow (03/20/20) Weakness (03/20/20) Encounter for other specified surgical aftercare (03/20/20) Physical Therapy Treatment Note PT-OP-A Visit Information Start: 03/12/20 11:49 Freq: Status: Active Protocol: Document 03/20/20 14:33 HH (Rec: 03/20/20 15:16 [id number]) Out-Patient Physical Therapy Visit Information Visit Information Visit Type Treatment Note Visit Start Time 14:32 Visit Stop Time 15:15 Total Visit Minutes 43 Visit Number 4 Number of CAN CAPPER Visits 0 PT-OP-B Current Condition Start: 03/12/20 11:49 Freq: Status: Active Protocol: Document 03/10/20 12:00 DCW (Rec: 03/12/20 12:02 DCW [id number]) Current Condition History of Current Condition Onset Date 03/04/20 Current Complaints 6 days s/p R Lateral epicondylitis debridement and tendon repair History of Current Condition Pt is a 59 year old female presenting 6 days s/p R Lateral epicondylitis debridement and tendon repair. Pt had previously been seen at this clinic last year for assessment and treatment of tendonitis, and pt was able to return to a functional level for work, but continued to experience significant pain. A recent MRI revealed partial- thickness tears of the lateral ulnar collateral ligament and radial collateral ligament, as well as the common extensor tendon. Pt underwent surgical debridement/repair, and presents today in her post-op splint. Per orders from her surgeon, splint was removed in order to begin initiation of ROM exercises. 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 PT-OP-C Subjective Start: 03/12/20 11:49 Freq: Status: Active Protocol: Document 03/20/20 14:33 HH (Rec: 03/20/20 15:16 [id number]) OP-PT Subjective Patient Comments Patient Comments My elbow got really sore today because i think i did too much yesterday. I was using carpet cleaning, did cooking and HEP so i think i overdid it. PT-OP-F Manual Assessment Start: 03/12/20 11:49 Freq: Status: Active Protocol: Document 03/10/20 12:00 DCW (Rec: 03/12/20 15:33 DCW [id number]) Manual Assessments Other Manual Assessments Other Manual Assessments Mild-moderate edema and joint effusion around right elbow. Significant joint stiffness after removal of splint. PT-OP-K Range of Motion Start: 03/12/20 11:49 Freq: Status: Active Protocol: Document 03/10/20 12:00 DCW (Rec: 03/12/20 15:33 DCW [id number]) Elbow/Forearm Range of Motion Elbow/Forearm Right Active Elbow/Forearm ROM WFL No ROM Testing Position Sitting Elbow Flexion (degrees) 122 Elbow Extension (degrees) 45 Pronation (degrees) 90 Supination (degrees) 35 Wrist Goniometric Range of Motion Wrist Right Wrist ROM WFL No Flexion Passive (degrees) 38 Extension Passive (degrees) 45 Ulnar Deviation Passive (degrees) 32 Radial Deviation Passive (degrees) 28 PT-OP-M Strength Start: 03/12/20 11:49 Freq: Status: Active Protocol: Document 03/10/20 12:00 DCW (Rec: 03/12/20 15:33 DCW [id number]) Wrist Strength Wrist Manual Muscle Testing Right Reason Not Measured Orthopedic Precautions PT-OP-Q Treatments Start: 03/12/20 11:49 Freq: Status: Active Protocol: Document 03/20/20 14:33 HH (Rec: 03/20/20 15:16 HH [id number]) Therapeutic Exercises Sitting Exercises shoulder extension Sitting Exercise Name shoulder extension with elbow extension Side right Reps/Minutes 4 mins Comments able to reach full elbow extension OH gracie Sitting Exercise Name AAROM for elbow extension from LUE Side right Reps/Minutes 4 mins Comments able to reach full elbow extension finger abd/add Sitting Exercise Name against pt resistance. Side bilateral Reps/Minutes 3 secs hold x5 active wrist flexion extension Sitting Exercise Name full flexion to neutral Side right Equipment Used 1# wrist flexion ext Sitting Exercise Name Wrist flexion/extension stretch Reps/Minutes 30 hold Manual Therapy Treatment Soft Tissue Mobilization Biceps Body Location distal bicep tendon Mobilization Type Sustained Pressure,Trigger Point Release Intensity/Depth Superficial Body Position Sitting Comments with passive elbow flexion extension Common Extensor Tendon Body Location surrounding area of incision site Mobilization Type Instrument Assisted,Sustained Pressure,Trigger Point Release Intensity/Depth Superficial Body Position Sitting Comments from distal to proximal direction PT-OP-T Assessment and Plan Start: 03/12/20 11:49 Freq: Status: Active Protocol: Document 03/20/20 14:33 HH (Rec: 03/20/20 15:16 HH [id number]) Physical Therapy Assessment Goals Four Impairment Right elbow ROM limited to 45- 122? Short Term Goal (STG) Right elbow ROM to improve to at least 20? extension and 130 ? flexion STG Duration 04/09/20 Correction Goal (LTG) Right elbow ROM to improve to 0? extension and 140? flexion LTG Duration 05/10/20 Three Impairment Limited wrist ROM to 38? flexion and 45? extension Short Term Goal (STG) Pt to demonstrate improved R wrist flexion/extension to 60? 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 STG Duration 04/09/20 Two Impairment QuickDash score 75% Correction Goal (LTG) Patient will have quickDash score of <25/100 LTG Duration 05/10/20 One Impairment No HEP in place Short Term Goal (STG) Pt to be independent and compliant with an appropriate HEP STG Duration 04/09/20 Assessment Summary Assessment Pt has a flare up today and she believed it is because of her extensive use of gripping motion from yesterday cleaning activities and work. Spent time educating pt DOMS and following post surgical protocal to promote recovery. Had pt to do gracie exercises to assist elbow extension who was able to reach full elbow ext. Pt gary tx well. Physical Therapy Plan Next Visit Focus/Plan Next Note Type Treatment Note Next Visit Plan Passive/Active ROM, Gentle strengthening
--- NOTE | 2020-03-25 11:12 | PT.OTN ---
Current Diagnoses Pain in right elbow (03/25/20) Stiffness of right elbow, not elsewhere classified (03/25/20) Lateral epicondylitis, right elbow (03/25/20) Weakness (03/25/20) Encounter for other specified surgical aftercare (03/25/20) Physical Therapy Treatment Note PT-OP-A Visit Information Start: 03/12/20 11:49 Freq: Status: Active Protocol: Document 03/25/20 10:30 DCW (Rec: 03/25/20 11:12 DCW [id number]) Out-Patient Physical Therapy Visit Information Visit Information Visit Type Treatment Note Visit Start Time 10:30 Visit Stop Time 11:15 Total Visit Minutes 45 Visit Number 5 Number of MOBILE TESTER Visits 0 PT-OP-B Current Condition Start: 03/12/20 11:49 Freq: Status: Active Protocol: Document 03/10/20 12:00 DCW (Rec: 03/12/20 12:02 DCW [id number]) Current Condition History of Current Condition Onset Date 03/04/20 Current Complaints 6 days s/p R Lateral epicondylitis debridement and tendon repair History of Current Condition Pt is a 59 year old female presenting 6 days s/p R Lateral epicondylitis debridement and tendon repair. Pt had previously been seen at this clinic last year for assessment and treatment of tendonitis, and pt was able to return to a functional level for work, but continued to experience significant pain. A recent MRI revealed partial- thickness tears of the lateral ulnar collateral ligament and radial collateral ligament, as well as the common extensor tendon. Pt underwent surgical debridement/repair, and presents today in her post-op splint. Per orders from her surgeon, splint was removed in order to begin initiation of ROM exercises. 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 PT-OP-C Subjective Start: 03/12/20 11:49 Freq: Status: Active Protocol: Document 03/25/20 10:30 DCW (Rec: 03/25/20 11:12 DCW [id number]) OP-PT Subjective Patient Comments Patient Comments Pt reports yesterday was a really good day, like it just snapped into a new mode after a few days that weren't so good. PT-OP-F Manual Assessment Start: 03/12/20 11:49 Freq: Status: Active Protocol: Document 03/10/20 12:00 DCW (Rec: 03/12/20 15:33 DCW [id number]) Manual Assessments Other Manual Assessments Other Manual Assessments Mild-moderate edema and joint effusion around right elbow. Significant joint stiffness after removal of splint. PT-OP-K Range of Motion Start: 03/12/20 11:49 Freq: Status: Active Protocol: Document 03/10/20 12:00 DCW (Rec: 03/12/20 15:33 DCW [id number]) Elbow/Forearm Range of Motion Elbow/Forearm Right Active Elbow/Forearm ROM WFL No ROM Testing Position Sitting Elbow Flexion (degrees) 122 Elbow Extension (degrees) 45 Pronation (degrees) 90 Supination (degrees) 35 Wrist Goniometric Range of Motion Wrist Right Wrist ROM WFL No Flexion Passive (degrees) 38 Extension Passive (degrees) 45 Ulnar Deviation Passive (degrees) 32 Radial Deviation Passive (degrees) 28 PT-OP-M Strength Start: 03/12/20 11:49 Freq: Status: Active Protocol: Document 03/10/20 12:00 DCW (Rec: 03/12/20 15:33 DCW [id number]) Wrist Strength Wrist Manual Muscle Testing Right Reason Not Measured Orthopedic Precautions PT-OP-Q Treatments Start: 03/12/20 11:49 Freq: Status: Active Protocol: Document 03/25/20 10:30 DCW (Rec: 03/25/20 11:12 DCW [id number]) Therapeutic Exercises Sitting Exercises shoulder extension Sitting Exercise Name shoulder extension with elbow extension Side right Reps/Minutes 4 mins Comments able to reach full elbow extension OH gracie Sitting Exercise Name AAROM for elbow extension from LUE Side right Reps/Minutes 4 mins Comments able to reach full elbow extension 5 Sitting Exercise Name Biceps curls Resistance 2# active wrist flexion extension Sitting Exercise Name full flexion to neutral Side right Equipment Used 2# wrist flexion ext Sitting Exercise Name Wrist flexion/extension stretch Reps/Minutes 30 hold 4 Sitting Exercise Name Shoulder flexion Side right Resistance 2# Assistant Director Strengthening Sitting Exercise Name Theraputty Side right Resistance Yellow Comments Finger flex/ext Supination/Pronation Sitting Exercise Name Pronation/Supination Side right Resistance 1# Manual Therapy Treatment Soft Tissue Mobilization Incision Body Location Lat Epicondyle scar mobs Mobilization Type Cross-Friction Biceps Body Location distal bicep tendon Mobilization Type Sustained Pressure,Trigger Point Release Intensity/Depth Superficial Body Position Sitting Comments with passive elbow flexion extension Common Extensor Tendon Body Location surrounding area of incision site Mobilization Type Instrument Assisted,Sustained Pressure,Trigger Point Release Intensity/Depth Superficial Body Position Sitting Comments from distal to proximal direction PT-OP-T Assessment and Plan Start: 03/12/20 11:49 Freq: Status: Active Protocol: Document 03/25/20 10:30 DCW (Rec: 03/25/20 11:12 DCW [id number]) Physical Therapy Assessment Impairments Impairments Activity Tolerance,Edema, Functional Activities, Functional Mobility,Integument ,Pain,ROM,Soft Tissue Mobility ,Strength Goals Four Impairment Right elbow ROM limited to 45- 122? Short Term Goal (STG) Right elbow ROM to improve to at least 20? extension and 130 ? flexion STG Duration 04/09/20 Fdc Goal (LTG) Right elbow ROM to improve to 0? extension and 140? flexion LTG Duration 05/10/20 Three Impairment Limited wrist ROM to 38? flexion and 45? extension Short Term Goal (STG) Pt to demonstrate improved R wrist flexion/extension to 60? 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 STG Duration 04/09/20 Two Impairment QuickDash score 75% Plumber Gasfitter Goal (LTG) Patient will have quickDash score of <25/100 LTG Duration 05/10/20 One Impairment No HEP in place Short Term Goal (STG) Pt to be independent and compliant with an appropriate HEP STG Duration 04/09/20 Assessment Summary Assessment Pt continuing to improve, strength and ROM getting better, pt having much better pain control. Pt moving later this week, which may present some problems. Physical Therapy Plan Frequency and Duration Frequency of Treatment 2x/Week Duration of Treatment 10 weeks Plan of Care Start Date 03/10/20 Plan of Care End Date 05/19/20 Therapeutic Interventions Therapeutic Interventions Home Exercise Program,Joint Mobilizations,Manual Therapy, Patient/Caregiver Education, Self-Care/Home Management,Soft Tissue Mobilization,Taping, Therapeutic Activities, Therapeutic Exercises Modalities Cold Pack/Ice Massage,Electric Stimulation,Hot Packs, Ultrasound Next Visit Focus/Plan Next Note Type Treatment Note Next Visit Plan Passive/Active ROM, Gentle strengthening
--- NOTE | 2020-03-31 15:14 | PT.OTN ---
Current Diagnoses Pain in right elbow (03/31/20) Stiffness of right elbow, not elsewhere classified (03/31/20) Lateral epicondylitis, right elbow (03/31/20) Weakness (03/31/20) Encounter for other specified surgical aftercare (03/31/20) Physical Therapy Treatment Note PT-OP-A Visit Information Start: 03/12/20 11:49 Freq: Status: Active Protocol: Document 03/31/20 14:30 DCW (Rec: 03/31/20 15:13 DCW [id number]) Out-Patient Physical Therapy Visit Information Visit Information Visit Type Treatment Note Visit Start Time 14:30 Visit Stop Time 15:15 Total Visit Minutes 45 Visit Number 6 Number of WASHERY BOSS Visits 0 PT-OP-B Current Condition Start: 03/12/20 11:49 Freq: Status: Active Protocol: Document 03/10/20 12:00 DCW (Rec: 03/12/20 12:02 DCW [id number]) Current Condition History of Current Condition Onset Date 03/04/20 Current Complaints 6 days s/p R Lateral epicondylitis debridement and tendon repair History of Current Condition Pt is a 59 year old female presenting 6 days s/p R Lateral epicondylitis debridement and tendon repair. Pt had previously been seen at this clinic last year for assessment and treatment of tendonitis, and pt was able to return to a functional level for work, but continued to experience significant pain. A recent MRI revealed partial- thickness tears of the lateral ulnar collateral ligament and radial collateral ligament, as well as the common extensor tendon. Pt underwent surgical debridement/repair, and presents today in her post-op splint. Per orders from her surgeon, splint was removed in order to begin initiation of ROM exercises. 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 PT-OP-C Subjective Start: 03/12/20 11:49 Freq: Status: Active Protocol: Document 03/31/20 14:30 DCW (Rec: 03/31/20 15:13 DCW [id number]) OP-PT Subjective Patient Comments Patient Comments Pt reports overall, she feels like she is doing well, but she smacked it really hard on a slab of granite yesterday , and it was very sore. PT-OP-F Manual Assessment Start: 03/12/20 11:49 Freq: Status: Active Protocol: Document 03/10/20 12:00 DCW (Rec: 03/12/20 15:33 DCW [id number]) Manual Assessments Other Manual Assessments Other Manual Assessments Mild-moderate edema and joint effusion around right elbow. Significant joint stiffness after removal of splint. PT-OP-K Range of Motion Start: 03/12/20 11:49 Freq: Status: Active Protocol: Document 03/10/20 12:00 DCW (Rec: 03/12/20 15:33 DCW [id number]) Elbow/Forearm Range of Motion Elbow/Forearm Right Active Elbow/Forearm ROM WFL No ROM Testing Position Sitting Elbow Flexion (degrees) 122 Elbow Extension (degrees) 45 Pronation (degrees) 90 Supination (degrees) 35 Wrist Goniometric Range of Motion Wrist Right Wrist ROM WFL No Flexion Passive (degrees) 38 Extension Passive (degrees) 45 Ulnar Deviation Passive (degrees) 32 Radial Deviation Passive (degrees) 28 PT-OP-M Strength Start: 03/12/20 11:49 Freq: Status: Active Protocol: Document 03/10/20 12:00 DCW (Rec: 03/12/20 15:33 DCW [id number]) Wrist Strength Wrist Manual Muscle Testing Right Reason Not Measured Orthopedic Precautions PT-OP-Q Treatments Start: 03/12/20 11:49 Freq: Status: Active Protocol: Document 03/31/20 14:30 DCW (Rec: 03/31/20 15:13 DCW [id number]) Therapeutic Exercises Sitting Exercises 5 Sitting Exercise Name Biceps curls Resistance 2#->3# active wrist flexion extension Sitting Exercise Name flexion/extension Side right Equipment Used 2# ext/3# flex active pron and sup Sitting Exercise Name Monument Mason 1/2 [address] up Hammer Side right Manual Therapy Treatment Soft Tissue Mobilization Incision Body Location Lat Epicondyle scar mobs Mobilization Type Cross-Friction Biceps Body Location distal bicep tendon Mobilization Type Sustained Pressure,Trigger Point Release Intensity/Depth Superficial Body Position Sitting Comments with passive elbow flexion extension Common Extensor Tendon Body Location surrounding area of incision site Mobilization Type Instrument Assisted,Sustained Pressure,Trigger Point Release Intensity/Depth Superficial Body Position Sitting Comments from distal to proximal direction PT-OP-T Assessment and Plan Start: 03/12/20 11:49 Freq: Status: Active Protocol: Document 03/31/20 14:30 DCW (Rec: 03/31/20 15:13 DCW [id number]) Physical Therapy Assessment Impairments Impairments Activity Tolerance,Edema, Functional Activities, Functional Mobility,Integument ,Pain,ROM,Soft Tissue Mobility ,Strength Goals Four Impairment Right elbow ROM limited to 45- 122? Short Term Goal (STG) Right elbow ROM to improve to at least 20? extension and 130 ? flexion STG Duration 04/09/20 Penitentiary Goal (LTG) Right elbow ROM to improve to 0? extension and 140? flexion LTG Duration 05/10/20 Three Impairment Limited wrist ROM to 38? flexion and 45? extension Short Term Goal (STG) Pt to demonstrate improved R wrist flexion/extension to 60? 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 STG Duration 04/09/20 Two Impairment QuickDash score 75% Penitentiary Goal (LTG) Patient will have quickDash score of <25/100 LTG Duration 05/10/20 One Impairment No HEP in place Short Term Goal (STG) Pt to be independent and compliant with an appropriate HEP STG Duration 04/09/20 Assessment Summary Assessment Pt improved with ROM, pain control, and scar mobility, continued to be limited secondary to strength. Physical Therapy Plan Frequency and Duration Frequency of Treatment 2x/Week Duration of Treatment 10 weeks Plan of Care Start Date 03/10/20 Plan of Care End Date 05/19/20 Therapeutic Interventions Therapeutic Interventions Home Exercise Program,Joint Mobilizations,Manual Therapy, Patient/Caregiver Education, Self-Care/Home Management,Soft Tissue Mobilization,Taping, Therapeutic Activities, Therapeutic Exercises Modalities Cold Pack/Ice Massage,Electric Stimulation,Hot Packs, Ultrasound Next Visit Focus/Plan Next Note Type Treatment Note Next Visit Plan Passive/Active ROM, Gentle strengthening
--- NOTE | 2020-04-07 12:02 | PT.OTN ---
Current Diagnoses Pain in right elbow (04/07/20) Stiffness of right elbow, not elsewhere classified (04/07/20) Lateral epicondylitis, right elbow (04/07/20) Weakness (04/07/20) Encounter for other specified surgical aftercare (04/07/20) Physical Therapy Treatment Note PT-OP-A Visit Information Start: 03/12/20 11:49 Freq: Status: Active Protocol: Document 04/07/20 11:15 DCW (Rec: 04/07/20 12:02 DCW [id number]) Out-Patient Physical Therapy Visit Information Visit Information Visit Type Treatment Note Visit Start Time 11:15 Visit Stop Time 12:00 Total Visit Minutes 45 Visit Number 7 Number of SHEET METAL ASSEMBLER AND RIVETER Visits 0 Evaluation Information Evaluation Date 03/10/20 PT-OP-B Current Condition Start: 03/12/20 11:49 Freq: Status: Active Protocol: Document 03/10/20 12:00 DCW (Rec: 03/12/20 12:02 DCW [id number]) Current Condition History of Current Condition Onset Date 03/04/20 Current Complaints 6 days s/p R Lateral epicondylitis debridement and tendon repair History of Current Condition Pt is a 59 year old female presenting 6 days s/p R Lateral epicondylitis debridement and tendon repair. Pt had previously been seen at this clinic last year for assessment and treatment of tendonitis, and pt was able to return to a functional level for work, but continued to experience significant pain. A recent MRI revealed partial- thickness tears of the lateral ulnar collateral ligament and radial collateral ligament, as well as the common extensor tendon. Pt underwent surgical debridement/repair, and presents today in her post-op splint. Per orders from her surgeon, splint was removed in order to begin initiation of ROM exercises. 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 PT-OP-C Subjective Start: 03/12/20 11:49 Freq: Status: Active Protocol: Document 04/07/20 11:15 DCW (Rec: 04/07/20 12:02 DCW [id number]) OP-PT Subjective Patient Comments Patient Comments The only time is really bugs me is at night, when it is just in one position for an extended period of time. PT-OP-F Manual Assessment Start: 03/12/20 11:49 Freq: Status: Active Protocol: Document 03/10/20 12:00 DCW (Rec: 03/12/20 15:33 DCW [id number]) Manual Assessments Other Manual Assessments Other Manual Assessments Mild-moderate edema and joint effusion around right elbow. Significant joint stiffness after removal of splint. PT-OP-K Range of Motion Start: 03/12/20 11:49 Freq: Status: Active Protocol: Document 03/10/20 12:00 DCW (Rec: 03/12/20 15:33 DCW [id number]) Elbow/Forearm Range of Motion Elbow/Forearm Right Active Elbow/Forearm ROM WFL No ROM Testing Position Sitting Elbow Flexion (degrees) 122 Elbow Extension (degrees) 45 Pronation (degrees) 90 Supination (degrees) 35 Wrist Goniometric Range of Motion Wrist Right Wrist ROM WFL No Flexion Passive (degrees) 38 Extension Passive (degrees) 45 Ulnar Deviation Passive (degrees) 32 Radial Deviation Passive (degrees) 28 PT-OP-M Strength Start: 03/12/20 11:49 Freq: Status: Active Protocol: Document 03/10/20 12:00 DCW (Rec: 03/12/20 15:33 DCW [id number]) Wrist Strength Wrist Manual Muscle Testing Right Reason Not Measured Orthopedic Precautions PT-OP-Q Treatments Start: 03/12/20 11:49 Freq: Status: Active Protocol: Document 04/07/20 11:15 DCW (Rec: 04/07/20 12:02 DCW [id number]) Therapeutic Exercises Sitting Exercises 5 Sitting Exercise Name Biceps curls Resistance 3# active wrist flexion extension Sitting Exercise Name flexion/extension Side right Equipment Used 3# active pron and sup Sitting Exercise Name Mat Linker 1/[address] up Hammer Side right wrist flexion ext Sitting Exercise Name Wrist flexion/extension stretch Reps/Minutes 30 hold 3 Sitting Exercise Name quick release ball toss in pronation Side right Resistance tennis ball Standing Exercises 1 Standing Exercise Name Standing tennis ball catch Side right Manual Therapy Treatment Soft Tissue Mobilization Incision Body Location Lat Epicondyle scar mobs Mobilization Type Cross-Friction Biceps Body Location distal bicep tendon Mobilization Type Sustained Pressure,Trigger Point Release Intensity/Depth Superficial Body Position Sitting Comments with passive elbow flexion extension Common Extensor Tendon Body Location surrounding area of incision site Mobilization Type Instrument Assisted,Sustained Pressure,Trigger Point Release Intensity/Depth Superficial Body Position Sitting Comments from distal to proximal direction PT-OP-T Assessment and Plan Start: 03/12/20 11:49 Freq: Status: Active Protocol: Document 04/07/20 11:15 DCW (Rec: 04/07/20 12:02 DCW [id number]) Physical Therapy Assessment Impairments Impairments Activity Tolerance,Edema, Functional Activities, Functional Mobility,Integument ,Pain,ROM,Soft Tissue Mobility ,Strength Goals Four Impairment Right elbow ROM limited to 45- 122? Short Term Goal (STG) Right elbow ROM to improve to at least 20? extension and 130 ? flexion STG Duration 04/09/20 Prison Goal (LTG) Right elbow ROM to improve to 0? extension and 140? flexion LTG Duration 05/10/20 Three Impairment Limited wrist ROM to 38? flexion and 45? extension Short Term Goal (STG) Pt to demonstrate improved R wrist flexion/extension to 60? 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 STG Duration 04/09/20 Two Impairment QuickDash score 75% Print Project Manager Goal (LTG) Patient will have quickDash score of <25/100 LTG Duration 05/10/20 One Impairment No HEP in place Short Term Goal (STG) Pt to be independent and compliant with an appropriate HEP STG Duration 04/09/20 Assessment Summary Assessment Pt tolerated treatment well today, fatigued quickly with new activities involving tennis ball catching, struggled with quick reflexive movements, but was able to participate with no elbow pain . Physical Therapy Plan Frequency and Duration Frequency of Treatment 2x/Week Duration of Treatment 10 weeks Plan of Care Start Date 03/10/20 Plan of Care End Date 05/19/20 Therapeutic Interventions Therapeutic Interventions Home Exercise Program,Joint Mobilizations,Manual Therapy, Patient/Caregiver Education, Self-Care/Home Management,Soft Tissue Mobilization,Taping, Therapeutic Activities, Therapeutic Exercises Modalities Cold Pack/Ice Massage,Electric Stimulation,Hot Packs, Ultrasound Next Visit Focus/Plan Next Note Type Treatment Note Next Visit Plan Passive/Active ROM, Gentle strengthening
--- NOTE | 2020-04-09 11:59 | PT.OTN ---
Current Diagnoses Pain in right elbow (04/09/20) Stiffness of right elbow, not elsewhere classified (04/09/20) Lateral epicondylitis, right elbow (04/09/20) Weakness (04/09/20) Encounter for other specified surgical aftercare (04/09/20) Physical Therapy Treatment Note PT-OP-A Visit Information Start: 03/12/20 11:49 Freq: Status: Active Protocol: Document 04/09/20 11:15 DCW (Rec: 04/09/20 11:59 DCW [id number]) Out-Patient Physical Therapy Visit Information Visit Information Visit Type Treatment Note Visit Start Time 11:15 Visit Stop Time 12:00 Total Visit Minutes 45 Visit Number 8 Number of MEDICAL CLAIMS MANAGER Visits 0 Evaluation Information Evaluation Date 03/10/20 PT-OP-B Current Condition Start: 03/12/20 11:49 Freq: Status: Active Protocol: Document 03/10/20 12:00 DCW (Rec: 03/12/20 12:02 DCW [id number]) Current Condition History of Current Condition Onset Date 03/04/20 Current Complaints 6 days s/p R Lateral epicondylitis debridement and tendon repair History of Current Condition Pt is a 59 year old female presenting 6 days s/p R Lateral epicondylitis debridement and tendon repair. Pt had previously been seen at this clinic last year for assessment and treatment of tendonitis, and pt was able to return to a functional level for work, but continued to experience significant pain. A recent MRI revealed partial- thickness tears of the lateral ulnar collateral ligament and radial collateral ligament, as well as the common extensor tendon. Pt underwent surgical debridement/repair, and presents today in her post-op splint. Per orders from her surgeon, splint was removed in order to begin initiation of ROM exercises. 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 PT-OP-C Subjective Start: 03/12/20 11:49 Freq: Status: Active Protocol: Document 04/09/20 11:15 DCW (Rec: 04/09/20 11:59 DCW [id number]) OP-PT Subjective Patient Comments Patient Comments Pt notes she has been practicing with the tennis ball toss, but she fatigues quickly. PT-OP-F Manual Assessment Start: 03/12/20 11:49 Freq: Status: Active Protocol: Document 03/10/20 12:00 DCW (Rec: 03/12/20 15:33 DCW [id number]) Manual Assessments Other Manual Assessments Other Manual Assessments Mild-moderate edema and joint effusion around right elbow. Significant joint stiffness after removal of splint. PT-OP-K Range of Motion Start: 03/12/20 11:49 Freq: Status: Active Protocol: Document 03/10/20 12:00 DCW (Rec: 03/12/20 15:33 DCW [id number]) Elbow/Forearm Range of Motion Elbow/Forearm Right Active Elbow/Forearm ROM WFL No ROM Testing Position Sitting Elbow Flexion (degrees) 122 Elbow Extension (degrees) 45 Pronation (degrees) 90 Supination (degrees) 35 Wrist Goniometric Range of Motion Wrist Right Wrist ROM WFL No Flexion Passive (degrees) 38 Extension Passive (degrees) 45 Ulnar Deviation Passive (degrees) 32 Radial Deviation Passive (degrees) 28 PT-OP-M Strength Start: 03/12/20 11:49 Freq: Status: Active Protocol: Document 03/10/20 12:00 DCW (Rec: 03/12/20 15:33 DCW [id number]) Wrist Strength Wrist Manual Muscle Testing Right Reason Not Measured Orthopedic Precautions PT-OP-Q Treatments Start: 03/12/20 11:49 Freq: Status: Active Protocol: Document 04/09/20 11:15 DCW (Rec: 04/09/20 11:59 DCW [id number]) Therapeutic Exercises Sitting Exercises 5 Sitting Exercise Name Biceps curls Resistance 4# active wrist flexion extension Sitting Exercise Name flexion Side right Equipment Used 4# active pron and sup Sitting Exercise Name Cargo Router 3/4 way down Hammer Side right 3 Sitting Exercise Name quick release ball toss in pronation Side right Resistance tennis ball Standing Exercises 1 Standing Exercise Name Standing tennis ball catch Side right Other Exercises 1 Other Exercise Name Resisted UE lateral walk along rail Resistance Yellow Equipment Used T-band Manual Therapy Treatment Soft Tissue Mobilization Incision Body Location Lat Epicondyle scar mobs Mobilization Type Cross-Friction Biceps Body Location distal bicep tendon Mobilization Type Sustained Pressure,Trigger Point Release Intensity/Depth Superficial Body Position Sitting Comments with passive elbow flexion extension PT-OP-T Assessment and Plan Start: 03/12/20 11:49 Freq: Status: Active Protocol: Document 04/09/20 11:15 DCW (Rec: 04/09/20 11:59 DCW [id number]) Physical Therapy Assessment Impairments Impairments Activity Tolerance,Edema, Functional Activities, Functional Mobility,Integument ,Pain,ROM,Soft Tissue Mobility ,Strength Goals Four Impairment Right elbow ROM limited to 45- 122? Short Term Goal (STG) Right elbow ROM to improve to at least 20? extension and 130 ? flexion STG Duration Met - 4?-145? [facility]ci Goal (LTG) Right elbow ROM to improve to 0? extension and 140? flexion LTG Duration 05/10/20 Three Impairment Limited wrist ROM to 38? flexion and 45? extension Short Term Goal (STG) Pt to demonstrate improved R wrist flexion/extension to 60? 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 STG Duration 05/10/20 - Improving (Ext 55?, Flex 70?) Two Impairment QuickDash score 75% Apartment Rental Clerk Goal (LTG) Patient will have quickDash score of <25/100 LTG Duration 05/10/20 One Impairment No HEP in place Short Term Goal (STG) Pt to be independent and compliant with an appropriate HEP STG Duration Met Assessment Summary Assessment Pt continuing to progress well , much less pain or discomfort with any activities. Pt notes just general stiffness and feeling like her right hand is on a delay. Physical Therapy Plan Frequency and Duration Frequency of Treatment 2x/Week Duration of Treatment 10 weeks Plan of Care Start Date 03/10/20 Plan of Care End Date 05/19/20 Therapeutic Interventions Therapeutic Interventions Home Exercise Program,Joint Mobilizations,Manual Therapy, Patient/Caregiver Education, Self-Care/Home Management,Soft Tissue Mobilization,Taping, Therapeutic Activities, Therapeutic Exercises Modalities Cold Pack/Ice Massage,Electric Stimulation,Hot Packs, Ultrasound Next Visit Focus/Plan Next Note Type Treatment Note Next Visit Plan Passive/Active ROM, Gentle strengthening
--- NOTE | 2020-04-14 11:14 | PT.OTN ---
Current Diagnoses Pain in right elbow (04/14/20) Stiffness of right elbow, not elsewhere classified (04/14/20) Lateral epicondylitis, right elbow (04/14/20) Weakness (04/14/20) Encounter for other specified surgical aftercare (04/14/20) Physical Therapy Treatment Note PT-OP-A Visit Information Start: 03/12/20 11:49 Freq: Status: Active Protocol: Document 04/14/20 10:30 DCW (Rec: 04/14/20 11:14 DCW [id number]) Out-Patient Physical Therapy Visit Information Visit Information Visit Type Treatment Note Visit Start Time 10:30 Visit Stop Time 11:15 Total Visit Minutes 45 Visit Number 9 Number of KIESELGUHR REGENERATOR OPERATOR Visits 0 Evaluation Information Evaluation Date 03/10/20 PT-OP-B Current Condition Start: 03/12/20 11:49 Freq: Status: Active Protocol: Document 03/10/20 12:00 DCW (Rec: 03/12/20 12:02 DCW [id number]) Current Condition History of Current Condition Onset Date 03/04/20 Current Complaints 6 days s/p R Lateral epicondylitis debridement and tendon repair History of Current Condition Pt is a 59 year old female presenting 6 days s/p R Lateral epicondylitis debridement and tendon repair. Pt had previously been seen at this clinic last year for assessment and treatment of tendonitis, and pt was able to return to a functional level for work, but continued to experience significant pain. A recent MRI revealed partial- thickness tears of the lateral ulnar collateral ligament and radial collateral ligament, as well as the common extensor tendon. Pt underwent surgical debridement/repair, and presents today in her post-op splint. Per orders from her surgeon, splint was removed in order to begin initiation of ROM exercises. 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 PT-OP-C Subjective Start: 03/12/20 11:49 Freq: Status: Active Protocol: Document 04/14/20 10:30 DCW (Rec: 04/14/20 11:14 DCW [id number]) OP-PT Subjective Patient Comments Patient Comments Pt reports she has been feeling much better at night. PT-OP-F Manual Assessment Start: 03/12/20 11:49 Freq: Status: Active Protocol: Document 03/10/20 12:00 DCW (Rec: 03/12/20 15:33 DCW [id number]) Manual Assessments Other Manual Assessments Other Manual Assessments Mild-moderate edema and joint effusion around right elbow. Significant joint stiffness after removal of splint. PT-OP-K Range of Motion Start: 03/12/20 11:49 Freq: Status: Active Protocol: Document 03/10/20 12:00 DCW (Rec: 03/12/20 15:33 DCW [id number]) Elbow/Forearm Range of Motion Elbow/Forearm Right Active Elbow/Forearm ROM WFL No ROM Testing Position Sitting Elbow Flexion (degrees) 122 Elbow Extension (degrees) 45 Pronation (degrees) 90 Supination (degrees) 35 Wrist Goniometric Range of Motion Wrist Right Wrist ROM WFL No Flexion Passive (degrees) 38 Extension Passive (degrees) 45 Ulnar Deviation Passive (degrees) 32 Radial Deviation Passive (degrees) 28 PT-OP-M Strength Start: 03/12/20 11:49 Freq: Status: Active Protocol: Document 03/10/20 12:00 DCW (Rec: 03/12/20 15:33 DCW [id number]) Wrist Strength Wrist Manual Muscle Testing Right Reason Not Measured Orthopedic Precautions PT-OP-Q Treatments Start: 03/12/20 11:49 Freq: Status: Active Protocol: Document 04/14/20 10:30 DCW (Rec: 04/14/20 11:14 DCW [id number]) Therapeutic Exercises Prone Exercises 1 Prone Exercise Name Prone towel catch Side right Sidelying Exercises 1 Sidelying Exercise Name External Rotation Side right Resistance 4# Sitting Exercises 5 Sitting Exercise Name Biceps curls Side right Resistance 4# active pron and sup Sitting Exercise Name Windows Vmware Engineer 3/4 way down Hammer Side right 4 Sitting Exercise Name Overhead Press Side bilateral Resistance 4# 3 Sitting Exercise Name quick release ball toss in pronation Side right Resistance tennis ball Standing Exercises 1 Standing Exercise Name Standing tennis ball catch Side right Internal Rotation Standing Exercise Name Shoulder IR Side right Resistance Lv 2 Equipment Used T-band External Rotation Standing Exercise Name Shoulder ER Side right Resistance Lv 2 Equipment Used T-band Manual Therapy Treatment Soft Tissue Mobilization Incision Body Location Lat Epicondyle scar mobs Mobilization Type Cross-Friction Biceps Body Location distal bicep tendon Mobilization Type Sustained Pressure,Trigger Point Release Intensity/Depth Superficial Body Position Sitting Comments with passive elbow flexion extension PT-OP-T Assessment and Plan Start: 03/12/20 11:49 Freq: Status: Active Protocol: Document 04/14/20 10:30 DCW (Rec: 04/14/20 11:14 DCW [id number]) Physical Therapy Assessment Impairments Impairments Activity Tolerance,Edema, Functional Activities, Functional Mobility,Integument ,Pain,ROM,Soft Tissue Mobility ,Strength Goals Four Impairment Right elbow ROM limited to 45- 122? Short Term Goal (STG) Right elbow ROM to improve to at least 20? extension and 130 ? flexion STG Duration Met - 4?-145? Kosher Sealer Goal (LTG) Right elbow ROM to improve to 0? extension and 140? flexion LTG Duration 05/10/20 Three Impairment Limited wrist ROM to 38? flexion and 45? extension Short Term Goal (STG) Pt to demonstrate improved R wrist flexion/extension to 60? 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 STG Duration 05/10/20 - Improving (Ext 55?, Flex 70?) Two Impairment QuickDash score 75% Kosher Sealer Goal (LTG) Patient will have quickDash score of <25/100 LTG Duration 05/10/20 One Impairment No HEP in place Short Term Goal (STG) Pt to be independent and compliant with an appropriate HEP STG Duration Met Assessment Summary Assessment Pt tolerated addition of new exercises very well, is not having pain with any activities, just weakness and fatigue. Physical Therapy Plan Frequency and Duration Frequency of Treatment 2x/Week Duration of Treatment 10 weeks Plan of Care Start Date 03/10/20 Plan of Care End Date 05/19/20 Therapeutic Interventions Therapeutic Interventions Home Exercise Program,Joint Mobilizations,Manual Therapy, Patient/Caregiver Education, Self-Care/Home Management,Soft Tissue Mobilization,Taping, Therapeutic Activities, Therapeutic Exercises Modalities Cold Pack/Ice Massage,Electric Stimulation,Hot Packs, Ultrasound Next Visit Focus/Plan Next Note Type Treatment Note Next Visit Plan Passive/Active ROM, Gentle strengthening
--- NOTE | 2020-04-16 11:14 | PT.OTN ---
Current Diagnoses Pain in right elbow (04/16/20) Stiffness of right elbow, not elsewhere classified (04/16/20) Lateral epicondylitis, right elbow (04/16/20) Weakness (04/16/20) Encounter for other specified surgical aftercare (04/16/20) Physical Therapy Treatment Note PT-OP-A Visit Information Start: 03/12/20 11:49 Freq: Status: Active Protocol: Document 04/16/20 10:30 DCW (Rec: 04/16/20 11:13 DCW [id number]) Out-Patient Physical Therapy Visit Information Visit Information Visit Type Treatment Note Visit Start Time 10:30 Visit Stop Time 11:15 Total Visit Minutes 45 Visit Number 10 Number of EMAIL MARKETING COORDINATOR Visits 0 Evaluation Information Evaluation Date 03/10/20 PT-OP-B Current Condition Start: 03/12/20 11:49 Freq: Status: Active Protocol: Document 03/10/20 12:00 DCW (Rec: 03/12/20 12:02 DCW [id number]) Current Condition History of Current Condition Onset Date 03/04/20 Current Complaints 6 days s/p R Lateral epicondylitis debridement and tendon repair History of Current Condition Pt is a 59 year old female presenting 6 days s/p R Lateral epicondylitis debridement and tendon repair. Pt had previously been seen at this clinic last year for assessment and treatment of tendonitis, and pt was able to return to a functional level for work, but continued to experience significant pain. A recent MRI revealed partial- thickness tears of the lateral ulnar collateral ligament and radial collateral ligament, as well as the common extensor tendon. Pt underwent surgical debridement/repair, and presents today in her post-op splint. Per orders from her surgeon, splint was removed in order to begin initiation of ROM exercises. 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 PT-OP-C Subjective Start: 03/12/20 11:49 Freq: Status: Active Protocol: Document 04/16/20 10:30 DCW (Rec: 04/16/20 11:13 DCW [id number]) OP-PT Subjective Patient Comments Patient Comments Pt feeling pretty well today. PT-OP-F Manual Assessment Start: 03/12/20 11:49 Freq: Status: Active Protocol: Document 03/10/20 12:00 DCW (Rec: 03/12/20 15:33 DCW [id number]) Manual Assessments Other Manual Assessments Other Manual Assessments Mild-moderate edema and joint effusion around right elbow. Significant joint stiffness after removal of splint. PT-OP-K Range of Motion Start: 03/12/20 11:49 Freq: Status: Active Protocol: Document 03/10/20 12:00 DCW (Rec: 03/12/20 15:33 DCW [id number]) Elbow/Forearm Range of Motion Elbow/Forearm Right Active Elbow/Forearm ROM WFL No ROM Testing Position Sitting Elbow Flexion (degrees) 122 Elbow Extension (degrees) 45 Pronation (degrees) 90 Supination (degrees) 35 Wrist Goniometric Range of Motion Wrist Right Wrist ROM WFL No Flexion Passive (degrees) 38 Extension Passive (degrees) 45 Ulnar Deviation Passive (degrees) 32 Radial Deviation Passive (degrees) 28 PT-OP-M Strength Start: 03/12/20 11:49 Freq: Status: Active Protocol: Document 03/10/20 12:00 DCW (Rec: 03/12/20 15:33 DCW [id number]) Wrist Strength Wrist Manual Muscle Testing Right Reason Not Measured Orthopedic Precautions PT-OP-Q Treatments Start: 03/12/20 11:49 Freq: Status: Active Protocol: Document 04/16/20 10:30 DCW (Rec: 04/16/20 11:13 DCW [id number]) Therapeutic Exercises Prone Exercises 1 Prone Exercise Name Prone towel catch Side right Sitting Exercises 5 Sitting Exercise Name Biceps curls Side right Resistance 4# active pron and sup Sitting Exercise Name Conductor Symphonic Orchestra 3/4 way down Hammer Side right wrist flexion ext Sitting Exercise Name Flexibar - flexion, twisting Resistance Red 4 Sitting Exercise Name Overhead Press Side bilateral Resistance 4# 3 Sitting Exercise Name quick release ball toss in pronation Side right Resistance tennis ball Standing Exercises 1 Standing Exercise Name Standing tennis ball catch Side right Other Exercises 2 Other Exercise Name Wall clocks Resistance Yellow Equipment Used T-band 1 Other Exercise Name Resisted UE lateral walk along rail Resistance Yellow Equipment Used T-band Manual Therapy Treatment Soft Tissue Mobilization Incision Body Location Lat Epicondyle scar mobs Mobilization Type Cross-Friction Biceps Body Location distal bicep tendon Mobilization Type Sustained Pressure,Trigger Point Release Intensity/Depth Superficial Body Position Sitting Comments with passive elbow flexion extension PT-OP-T Assessment and Plan Start: 03/12/20 11:49 Freq: Status: Active Protocol: Document 04/16/20 10:30 DCW (Rec: 04/16/20 11:13 DCW [id number]) Physical Therapy Assessment Impairments Impairments Activity Tolerance,Edema, Functional Activities, Functional Mobility,Integument ,Pain,ROM,Soft Tissue Mobility ,Strength Goals Four Impairment Right elbow ROM limited to 45- 122? Short Term Goal (STG) Right elbow ROM to improve to at least 20? extension and 130 ? flexion STG Duration Met - 4?-145? Net Developer Consultant Goal (LTG) Right elbow ROM to improve to 0? extension and 140? flexion LTG Duration 05/10/20 Three Impairment Limited wrist ROM to 38? flexion and 45? extension Short Term Goal (STG) Pt to demonstrate improved R wrist flexion/extension to 60? 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 STG Duration 05/10/20 - Improving (Ext 55?, Flex 70?) Two Impairment QuickDash score 75% Net Developer Consultant Goal (LTG) Patient will have quickDash score of <25/100 LTG Duration 05/10/20 One Impairment No HEP in place Short Term Goal (STG) Pt to be independent and compliant with an appropriate HEP STG Duration Met Assessment Summary Assessment Pt had no pain with any activity today, just noted fatigue by end of session. Physical Therapy Plan Frequency and Duration Frequency of Treatment 2x/Week Duration of Treatment 10 weeks Plan of Care Start Date 03/10/20 Plan of Care End Date 05/19/20 Therapeutic Interventions Therapeutic Interventions Home Exercise Program,Joint Mobilizations,Manual Therapy, Patient/Caregiver Education, Self-Care/Home Management,Soft Tissue Mobilization,Taping, Therapeutic Activities, Therapeutic Exercises Modalities Cold Pack/Ice Massage,Electric Stimulation,Hot Packs, Ultrasound Next Visit Focus/Plan Next Note Type Progress Note Next Visit Plan Passive/Active ROM, Gentle strengthening
--- NOTE | 2020-04-21 11:15 | PT.OTN ---
Current Diagnoses Pain in right elbow (04/21/20) Stiffness of right elbow, not elsewhere classified (04/21/20) Lateral epicondylitis, right elbow (04/21/20) Weakness (04/21/20) Encounter for other specified surgical aftercare (04/21/20) Physical Therapy Treatment Note PT-OP-A Visit Information Start: 03/12/20 11:49 Freq: Status: Active Protocol: Document 04/21/20 10:30 DCW (Rec: 04/21/20 11:14 DCW [id number]) Out-Patient Physical Therapy Visit Information Visit Information Visit Type Treatment Note Visit Start Time 10:30 Visit Stop Time 11:15 Total Visit Minutes 45 Visit Number 11 Number of BAKERY MANAGER Visits 0 Evaluation Information Evaluation Date 03/10/20 PT-OP-B Current Condition Start: 03/12/20 11:49 Freq: Status: Active Protocol: Document 03/10/20 12:00 DCW (Rec: 03/12/20 12:02 DCW [id number]) Current Condition History of Current Condition Onset Date 03/04/20 Current Complaints 6 days s/p R Lateral epicondylitis debridement and tendon repair History of Current Condition Pt is a 59 year old female presenting 6 days s/p R Lateral epicondylitis debridement and tendon repair. Pt had previously been seen at this clinic last year for assessment and treatment of tendonitis, and pt was able to return to a functional level for work, but continued to experience significant pain. A recent MRI revealed partial- thickness tears of the lateral ulnar collateral ligament and radial collateral ligament, as well as the common extensor tendon. Pt underwent surgical debridement/repair, and presents today in her post-op splint. Per orders from her surgeon, splint was removed in order to begin initiation of ROM exercises. 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 PT-OP-C Subjective Start: 03/12/20 11:49 Freq: Status: Active Protocol: Document 04/21/20 10:30 DCW (Rec: 04/21/20 11:14 DCW [id number]) OP-PT Subjective Patient Comments Patient Comments I think I over did it Tuesday and Tuesday, because it was bothering me enough yesterday that I wore my brace, but it is feeling better today. PT-OP-F Manual Assessment Start: 03/12/20 11:49 Freq: Status: Active Protocol: Document 03/10/20 12:00 DCW (Rec: 03/12/20 15:33 DCW [id number]) Manual Assessments Other Manual Assessments Other Manual Assessments Mild-moderate edema and joint effusion around right elbow. Significant joint stiffness after removal of splint. PT-OP-K Range of Motion Start: 03/12/20 11:49 Freq: Status: Active Protocol: Document 03/10/20 12:00 DCW (Rec: 03/12/20 15:33 DCW [id number]) Elbow/Forearm Range of Motion Elbow/Forearm Right Active Elbow/Forearm ROM WFL No ROM Testing Position Sitting Elbow Flexion (degrees) 122 Elbow Extension (degrees) 45 Pronation (degrees) 90 Supination (degrees) 35 Wrist Goniometric Range of Motion Wrist Right Wrist ROM WFL No Flexion Passive (degrees) 38 Extension Passive (degrees) 45 Ulnar Deviation Passive (degrees) 32 Radial Deviation Passive (degrees) 28 PT-OP-M Strength Start: 03/12/20 11:49 Freq: Status: Active Protocol: Document 03/10/20 12:00 DCW (Rec: 03/12/20 15:33 DCW [id number]) Wrist Strength Wrist Manual Muscle Testing Right Reason Not Measured Orthopedic Precautions PT-OP-Q Treatments Start: 03/12/20 11:49 Freq: Status: Active Protocol: Document 04/21/20 10:30 DCW (Rec: 04/21/20 11:14 DCW [id number]) Therapeutic Exercises Sitting Exercises 5 Sitting Exercise Name Biceps curls Side right Resistance 3# active pron and sup Sitting Exercise Name Rn Invasive 3/4 way down Hammer Side right wrist flexion ext Sitting Exercise Name Flexibar - flexion, twisting Resistance Red 4 Sitting Exercise Name Overhead Press Side bilateral Resistance 3# 3 Sitting Exercise Name quick release ball toss in pronation Side right Resistance tennis ball Standing Exercises 1 Standing Exercise Name Standing tennis ball catch Side right Other Exercises 2 Other Exercise Name Wall clocks Resistance Yellow Equipment Used T-band 1 Other Exercise Name Resisted UE lateral walk along rail Resistance Yellow Equipment Used T-band Manual Therapy Treatment Soft Tissue Mobilization Incision Body Location Lat Epicondyle scar mobs Mobilization Type Cross-Friction Biceps Body Location distal bicep tendon Mobilization Type Sustained Pressure,Trigger Point Release Intensity/Depth Superficial Body Position Sitting Comments with passive elbow flexion extension PT-OP-T Assessment and Plan Start: 03/12/20 11:49 Freq: Status: Active Protocol: Document 04/21/20 10:30 DCW (Rec: 04/21/20 11:14 DCW [id number]) Physical Therapy Assessment Impairments Impairments Activity Tolerance,Edema, Functional Activities, Functional Mobility,Integument ,Pain,ROM,Soft Tissue Mobility ,Strength Goals Four Impairment Right elbow ROM limited to 45- 122? Short Term Goal (STG) Right elbow ROM to improve to at least 20? extension and 130 ? flexion STG Duration Met - 4?-145? Fci Goal (LTG) Right elbow ROM to improve to 0? extension and 140? flexion LTG Duration 05/10/20 Three Impairment Limited wrist ROM to 38? flexion and 45? extension Short Term Goal (STG) Pt to demonstrate improved R wrist flexion/extension to 60? 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 STG Duration 05/10/20 - Improving (Ext 55?, Flex 70?) Two Impairment QuickDash score 75% Fci Goal (LTG) Patient will have quickDash score of <25/100 LTG Duration 05/10/20 One Impairment No HEP in place Short Term Goal (STG) Pt to be independent and compliant with an appropriate HEP STG Duration Met Assessment Summary Assessment Pt experiencing more tenderness today after spending time this weekend shoveling in her yard. Pt acknowledges that this was not the best activity for her to do, and agrees that she probably shouldn't do it again . Physical Therapy Plan Frequency and Duration Frequency of Treatment 2x/Week Duration of Treatment 10 weeks Plan of Care Start Date 03/10/20 Plan of Care End Date 05/19/20 Therapeutic Interventions Therapeutic Interventions Home Exercise Program,Joint Mobilizations,Manual Therapy, Patient/Caregiver Education, Self-Care/Home Management,Soft Tissue Mobilization,Taping, Therapeutic Activities, Therapeutic Exercises Modalities Cold Pack/Ice Massage,Electric Stimulation,Hot Packs, Ultrasound Next Visit Focus/Plan Next Note Type Progress Note Next Visit Plan Passive/Active ROM, Gentle strengthening
--- NOTE | 2020-04-23 11:16 | PT.OTN ---
Current Diagnoses Pain in right elbow (04/23/20) Stiffness of right elbow, not elsewhere classified (04/23/20) Lateral epicondylitis, right elbow (04/23/20) Weakness (04/23/20) Encounter for other specified surgical aftercare (04/23/20) Physical Therapy Treatment Note PT-OP-A Visit Information Start: 03/12/20 11:49 Freq: Status: Active Protocol: Document 04/23/20 10:30 DCW (Rec: 04/23/20 11:15 DCW [id number]) Out-Patient Physical Therapy Visit Information Visit Information Visit Type Treatment Note Visit Start Time 10:30 Visit Stop Time 11:15 Total Visit Minutes 45 Visit Number 12 Number of ROCKET MOTOR TESTER Visits 0 Evaluation Information Evaluation Date 03/10/20 PT-OP-B Current Condition Start: 03/12/20 11:49 Freq: Status: Active Protocol: Document 03/10/20 12:00 DCW (Rec: 03/12/20 12:02 DCW [id number]) Current Condition History of Current Condition Onset Date 03/04/20 Current Complaints 6 days s/p R Lateral epicondylitis debridement and tendon repair History of Current Condition Pt is a 59 year old female presenting 6 days s/p R Lateral epicondylitis debridement and tendon repair. Pt had previously been seen at this clinic last year for assessment and treatment of tendonitis, and pt was able to return to a functional level for work, but continued to experience significant pain. A recent MRI revealed partial- thickness tears of the lateral ulnar collateral ligament and radial collateral ligament, as well as the common extensor tendon. Pt underwent surgical debridement/repair, and presents today in her post-op splint. Per orders from her surgeon, splint was removed in order to begin initiation of ROM exercises. 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 PT-OP-C Subjective Start: 03/12/20 11:49 Freq: Status: Active Protocol: Document 04/23/20 10:30 DCW (Rec: 04/23/20 11:15 DCW [id number]) OP-PT Subjective Patient Comments Patient Comments Pt reports she has not had any issues simce Tuesday, but reports she has been having some discomfort with wrist extension, is unsure what caused it. Pt did, however, then admit that she spent a fair amount of time on her hands and knees the previous day caulking toilets. PT-OP-F Manual Assessment Start: 03/12/20 11:49 Freq: Status: Active Protocol: Document 03/10/20 12:00 DCW (Rec: 03/12/20 15:33 DCW [id number]) Manual Assessments Other Manual Assessments Other Manual Assessments Mild-moderate edema and joint effusion around right elbow. Significant joint stiffness after removal of splint. PT-OP-K Range of Motion Start: 03/12/20 11:49 Freq: Status: Active Protocol: Document 03/10/20 12:00 DCW (Rec: 03/12/20 15:33 DCW [id number]) Elbow/Forearm Range of Motion Elbow/Forearm Right Active Elbow/Forearm ROM WFL No ROM Testing Position Sitting Elbow Flexion (degrees) 122 Elbow Extension (degrees) 45 Pronation (degrees) 90 Supination (degrees) 35 Wrist Goniometric Range of Motion Wrist Right Wrist ROM WFL No Flexion Passive (degrees) 38 Extension Passive (degrees) 45 Ulnar Deviation Passive (degrees) 32 Radial Deviation Passive (degrees) 28 PT-OP-M Strength Start: 03/12/20 11:49 Freq: Status: Active Protocol: Document 03/10/20 12:00 DCW (Rec: 03/12/20 15:33 DCW [id number]) Wrist Strength Wrist Manual Muscle Testing Right Reason Not Measured Orthopedic Precautions PT-OP-Q Treatments Start: 03/12/20 11:49 Freq: Status: Active Protocol: Document 04/23/20 10:30 DCW (Rec: 04/23/20 11:15 DCW [id number]) Therapeutic Exercises Sitting Exercises 5 Sitting Exercise Name Biceps curls Side right Resistance 4# active pron and sup Sitting Exercise Name Hammer Side right wrist flexion ext Sitting Exercise Name Flexibar - flexion, twisting Resistance Red 4 Sitting Exercise Name Overhead Press Side bilateral Resistance 4# 3 Sitting Exercise Name quick release ball toss in pronation Side right Resistance tennis ball Standing Exercises 1 Standing Exercise Name Standing tennis ball catch Side right Other Exercises 2 Other Exercise Name Wall clocks Resistance Yellow Equipment Used T-band 1 Other Exercise Name Resisted UE lateral walk along rail Resistance Yellow Equipment Used T-band Manual Therapy Treatment Soft Tissue Mobilization Incision Body Location Lat Epicondyle scar mobs Mobilization Type Cross-Friction Biceps Body Location distal bicep tendon Mobilization Type Sustained Pressure,Trigger Point Release Intensity/Depth Superficial Body Position Sitting Comments with passive elbow flexion extension PT-OP-T Assessment and Plan Start: 03/12/20 11:49 Freq: Status: Active Protocol: Document 04/23/20 10:30 DCW (Rec: 04/23/20 11:15 DCW [id number]) Physical Therapy Assessment Impairments Impairments Activity Tolerance,Edema, Functional Activities, Functional Mobility,Integument ,Pain,ROM,Soft Tissue Mobility ,Strength Goals Four Impairment Right elbow ROM limited to 45- 122? Short Term Goal (STG) Right elbow ROM to improve to at least 20? extension and 130 ? flexion STG Duration Met - 4?-145? Special Needs Babysitter Goal (LTG) Right elbow ROM to improve to 0? extension and 140? flexion LTG Duration 05/10/20 Three Impairment Limited wrist ROM to 38? flexion and 45? extension Short Term Goal (STG) Pt to demonstrate improved R wrist flexion/extension to 60? 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 STG Duration 05/10/20 - Improving (Ext 55?, Flex 70?) Two Impairment QuickDash score 75% Special Needs Babysitter Goal (LTG) Patient will have quickDash score of <25/100 LTG Duration 05/10/20 One Impairment No HEP in place Short Term Goal (STG) Pt to be independent and compliant with an appropriate HEP STG Duration Met Assessment Summary Assessment Pt progressing very well, likely approaching discharge to HEP strengthening program. Pt has two remaining visits scheduled next week, will use them for testing/ remeasurements and review of HEP. Physical Therapy Plan Frequency and Duration Frequency of Treatment 2x/Week Duration of Treatment 10 weeks Plan of Care Start Date 03/10/20 Plan of Care End Date 05/19/20 Therapeutic Interventions Therapeutic Interventions Home Exercise Program,Joint Mobilizations,Manual Therapy, Patient/Caregiver Education, Self-Care/Home Management,Soft Tissue Mobilization,Taping, Therapeutic Activities, Therapeutic Exercises Modalities Cold Pack/Ice Massage,Electric Stimulation,Hot Packs, Ultrasound Next Visit Focus/Plan Next Note Type Treatment Note Next Visit Plan Passive/Active ROM, Gentle strengthening
--- NOTE | 2020-04-28 11:15 | PT.OTN ---
Current Diagnoses Pain in right elbow (04/28/20) Stiffness of right elbow, not elsewhere classified (04/28/20) Lateral epicondylitis, right elbow (04/28/20) Weakness (04/28/20) Encounter for other specified surgical aftercare (04/28/20) Physical Therapy Treatment Note PT-OP-A Visit Information Start: 03/12/20 11:49 Freq: Status: Active Protocol: Document 04/28/20 10:30 DCW (Rec: 04/28/20 11:09 DCW [id number]) Out-Patient Physical Therapy Visit Information Visit Information Visit Type Treatment Note Visit Start Time 10:30 Visit Stop Time 11:15 Total Visit Minutes 45 Visit Number 13 Number of BRICKLAYER Visits 0 Evaluation Information Evaluation Date 03/10/20 PT-OP-B Current Condition Start: 03/12/20 11:49 Freq: Status: Active Protocol: Document 03/10/20 12:00 DCW (Rec: 03/12/20 12:02 DCW [id number]) Current Condition History of Current Condition Onset Date 03/04/20 Current Complaints 6 days s/p R Lateral epicondylitis debridement and tendon repair History of Current Condition Pt is a 59 year old female presenting 6 days s/p R Lateral epicondylitis debridement and tendon repair. Pt had previously been seen at this clinic last year for assessment and treatment of tendonitis, and pt was able to return to a functional level for work, but continued to experience significant pain. A recent MRI revealed partial- thickness tears of the lateral ulnar collateral ligament and radial collateral ligament, as well as the common extensor tendon. Pt underwent surgical debridement/repair, and presents today in her post-op splint. Per orders from her surgeon, splint was removed in order to begin initiation of ROM exercises. 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 PT-OP-C Subjective Start: 03/12/20 11:49 Freq: Status: Active Protocol: Document 04/28/20 10:30 DCW (Rec: 04/28/20 11:09 DCW [id number]) OP-PT Subjective Patient Comments Patient Comments Pt reports her elbow is doing well, even after helping to move a 100 pound treadmill down two flights of stairs on Tuesday. Patient Questionnaires Quick Dash- Upper Extremity Quick Dash UE Score 18.18% Quick Dash UE Impairment 1 to 19% Impaired (Score 1-19) PT-OP-F Manual Assessment Start: 03/12/20 11:49 Freq: Status: Active Protocol: Document 04/28/20 10:30 DCW (Rec: 04/28/20 11:15 DCW [id number]) Manual Assessments Other Manual Assessments Other Manual Assessments No edema or joint effusion, incision healing, minimal adhesion PT-OP-K Range of Motion Start: 03/12/20 11:49 Freq: Status: Active Protocol: Document 04/28/20 10:30 DCW (Rec: 04/28/20 11:15 DCW [id number]) Elbow/Forearm Range of Motion Elbow/Forearm Right Active Elbow/Forearm ROM WFL Yes ROM Testing Position Sitting Elbow Flexion (degrees) 147 Elbow Extension (degrees) 0 Pronation (degrees) 110 Supination (degrees) 90 Wrist Goniometric Range of Motion Wrist Right Wrist ROM WFL Yes Flexion Active (degrees) 71 Flexion Passive (degrees) 90 Extension Active (degrees) 60 Extension Passive (degrees) 88 Ulnar Deviation Active (degrees) 37 Ulnar Deviation Passive (degrees) 40 Radial Deviation Active (degrees) 28 Radial Deviation Passive (degrees) 28 PT-OP-M Strength Start: 03/12/20 11:49 Freq: Status: Active Protocol: Document 04/28/20 10:30 DCW (Rec: 04/28/20 11:15 DCW [id number]) Elbow/Forearm Strength Elbow and Forearm Manual Muscle Testing Right Flexion (C6) 4+ Good+ Extension (C7) 4 Good Pronation 4+ Good+ Supination 4 Good Wrist Strength Wrist Manual Muscle Testing Right Flexion (C7) 4+ Good+ Extension (C6) 5 Normal Ulnar Deviation 4+ Good+ Radial Deviation 4+ Good+ Hand Wellness Rn/Pinch Strength Hand Dominance Hand Dominance Right Hand Strength Left Wellness Rn (lbs) 48.33 Comments 3-trial avg (55, 50, 40 lbs) Right Wellness Rn (lbs) 44 Comments 3-trial avg (42, 45, 45 lbs) PT-OP-Q Treatments Start: 03/12/20 11:49 Freq: Status: Active Protocol: Document 04/28/20 10:30 DCW (Rec: 04/28/20 11:09 DCW [id number]) Therapeutic Exercises Sitting Exercises 5 Sitting Exercise Name Biceps curls Side right Resistance 4# active pron and sup Sitting Exercise Name Hammer Side right 4 Sitting Exercise Name Overhead Press Side bilateral Resistance 4# 3 Sitting Exercise Name quick release ball toss in pronation Side right Resistance tennis ball Standing Exercises 1 Standing Exercise Name Standing tennis ball catch Side right Other Exercises 1 Other Exercise Name Resisted UE lateral walk along rail Resistance Yellow Equipment Used T-band Manual Therapy Treatment Soft Tissue Mobilization Incision Body Location Lat Epicondyle scar mobs Mobilization Type Cross-Friction Other Other Manual Treatments Testing PT-OP-T Assessment and Plan Start: 03/12/20 11:49 Freq: Status: Active Protocol: Document 04/28/20 10:30 DCW (Rec: 04/28/20 11:09 DCW [id number]) Physical Therapy Assessment Impairments Impairments Activity Tolerance,Edema, Functional Activities, Functional Mobility,Integument ,Pain,ROM,Soft Tissue Mobility ,Strength Goals Four Impairment Right elbow ROM limited to 45- 122? Short Term Goal (STG) Right elbow ROM to improve to at least 20? extension and 130 ? flexion STG Duration Met Track Inspecting Supervisor Goal (LTG) Right elbow ROM to improve to 0? extension and 140? flexion LTG Duration Met Three Impairment Limited wrist ROM to 38? flexion and 45? extension Short Term Goal (STG) Pt to demonstrate improved R wrist flexion/extension to 60? 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 STG Duration Met Two Impairment QuickDash score 75% Track Inspecting Supervisor Goal (LTG) Patient will have quickDash score of <25/100 LTG Duration Met One Impairment No HEP in place Short Term Goal (STG) Pt to be independent and compliant with an appropriate HEP STG Duration Met Assessment Summary Assessment Pt testing very well today, ROM WNL, improving strength, and R pool hall inspector strength nearly equal to L pool hall inspector strength. Pt would benefit from one more visit in order to review comprehensive HEP prior to discharge. Physical Therapy Plan Frequency and Duration Frequency of Treatment 2x/Week Duration of Treatment 10 weeks Plan of Care Start Date 03/10/20 Plan of Care End Date 05/19/20 Therapeutic Interventions Therapeutic Interventions Home Exercise Program,Joint Mobilizations,Manual Therapy, Patient/Caregiver Education, Self-Care/Home Management,Soft Tissue Mobilization,Taping, Therapeutic Activities, Therapeutic Exercises Modalities Cold Pack/Ice Massage,Electric Stimulation,Hot Packs, Ultrasound Next Visit Focus/Plan Next Note Type Discharge Summary Next Visit Plan HEP
--- NOTE | 2020-04-30 11:04 | PT.OTN ---
Current Diagnoses Pain in right elbow (04/30/20) Stiffness of right elbow, not elsewhere classified (04/30/20) Lateral epicondylitis, right elbow (04/30/20) Weakness (04/30/20) Encounter for other specified surgical aftercare (04/30/20) Physical Therapy Treatment Note PT-OP-A Visit Information Start: 03/12/20 11:49 Freq: Status: Active Protocol: Document 04/30/20 10:30 DCW (Rec: 04/30/20 11:04 DCW [id number]) Out-Patient Physical Therapy Visit Information Visit Information Visit Type Discharge Summary Visit Start Time 10:30 Visit Stop Time 11:58 Total Visit Minutes 28 Visit Number 14 Number of VISUAL SPECIALIST Visits 0 Evaluation Information Evaluation Date 03/10/20 PT-OP-B Current Condition Start: 03/12/20 11:49 Freq: Status: Active Protocol: Document 03/10/20 12:00 DCW (Rec: 03/12/20 12:02 DCW [id number]) Current Condition History of Current Condition Onset Date 03/04/20 Current Complaints 6 days s/p R Lateral epicondylitis debridement and tendon repair History of Current Condition Pt is a 59 year old female presenting 6 days s/p R Lateral epicondylitis debridement and tendon repair. Pt had previously been seen at this clinic last year for assessment and treatment of tendonitis, and pt was able to return to a functional level for work, but continued to experience significant pain. A recent MRI revealed partial- thickness tears of the lateral ulnar collateral ligament and radial collateral ligament, as well as the common extensor tendon. Pt underwent surgical debridement/repair, and presents today in her post-op splint. Per orders from her surgeon, splint was removed in order to begin initiation of ROM exercises. 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 PT-OP-C Subjective Start: 03/12/20 11:49 Freq: Status: Active Protocol: Document 04/30/20 10:30 DCW (Rec: 04/30/20 11:04 DCW [id number]) OP-PT Subjective Patient Comments Patient Comments Pt reports she saw Dr Bellamy, the only thing he was mad about is that I need to put sunscreen on it so it doesn't scar. PT-OP-F Manual Assessment Start: 03/12/20 11:49 Freq: Status: Active Protocol: Document 04/28/20 10:30 DCW (Rec: 04/28/20 11:15 DCW [id number]) Manual Assessments Other Manual Assessments Other Manual Assessments No edema or joint effusion, incision healing, minimal adhesion PT-OP-K Range of Motion Start: 03/12/20 11:49 Freq: Status: Active Protocol: Document 04/28/20 10:30 DCW (Rec: 04/28/20 11:15 DCW [id number]) Elbow/Forearm Range of Motion Elbow/Forearm Right Active Elbow/Forearm ROM WFL Yes ROM Testing Position Sitting Elbow Flexion (degrees) 147 Elbow Extension (degrees) 0 Pronation (degrees) 110 Supination (degrees) 90 Wrist Goniometric Range of Motion Wrist Right Wrist ROM WFL Yes Flexion Active (degrees) 71 Flexion Passive (degrees) 90 Extension Active (degrees) 60 Extension Passive (degrees) 88 Ulnar Deviation Active (degrees) 37 Ulnar Deviation Passive (degrees) 40 Radial Deviation Active (degrees) 28 Radial Deviation Passive (degrees) 28 PT-OP-M Strength Start: 03/12/20 11:49 Freq: Status: Active Protocol: Document 04/28/20 10:30 DCW (Rec: 04/28/20 11:15 DCW [id number]) Elbow/Forearm Strength Elbow and Forearm Manual Muscle Testing Right Flexion (C6) 4+ Good+ Extension (C7) 4 Good Pronation 4+ Good+ Supination 4 Good Wrist Strength Wrist Manual Muscle Testing Right Flexion (C7) 4+ Good+ Extension (C6) 5 Normal Ulnar Deviation 4+ Good+ Radial Deviation 4+ Good+ Hand Lens Cleaner/Pinch Strength Hand Dominance Hand Dominance Right Hand Strength Left Lens Cleaner (lbs) 48.33 Comments 3-trial avg (55, 50, 40 lbs) Right Lens Cleaner (lbs) 44 Comments 3-trial avg (42, 45, 45 lbs) PT-OP-Q Treatments Start: 03/12/20 11:49 Freq: Status: Active Protocol: Document 04/30/20 10:30 DCW (Rec: 04/30/20 11:04 DCW [id number]) Therapeutic Exercises Sitting Exercises active pron and sup Sitting Exercise Name Hammer Side right wrist flexion ext Sitting Exercise Name Flexibar - flexion, twisting, ulnar deviation Resistance Red 3 Sitting Exercise Name quick release ball toss in pronation Side right Resistance tennis ball 2 Sitting Exercise Name Triceps pull down Side right Resistance Lv 2 Equipment Used T-band Self-Care/Home Management Treatment Education Other Education Review HEP handout: -Wrist Extensor Stretch -Wrist Flexor Stretch -Wrist Extension Curls -Wrist Curls -Hammer Pro/Supination -T-band Triceps -Bicep Curls -Reverse Curls -Ulnar Deviation /c weight -Radial Deviation /c weight PT-OP-T Assessment and Plan Start: 03/12/20 11:49 Freq: Status: Active Protocol: Document 04/30/20 10:30 DCW (Rec: 04/30/20 11:04 DCW [id number]) Physical Therapy Assessment Impairments Impairments Activity Tolerance,Edema, Functional Activities, Functional Mobility,Integument ,Pain,ROM,Soft Tissue Mobility ,Strength Goals Four Impairment Right elbow ROM limited to 45- 122? Short Term Goal (STG) Right elbow ROM to improve to at least 20? extension and 130 ? flexion STG Duration Met Waiter/Waitress Counter Goal (LTG) Right elbow ROM to improve to 0? extension and 140? flexion LTG Duration Met Three Impairment Limited wrist ROM to 38? flexion and 45? extension Short Term Goal (STG) Pt to demonstrate improved R wrist flexion/extension to 60? 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 STG Duration Met Two Impairment QuickDash score 75% Waiter/Waitress Counter Goal (LTG) Patient will have quickDash score of <25/100 LTG Duration Met One Impairment No HEP in place Short Term Goal (STG) Pt to be independent and compliant with an appropriate HEP STG Duration Met Progress Towards Goals Progress Towards Goals Goals Met Assessment Summary Assessment Pt has met all goals, compliant and understanding of HEP. Pt appropriate for discharge at this time. Physical Therapy Plan Frequency and Duration Frequency of Treatment 2x/Week Duration of Treatment 10 weeks Plan of Care Start Date 03/10/20 Plan of Care End Date 05/19/20 Therapeutic Interventions Therapeutic Interventions Home Exercise Program,Joint Mobilizations,Manual Therapy, Patient/Caregiver Education, Self-Care/Home Management,Soft Tissue Mobilization,Taping, Therapeutic Activities, Therapeutic Exercises Modalities Cold Pack/Ice Massage,Electric Stimulation,Hot Packs, Ultrasound Discharge Physical Therapy Discharge Reasons Goals Met Next Visit Focus/Plan Next Note Type Discharge Summary
== END 2020-04-30 15:45 ==
LOC: PHYS 10:30
PROVIDERS: Family Provider Student in an Organized Health Care Education/Training Program; PCP Student in an Organized Health Care Education/Training Program; Referring Provider Orthopaedic Surgery Hand Surgery; Visit Provider Orthopaedic Surgery Hand Surgery
DX: M77.11 Lateral epicondylitis, right elbow (principal); Z48.89 Encounter for other specified surgical aftercare; M25.621 Stiffness of right elbow, not elsewhere classified; M25.521 Pain in right elbow; R53.1 Weakness
CPT/HCPCS: 97110; 97140; 97162; 97535

== ENCOUNTER → 2020-07-01 15:39 | Outpatient (CLI) | payer OTHER, SELFPAY ==
--- NOTE | 2020-07-01 | DI.RAD.S_ITS ---
PROCEDURE: XR HAND LT MIN 3V INDICATIONS: FINGER TECHNIQUE: 3 views of the hand(s) acquired. COMPARISON: [facility], , HAND 3V LEFT, 02/29/2008, 12:01. FINDINGS: Bones: No fractures or dislocations. Carpal bones are normally aligned. No suspicious bony lesions. Soft tissues: No suspicious soft tissue calcifications. IMPRESSION: No abnormality seen. Dictated by: Vahid Aldridge M.D. on 07/01/2020 at 16:33 Approved by: Vahid Aldridge M.D. on 07/01/2020 at 16:34
== END ==
PROVIDERS: Family Provider Student in an Organized Health Care Education/Training Program; PCP Student in an Organized Health Care Education/Training Program; Referring Provider Student in an Organized Health Care Education/Training Program; Visit Provider Student in an Organized Health Care Education/Training Program
DX: M79.646 Pain in unspecified finger(s) (principal)
CPT/HCPCS: 73130

== ENCOUNTER → 2021-01-07 08:57 | Outpatient (CLI) | payer OTHER, SELFPAY ==
[2021-01-07] MEDS: COVID-19 VACC #1, MRNA(MOD) 100 MCG/0.5 ML VIAL IM (09:05)
== END ==
PROVIDERS: Family Provider Student in an Organized Health Care Education/Training Program; PCP Student in an Organized Health Care Education/Training Program; Visit Provider Internal Medicine
DX: Z23 Encounter for immunization (principal)
CPT/HCPCS: 0011A; 91301

== ENCOUNTER → 2021-02-04 08:59 | Outpatient (CLI) | payer OTHER, SELFPAY ==
[2021-02-04] MEDS: COVID-19 VACC #2, MRNA(MOD) 100 MCG/0.5 ML VIAL IM (09:06)
== END ==
PROVIDERS: Family Provider Student in an Organized Health Care Education/Training Program; PCP Student in an Organized Health Care Education/Training Program; Visit Provider Internal Medicine
DX: Z23 Encounter for immunization (principal)
CPT/HCPCS: 0012A; 91301

== ENCOUNTER → 2022-01-13 14:11 | Outpatient (CLI) | payer OTHER, SELFPAY | PROVIDERS: Family Provider Student in an Organized Health Care Education/Training Program; PCP Student in an Organized Health Care Education/Training Program; Referring Provider Student in an Organized Health Care Education/Training Program; Visit Provider Student in an Organized Health Care Education/Training Program | DX: Z13.820 Encounter for screening for osteoporosis (principal); Z78.0 Asymptomatic menopausal state; M85.89 Other specified disorders of bone density and structure, multiple sites | CPT/HCPCS: 77080 ==

== ENCOUNTER → 2022-01-20 11:08 | Outpatient (CLI) | payer OTHER, SELFPAY ==
--- NOTE | 2022-01-20 11:11 | DI.MG.S_ITS ---
BILATERAL DIGITAL SCREENING MAMMOGRAM 3D/2D WITH CAD: 01/20/2022 CLINICAL: Routine screening. Comparison is made to exams dated: 02/02/2018 mammogram, 06/17/2011 mammogram, and 10/11/2006 mammogram - [facility]. The tissue of both breasts is heterogeneously dense. This may lower the sensitivity of mammography. Current study was also evaluated with a Computer Aided Detection (CAD) system. No significant masses, calcifications, or other findings are seen in either breast. There has been no significant interval change. IMPRESSION: NEGATIVE There is no mammographic evidence of malignancy. A 1 year screening mammogram is recommended. This exam was interpreted at Station ID: [id number]. NOTE: For mammograms, a report in lay terms will be sent to the patient. Approximately 15% of breast malignancies will not be visualized mammographically. In the management of a palpable breast mass, a negative mammogram must not discourage biopsy of a clinically suspicious lesion. Electronically Signed By: Frandy Lai M.D., jr/maura:01/20/2022 14:02:07 letter sent: Normal Exam ACR BI-RADS Category 1: Negative [id number]
== END ==
PROVIDERS: Family Provider Student in an Organized Health Care Education/Training Program; PCP Student in an Organized Health Care Education/Training Program; Referring Provider Student in an Organized Health Care Education/Training Program; Visit Provider Student in an Organized Health Care Education/Training Program
DX: Z12.31 Encounter for screening mammogram for malignant neoplasm of breast (principal)
CPT/HCPCS: 77063; 77067

== ENCOUNTER → 2022-02-23 11:09 | Outpatient (CLI) | payer OTHER, SELFPAY ==
--- NOTE | 2022-02-23 | DI.MRI.S_ITS ---
PROCEDURE: MR ABDOMEN WO/W CON INDICATIONS: Other specified diseases of liver TECHNIQUE: Coronal HASTE, axial 2D FLASH in- and xol-pe-nlnow; axial breath-hold T2 FSE. Dynamic axial VIBE during the administration of contrast; post-contrast coronal VIBE or 2D FLASH with fat saturation from the hepatic dome to the iliac crests. Optional diffusion weighted imaging and ADC may be performed. COMPARISON: [facility], CT, ABDOMEN/PELVIS WITH CONTRAST, 11/09/2017, 11:14. FINDINGS: Image quality: Excellent. Lung bases: No basal pleural effusions. Heart size is normal. Solid organs: Liver is normal in size and enhancement. There are two T2 hyperintense thin-walled unilocular lesions in the right lobe of the liver, segment VII peripherally, and segment VII/VIII. The larger measures 2.1 cm, and the smaller measures 1.4 cm in maximal diameter. Postcontrast, these demonstrate characteristic peripheral nodular enhancement as well as adjacent vascular shunting. There is gradual fill-in on venous and delayed phase sequences. There is no new liver lesion. Gallbladder is normal. Biliary system is non dilated. Pancreas is normal in morphology. Spleen is normal in size and enhancement. No adrenal nodules. Both kidneys demonstrate normal size and enhancement, without hydronephrosis. Nodes and vessels: No retroperitoneal or mesenteric adenopathy by size criteria. Aorta and inferior vena cava are normal in size. Bowel and peritoneum: Unenhanced bowel loops are normal in caliber. No free fluid. Bones and soft tissues: No ventral hernias. Bone marrow is normal in overall signal. IMPRESSION: 1. Two right lobe liver lesions with MR features consistent with hepatic hemangiomas. These have increased in size since the study done in 2018, but their increased size makes it easier to see the classic enhancement pattern. 2. There is no MR evidence of new liver lesion or other hepatic abnormality. Dictated by: Yamila Springer M.D. on 02/23/2022 at 15:53 Approved by: Yamila Springer M.D. on 02/23/2022 at 16:08
== END ==
PROVIDERS: Family Provider Student in an Organized Health Care Education/Training Program; PCP Student in an Organized Health Care Education/Training Program; Referring Provider Student in an Organized Health Care Education/Training Program; Visit Provider Student in an Organized Health Care Education/Training Program
DX: K76.89 Other specified diseases of liver (principal)
CPT/HCPCS: 74183; A9579

== ENCOUNTER → 2022-07-13 15:53 | Outpatient (CLI) | payer OTHER, SELFPAY ==
--- NOTE | 2022-07-13 15:57 | DI.RAD.S_ITS ---
PROCEDURE: XR KNEE RT 3V INDICATIONS: Pain in right knee TECHNIQUE: 3 views of the knee were acquired. COMPARISON: None. FINDINGS: Bones: No fractures or dislocations. No suspicious bony lesions. Mild tricompartmental periarticular osteophyte formation. Soft tissues: No joint effusion. No suspicious soft tissue calcifications. Chondrocalcinosis. IMPRESSION: 1. Mild early tricompartmental knee joint degeneration. 2. Chondrocalcinosis. Differential diagnosis includes but is not limited to hemochromatosis, hyperparathyroidism and CPPD. Dictated by: Santiago PENALOZA Interpreted: Agueda Andrade MD on 07/13/2022 at 16:19 Transcribed by: BRETT on 07/13/2022 at 16:20 Approved by: Agueda Andrade M.D. on 07/14/2022 at 8:14
== END ==
PROVIDERS: Family Provider Student in an Organized Health Care Education/Training Program; PCP Family Medicine; Referring Provider Family Medicine; Visit Provider Family Medicine
DX: M17.11 Unilateral primary osteoarthritis, right knee (principal); M11.261 Other chondrocalcinosis, right knee; M25.561 Pain in right knee
CPT/HCPCS: 73562

== ENCOUNTER → 2023-04-13 09:57 | Outpatient (CLI) | payer OTHER, SELFPAY ==
--- NOTE | 2023-04-13 | DI.MG.S_ITS ---
BILATERAL DIGITAL SCREENING MAMMOGRAM 3D/2D WITH CAD: 04/13/2023 CLINICAL: Routine screening. Comparison is made to exams dated: 01/20/2022 mammogram, 02/02/2018 mammogram, and 06/25/2011 mammogram - [facility]. Both breasts are heterogeneously dense, which may obscure small masses (category c / 51-75% glandular tissue). Current study was also evaluated with a Computer Aided Detection (CAD) system. No significant masses, calcifications, or other findings are seen in either breast. There has been no significant interval change. IMPRESSION: NEGATIVE There is no mammographic evidence of malignancy. A 1 year screening mammogram is recommended. Based on the Tyrer Cuzick model (a risk assessment model) the patient's lifetime risk is 8.2% and her 10 year risk is 3.3%. According to the ACR, ACS, and NCCN guidelines, an annual breast MRI exam along with mammogram is recommended if the patient's lifetime risk is 20% or greater. This exam was interpreted at Station ID: [id number]. NOTE: For mammograms, a report in lay terms will be sent to the patient. Approximately 15% of breast malignancies will not be visualized mammographically. In the management of a palpable breast mass, a negative mammogram must not discourage biopsy of a clinically suspicious lesion. Electronically Signed By: Jake ferrer/maura:04/13/2023 12:27:43 letter sent: Normal Exam ACR BI-RADS Category 1: Negative [id number]
== END ==
PROVIDERS: Family Provider Student in an Organized Health Care Education/Training Program; PCP Family Medicine; Referring Provider Family Medicine; Visit Provider Family Medicine
DX: Z12.31 Encounter for screening mammogram for malignant neoplasm of breast (principal)
CPT/HCPCS: 77063; 77067

== ENCOUNTER → 2024-03-16 16:43 | Outpatient (CLI) | payer OTHER, SELFPAY ==
--- NOTE | 2024-03-16 16:44 | DI.MRI.S_ITS ---
PROCEDURE: MR HEAD/BRAIN WO/W CON INDICATIONS: Amaurosis fugax TECHNIQUE: Noncontrast axial T1 spin echo, axial T2 fast spin echo, sagittal and axial FLAIR, coronal T2 fast spin echo, axial gradient echo, axial diffusion and ADC through the brain. After the administration of contrast, axial and coronal and sagittal 3D VIBE or T1 spin echo with fat saturation through the brain. COMPARISON: None. FINDINGS: Image quality: Excellent. CSF Spaces: Basal cisterns are patent. No extra-axial fluid collections. Ventricles are normal in size and shape. Brain: No midline shift. No intracranial bleeds or masses. No abnormal intracranial enhancement. The brainstem appears normal. Diffusion-weighted images demonstrate no acute infarct. No chronic ischemic insults. Normal intravascular flow voids are present. Skull and face: Calvarial marrow is normal in signal. Orbits appear normal. Sinuses: Sinuses and mastoids appear clear. IMPRESSION: No cause for patient's symptoms is identified. No acute intracranial abnormalities. Normal appearance of the brain. Dictated by: Dayne Kelsey M.D. on 03/19/2024 at 9:01 Approved by: Dayne Kelsey M.D. on 03/19/2024 at 9:04
== END ==
PROVIDERS: Family Provider Student in an Organized Health Care Education/Training Program; PCP Family Medicine; Referring Provider Family Medicine; Visit Provider Family Medicine
DX: G45.3 Amaurosis fugax (principal)
CPT/HCPCS: 70553; A9579

== ENCOUNTER → 2024-03-20 10:15 | Outpatient (CLI) | payer OTHER, SELFPAY ==
--- NOTE | 2024-03-20 10:16 | DI.ECHO.S_ITS ---
[facility]---------+ Hospital : : [id number] : [place] : : [id number] : : Phone: [phone] Echocardiogram Report + + :Name: GO SUMMERS Study Date: 03/20/2024 Height: 62 in : :Hospital ReadingLocation: Weight: 111 lb : : Gender: Female BSA: 1.5 m2 : :: 1960 Age: 63 yrs BP: 127/72 mmHg: :Reason For Study: Amaurosis Fugax (ICD Code 379.01) : :Ordering Physician: JAMES : :DANILO Performed By: Frandy Mohamud : :Referring: DANILO RAMIREZ : + + Interpretation Summary 1) Normal left ventricular thickness, size, wall motion, and systolic function (EF 55-60%). 2) Normal right ventricular size and function. 3) No significant valvular abnormalities. 4) No prior Echo available for comparison. Procedure: A two-dimensional transthoracic echocardiogram with color flow and Doppler was performed. The study quality was technically adequate. There is no prior echocardiogram noted for this patient. The patient was in sinus rhythm with heart rates between 58-70 bpm during the exam. Left Ventricle: The left ventricle is normal in size and wall thickness. The ejection fraction is estimated to be 55-60%. Left ventricular systolic function appears normal without focal wall motion abnormalities. Diastolic parameters suggest a relaxation abnormality of the left ventricle, consistent with probable normal filling pressures. Right Ventricle: The right ventricle is normal size. The right ventricular systolic function is normal. Atria: The left atrial size is normal. Right atrial size is normal. The interatrial septum grossly appears intact with no obvious evidence for an atrial septal defect. Mitral Valve: The mitral valve is normal. There is no mitral valve stenosis. There is trace mitral regurgitation. Aortic Valve: The aortic valve is trileaflet. There is no aortic valve stenosis. No aortic regurgitation is present. Tricuspid Valve: The tricuspid valve is normal. There is no tricuspid stenosis. There is a trace or physiologic amount of tricuspid regurgitation. Pulmonic Valve: The pulmonic valve is not well visualized. There is no pulmonic valvular stenosis. There is no pulmonic valvular regurgitation. Great Vessels: The aortic root is normal size. The dimensions of the ascending aorta are normal. The IVC is of normal diameter and collapses greater than 50% with a sniff. This suggests a low right atrial pressure of 3 mm Hg. Pericardium/ Pleura There is no pericardial effusion. There is no pleural effusion. MMode/2D Measurements & Calculations LVIDd: 4.6 cm LVOT diam: 2.0 cm LVIDs: 3.4 cm Ao root diam: 2.8 cm FS: 25.8 % asc Aorta Diam: 2.8 cm IVSd: 0.63 cm Ao Arch Diam (Prox Trans): 2.4 cm LVPWd: 0.90 cm LV gil. diameter/BSA (cm/m^2): 3.1 LV sys. diameter/BSA (cm/m^2): 2.3 LA A2 area: 14.5 cm2 RA long axis: 3.9 cm LA A4 area: 15.4 cm2 RA area: 9.0 cm2 LA length (vol): 4.7 cm RA vol: 17.8 ml LA vol: 40.9 ml RA : 11.9 ml/m2 LA vol index: 27.5 ml/m2 IVC diam: 1.5 cm RVD1 (basal): 2.8 cm RVD2 (mid): 2.6 cm TAPSE: 2.4 cm Doppler Measurements & Calculations Ao V2 max: 125.0 cm/sec LVOT Max Edy: 89.1 cm/sec Ao V2 mean: 86.9 cm/sec LV V1 max P.2 mmHg Ao max P.3 mmHg LV V1 VTI: 20.4 cm Ao mean P.3 mmHg FRANKIE(I,D): 2.3 cm2 Ao V2 VTI: 28.8 cm FRANKIE(V,D): 2.3 cm2 sev ratio: 0.71 FRANKIE indexed to BSA (cm^2/m^2): 1.5 MV E max edy: 55.8 cm/sec PA V2 max: 84.4 cm/sec MV A max edy: 68.8 cm/sec PA V2 mean: 62.1 cm/sec MV E/A: 0.81 PA mean P.7 mmHg Med Peak E' Edy: 9.3 cm/sec PA pr(Accel): 19.1 mmHg E/E' med: 6.0 Lat Peak E' Edy: 12.9 cm/sec E/E' lat: 4.3 E/e' average: 5.2 MV dec time: 0.21 sec SV(LVOT): 66.2 ml Reading Physician:02:08 PM
== END ==
PROVIDERS: Family Provider Student in an Organized Health Care Education/Training Program; PCP Family Medicine; Referring Provider Family Medicine; Visit Provider Family Medicine
DX: G45.3 Amaurosis fugax (principal)
CPT/HCPCS: 93306

== ENCOUNTER → 2024-05-18 10:45 | Outpatient (CLI) | payer OTHER, SELFPAY ==
--- NOTE | 2024-05-18 10:46 | DI.RAD.S_ITS ---
PROCEDURE: XR DEXA AXIAL SKELETON INDICATIONS: SCREENING FOR OSTEOPOROSIS COMPARISON: [facility], RICARDO, XR DEXA AXIAL SKELETON, 01/13/2022, 14:22. FINDINGS: Lumbar Spine: Bone mineral density is 0.835 g/cm2, T score -1.9, -1.9 Left Hip: Bone mineral density is 0.798 g/cm2, T score -1.2, -1.3 Left Femoral Neck: Bone mineral density is 0.655 g/cm2, T score -1.7, -1.6 Right Hip: Bone mineral density is 0.752 g/cm2, T score -1.6, -1.6 Right Femoral Neck: Bone mineral density is 0.574 g/cm2, T score -2.5, -3.1 Fracture Risk Calculation (when applicable): 10-year fracture risk of a major osteoporotic fracture 11% and of a hip fracture 3.4% (T score greater or equal to -1.0 to: NORMAL) (T score from -1.1 to -2.4: OSTEOPENIA) (T score less than or equal to -2.5: OSTEOPOROSIS) IMPRESSION: There is osteoporosis of the right femoral neck. There is osteopenia of the lumbar spine, left hip, left femoral neck and right hip. Follow-up guidelines as follows: Osteoporosis: Consider a repeat DEXA and Vertebral Fracture Assessment (VFA) exam in 2 years or sooner if medically necessary, to reassess this patient's status. Osteopenia: Consider a repeat DEXA in 2-3 years to reassess this patient's status, or if there is a new clinical indication. Normal: Consider a repeat DEXA in 5 years or sooner, or if there is a new clinical indication. All treatment decisions require clinical judgment and consideration of individual patient factors, including patient preferences, comorbidities, previous drug use, risk factors not captured in the FRAX model (e.g., frailty, falls, vitamin D deficiency, increased bone turnover, interval significant decline in bone density ) and possible under- or over-estimation of fracture risk by FRAX. In addition, the NOF Guide recommends that FDA-approved medical therapies be considered in postmenopausal women and men age >= 50 years with a: * Hip or vertebral (clinical or morphometric) fracture * T-score of <=-2.5 at the spine or hip * Ten-year fracture probability by FRAX of >= 3% for hip fracture or >=20% for major osteoporotic fracture. People with diagnosed cases of osteoporosis or at high risk for fracture should have regular bone mineral density tests. For patients eligible for Medicare, routine testing is allowed once every 2 years. The testing frequency can be increased to one year for patients who have rapidly progressing disease, those who are receiving or discontinuing medical therapy to restore bone mass, or have additional risk factors. Dictated by: Yung Koroma M.D. on 05/18/2024 at 15:05 Approved by: Yung Koroma M.D. on 05/18/2024 at 15:30
== END ==
LOC: RAD 10:45
PROVIDERS: Family Provider Student in an Organized Health Care Education/Training Program; PCP Family Medicine; Referring Provider Family Medicine; Visit Provider Family Medicine
DX: M81.0 Age-related osteoporosis without current pathological fracture (principal); Z78.0 Asymptomatic menopausal state
CPT/HCPCS: 77080

== ENCOUNTER → 2024-12-24 12:37 | Outpatient (CLI) | payer OTHER, SELFPAY ==
--- NOTE | 2024-12-24 12:38 | DI.MG.S_ITS ---
MM screening mammo BI: 12/24/2024. BI-RADS: 1 CLINICAL: 64-year old female for bilateral screening mammogram. Tyrer-Cuzick lifetime risk of 4.3%. No personal or first-degree family history of breast cancer. The patient had a prior right breast biopsy. PRIOR EXAMS 04/13/2023, 01/20/2022, 02/02/2018. MAMMOGRAPHY TECHNIQUE: 2D and 3D (tomosynthesis) digital mammographic views obtained, with additional images as needed for full coverage. Current study was also evaluated with a Computer Aided Detection (CAD) system. DENSITY C. The breasts are heterogeneously dense, which may obscure small masses. MAMMOGRAPHY FINDINGS Bilateral: No suspicious mass, asymmetry, microcalcification, or other abnormality seen. No significant change from comparison. IMPRESSION: * No evidence of malignancy. RECOMMENDATIONS Bilateral * Annual screening mammography. OVERALL ASSESSMENT CATEGORY BI-RADS-1: Negative. The [employer] recommends annual screening mammography beginning at age 40 for women with average risk of breast cancer. ELECTRONICALLY SIGNED: Camelia Mcdonough M.D. on 12/24/2024 at 04:33:34 PM PT Interpreting Station ID: [id number]
== END ==
PROVIDERS: Family Provider Student in an Organized Health Care Education/Training Program; PCP Family Medicine; Referring Provider Family Medicine; Visit Provider Family Medicine
DX: Z12.31 Encounter for screening mammogram for malignant neoplasm of breast (principal); R92.333 Mammographic heterogeneous density, bilateral breasts
CPT/HCPCS: 77063; 77067